=== PATIENT | male | born 1950 | race Caucasian/White ===

== ENCOUNTER 2018-02-13 15:23 | Outpatient (CLI) | payer OTHER, SELFPAY ==
--- NOTE | 2018-02-13 14:55 | DI.RAD_ITS ---
SYMPTOMS/DIAGNOSIS: RT HIP PAIN, M25.559 RIGHT HIP AND PELVIS: Two views. There is moderately severe narrowing of the right hip joint. There are osteophytes arising from the acetabular roof and the femoral head. Mild subchondral sclerosis is present. The left hip shows similar changes. The sacroiliac joints and symphysis pubis are intact. The bones are intact. Surgical clips are seen inferior to the pelvis most consistent with prior vasectomy. Post surgical changes are seen in the lower lumbar spine. IMPRESSION: Moderately severe degenerative changes of the hips, right greater than left.
== END 2018-02-13 15:43 ==
PROVIDERS: PCP Emergency Medicine; Visit Provider Emergency Medicine
DX: M25.551 Pain in right hip (principal); M16.0 Bilateral primary osteoarthritis of hip
CPT/HCPCS: 73502

== ENCOUNTER 2018-04-15 12:47 | Outpatient (CLI) | payer OTHER, SELFPAY ==
[2018-04-15 14:53] LABS: HCT 43.6 % (40.0-50.0); HGB 14.9 g/dL (13.5-17.5); Mean Corp. HGB Concentration 34.2 g/dL (32.0-36.0); Mean Corpuscular Hemoglobin 31.4 pg (27.0-33.0); Mean Corpuscular Volume 91.8 fL (80-95); Mean Platelet Volume 10.2 fL (8.0-11.0); Platelet Count 229 x1000/uL (130-400); RBC 4.75 m/cumm (4.50-6.00); RBC Distribution Width 13.2 % (11.8-14.1); White Blood Cell Count 8.27 k/cumm (4.4-10.8)
== END 2018-04-15 13:07 ==
PROVIDERS: PCP Emergency Medicine; Visit Provider Orthopaedic Surgery
DX: M25.551 Pain in right hip (principal); M16.11 Unilateral primary osteoarthritis, right hip; Z01.818 Encounter for other preprocedural examination
CPT/HCPCS: 36415; 85027; 86850; 86900; 86901

== ENCOUNTER 2018-04-22 08:56 | Inpatient (IN) | payer OTHER, MEDICARE, SELFPAY ==
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
[2018-04-15 14:20] VITALS: BP 118/80; PULSE 88; RESP 17; TEMP 37.1; O2SAT 97
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
[2018-04-22] VITALS (17 sets, daily range): BP systolic 79–123; BP diastolic 45–79; PULSE 56–92; RESP 11–18; TEMP 35.9–36.6; O2SAT 94–98
[2018-04-22] MEDS: Lactated Ringers 1,000 ML 80 ML IV ×4 (10:06→17:10)
[2018-04-22 14:20] LABS: HCT 38.4 % (40.0-50.0); HGB 12.9 g/dL (13.5-17.5)
--- NOTE | 2018-04-22 15:06 | DI.RAD_ITS ---
SYMPTOM/DIAGNOSIS: CHECK TOTAL HIP COMPONENTS IN RR PORTABLE PELVIS: Patient is status post placement of a right total lhip prosthesis. The components appear well aligned.
[2018-04-22] MEDS: fentaNYL 100 MCG/2 ML VIAL IVP ×2 (16:15→17:02)
--- NOTE | 2018-04-22 17:58 | NUR.NOTE ---
Nursing Note: 0-pt arrived via stretcher to room 235 with iv running in left forearm ,pt is awake alert oriented ,s/p right hip has xeroform drsg intact with and abductor pillow between legs
[2018-04-22] MEDS: Ketorolac 30 MG/ML VIAL IVP (18:58)
[2018-04-22] MEDS: oxyCODONE-CR 10 MG TABCR PO (18:58)
[2018-04-22] MEDS: Normal Saline Flush 10 ML SYR IV (19:00)
[2018-04-22] MEDS: fentaNYL 100 MCG/2 ML VIAL 50 MCG IVP (19:01)
[2018-04-22] MEDS: Docusate Sodium 100 MG CAP PO (19:25)
[2018-04-22] MEDS: Normal Saline 1,000 ML 125 ML IV (19:40)
[2018-04-22] MEDS: Tamsulosin 0.4 MG CAPCR PO ×2 (22:00→23:30)
[2018-04-23] VITALS (7 sets, daily range): BP systolic 95–115; BP diastolic 54–71; PULSE 75–101; RESP 17–19; TEMP 36.4–37.6; O2SAT 94–95
[2018-04-23] MEDS: Ketorolac 30 MG/ML VIAL IVP ×4 (00:16→18:10)
[2018-04-23] MEDS: HYDROcodone 5/Acetaminophen 325 TAB PO ×2 (02:55→09:08)
[2018-04-23] MEDS: Normal Saline 1,000 ML 125 ML IV (03:45)
[2018-04-23] MEDS: oxyCODONE-CR 10 MG TABCR PO ×2 (06:14→18:11)
[2018-04-23 07:59] LABS: HCT 34.6 % (40.0-50.0); HGB 11.3 g/dL (13.5-17.5); Mean Corp. HGB Concentration 32.7 g/dL (32.0-36.0); Mean Corpuscular Hemoglobin 30.5 pg (27.0-33.0); Mean Corpuscular Volume 93.5 fL (80-95); Mean Platelet Volume 10.1 fL (8.0-11.0); Platelet Count 176 x1000/uL (130-400); RBC Distribution Width 12.7 % (11.8-14.1); White Blood Cell Count 7.39 k/cumm (4.4-10.8)
--- NOTE | 2018-04-23 08:06 | PDOC.CMIN ---
- If Service Date Differs Date of service: 04/23/18 Time of Service: 08:06 Care Management Initial Assess REASON FOR HOSPITALIZATION:: OA (R) Hip. PAST MEDICAL HISTORY/PAST SURGICAL HISTORY:: Degenerative joint disease (right/left hip), overweight, onychomycosis, microscopic hematuria, lactose intolerance, hyperlipidemia, hx. tobacco use, osteoarthrosis (bilateral feet), anxiety, BPH, atypical nevi, anxiety disorder. Surgical hx: appendectomy, colonoscopy, vasectomy, arthroscopy left knee, lumbar spinal fusion. PREVIOUS FUNCTIONAL STATUS/SOCIAL/FAMILY SUPPORTS:: Leonard resides in [facility] with his , Lanny. He has three adult children and two grandchildren, all of whom reside in [place] and are reportedly supportive. 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 He is independent with his ADLs and transportation and has all necessary ambulatory equipment. CURRENT FUNCTIONAL STATUS:: Leonard is lying in bed when visits this afternoon. He is engaged in conversation, makes good eye contact, and is talkative. Leonard reports that he has been getting IV and PO pain medications and his pain is well controlled. He is scheduled to retire at the end of the month so is now on 'vacation' during his recovery. Leonard reports that he has a good support system and has no worries about returning home. He is interested at purchasing a raised toilet seat ([employer]) but has all other necessary equipment from a past surgical procedure. ADVANCE DIRECTIVES:: None on file at [facility]. Education provided; Leonard is not interested in completing them out at this time. Has patient been provided with information about the portal?: Yes Did the patient sign up for the portal?: No CODE STATUS:: Full Code INSURANCE COVERAGE / FINANCIAL ISSUES:: Medicare, [employer] [facility]. CURRENT HOME/COMMUNITY SERVICES/EQUIPMENT:: No current home or community services. Patient owns a FWW and cane. PRIMARY CARE PHYSICIAN:: Jose Donnelly MD. POTENTIAL DISCHARGE NEEDS:: Follow up appointment with surgical services, PT services (outpatient or H?). PATIENT/FAMILY EDUCATION NEEDS:: Discharge education, any limitations, and follow up plan of care. Ask Me Three discussion. ANTICIPATED BARRIERS TO DISCHARGE:: No anticipated barriers to discharge. TRANSPORTATION:: Leonard will transport via private vehicle with his , Lanny. PLAN:: Leonard will discharge when medically ready per MD. Anticipate patient will discharge with no services vs. [facility] PT/OT vs. outpatient PT and follow up with surgical services. CM will continue to offer support to patient and care team regarding discharge planning and disposition.
[2018-04-23] MEDS: Cetirizine 10 MG TAB PO (08:26)
[2018-04-23] MEDS: Pantoprazole 40 MG TABCR PO (08:26)
[2018-04-23] MEDS: Sertraline 50 MG TAB PO (08:26)
[2018-04-23] MEDS: Multivitamin w/Minerals TAB 1 TAB PO (08:26)
[2018-04-23] MEDS: Docusate Sodium 100 MG CAP PO ×3 (08:27→19:25)
--- NOTE | 2018-04-23 08:40 | INITIAL_ITS ---
- If Service Date Differs Date of service: 04/23/18 Time of Service: 08:06 Care Management Initial Assess REASON FOR HOSPITALIZATION:: OA (R) Hip. PAST MEDICAL HISTORY/PAST SURGICAL HISTORY:: Degenerative joint disease (right/ left hip), overweight, onychomycosis, microscopic hematuria, lactose intolerance , hyperlipidemia, hx. tobacco use, osteoarthrosis (bilateral feet), anxiety, BPH , atypical nevi, anxiety disorder. Surgical hx: appendectomy, colonoscopy, vasectomy, arthroscopy left knee, lumbar spinal fusion. PREVIOUS FUNCTIONAL STATUS/SOCIAL/FAMILY SUPPORTS:: Leonard resides in [facility] with his , Lanny. He has three adult children and two grandchildren, all of whom reside in [place] and are reportedly supportive. 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 He is independent with his ADLs and transportation and has all necessary ambulatory equipment. CURRENT FUNCTIONAL STATUS:: Leonard is lying in bed when visits this afternoon. He is engaged in conversation, makes good eye contact, and is talkative. Leonard reports that he has been getting IV and PO pain medications and his pain is well controlled. He is scheduled to retire at the end of the month so is now on 'vacation' during his recovery. Leonard reports that he has a good support system and has no worries about returning home. He is interested at purchasing a raised toilet seat ([employer]) but has all other necessary equipment from a past surgical procedure. ADVANCE DIRECTIVES:: None on file at [facility]. Education provided; Leonard is not interested in completing them out at this time. Has patient been provided with information about the portal?: Yes Did the patient sign up for the portal?: No CODE STATUS:: Full Code INSURANCE COVERAGE / FINANCIAL ISSUES:: Medicare, [facility]. CURRENT HOME/COMMUNITY SERVICES/EQUIPMENT:: No current home or community services. Patient owns a FWW and cane. PRIMARY CARE PHYSICIAN:: Jose Donnelly MD. POTENTIAL DISCHARGE NEEDS:: Follow up appointment with surgical services, PT services (outpatient or H?). PATIENT/FAMILY EDUCATION NEEDS:: Discharge education, any limitations, and follow up plan of care. Ask Me Three discussion. ANTICIPATED BARRIERS TO DISCHARGE:: No anticipated barriers to discharge. TRANSPORTATION:: Leonard will transport via private vehicle with his , Lanny. PLAN:: Leonard will discharge when medically ready per MD. Anticipate patient will discharge with no services vs. [facility] PT/OT vs. outpatient PT and follow up with surgical services. CM will continue to offer support to patient and care team regarding discharge planning and disposition.
--- NOTE | 2018-04-23 10:13 | PT.INIE ---
Date of service: 04/23/18 Time of Service: 10:01 PT Notes Inpatient Physical Therapy Evaluation Date: 04/23/2018 Referring Doctor: Abiel Vaz PT Orders: PT CONSULT: Mobilize postop R THR, total hip precautions are, WBAT to R leg. Precautions: WBAT right lower extremity, posterior total hip precautions Patient Profile/Admitting Diagnosis: Patient is a 67-year-old male status post right total hip arthroplasty by Dr. Vaz 04/22/2018 PMHX: Lumbar spinal fusion, arthroscopy left knee, anxiety, depression, appendectomy, colonoscopy, vasectomy Social History/Home Situation: Lives with spouse in house, baseline mobility independent gait without assistive device, independent with ADLs. Patient reports he may need a raised toilet seat or 3 in 1 commode for bathroom to maintain hip at discharge. Equipment Owned/DME: FWW, cane, needs raised toilet seat Subjective: Lying in bed watching TV, alert and agreeable to PT consult. Reports he received pain medication prior to session and not having any pain at this time. present evaluation. Objective: General Observation: IV left upper extremity, Argueta catheter, right hip dressing, YONI hose Mental Status: A and O x3 Pain: 0/10 right hip Bed Mobility/Transfers: Supine to sit HOB 30 degrees min assist for right lower extremity to edge of bed Sit to stand SBA with FWW Bed to chair SBA with FWW Stand to sit: SBA, cues for hand placement Gait: SBA with FWW 25 feet x2, WBAT R LE,, slow step to gait pattern instruction provided for step sequence. Patient left up in chair after gait completed. Therex: Patient has issued DENIA preop packet with home exercise program. Initiated ankle pumps, quad sets, glutes sets, long arc quads x20 reps right lower extremity. Precautions: Patient issued handouts and instructed in 3/3 posterior total hip precautions for right lower extremity, patient verbalized understanding. Balance: Static Sitting: Normal Dynamic Sitting: Normal Static Standing: Fair Dynamic Standing: Fair Special Tests: Mobility Limitations Standardized Measure [facility] AM-PAC 6 clicks Basic Mobility Inpatient Short Form: Raw Score: 18 standardized Score: 43.63 CMS Score: 46.58% CMS Modifier: CK Informed Consent/Education: Patient instructed in purpose of PT consult and plan of care. Assessment: Patient is a 67-year-old male status post right total hip arthroplasty by Dr. Vaz 04/22/2018 in setting of lumbar spinal fusion, arthroscopy left knee. Patient presents with the following impairment level findings: Weakness left hip postoperatively, affecting ability to lift leg into and out of bed, decreased strength with standing transfers and gait mobility, requiring front wheel walker for gait stability postoperatively to prevent falls, decreased static and dynamic standing balance. Due to posterior hip precautions patient would benefit from 3 in 1 commode or raised toilet seat for safe toileting and home setting, requested OT consult for instruction in ADLs with total hip precautions. Anticipate return to home setting once goals met and patient medically clear. Impairments are contributing to the following functional limitations: AMPAC score CMS Score: 46.58 Patient is assessed as Moderate [id number] complexity based on the following: History: See above Examination: See above Presentation: Evolving Decision Making:AMPAC score CMS Score: 46.58 Goals: Goals X1 week 1. Supine-Sit: Independent 2. Sit-Supine: Independent 3. Sit-Stand: Supervision with FWW 4. Stand-Sit: Supervision 5. Bed-Chair: Supervision with FWW 6. Chair-Bed: Supervision with FWW 7. Gait: Supervision with FWW 150 feet, WBAT RLE 8. Stairs: Up/down 3 steps with railing, WBAT RLE, SBA 9. Independent with home exercise program DENIA Plan of Care/Treatment Plan: 1-2x/day, 7 days/week x 1 week. Plan of care has been reviewed with the SCOOTER MECHANIC providing the service under Physical Therapy direction. Initiate Physical Therapy intervention for strengthening, bed mobility, transfers, gait, stairs, balance training, use of assistive device. DISCHARGE RECOMMENDATIONS: Home with raised toilet seat TREATMENT CODE/TIME: 26 minutes IE 10:00 AM G Codes in the area mobility of walking and moving around: current status [id number] CK; projected status GP [id number]. Discharge status (if discharging) GP [id number] CK based on AMPAC score CMS Score: 46.58 Lydia Savage PT Disclaimer: This note was created using [employer] voice recognition software. It was reviewed for major content. However, there may be multiple small discrepancies and errors due to the voice recognition aspects of the software.
--- NOTE | 2018-04-23 10:25 | IN_ITS ---
Date of service: 04/23/18 Time of Service: 10:01 PT Notes Inpatient Physical Therapy Evaluation Date: 04/23/2018 Referring Doctor: Abiel Vaz PT Orders: PT CONSULT: Mobilize postop R THR, total hip precautions are, WBAT to R leg. Precautions: WBAT right lower extremity, posterior total hip precautions Patient Profile/Admitting Diagnosis: Patient is a 67-year-old male status post right total hip arthroplasty by Dr. Vaz 04/22/2018 PMHX: Lumbar spinal fusion, arthroscopy left knee, anxiety, depression, appendectomy, colonoscopy, vasectomy Social History/Home Situation: Lives with spouse in house, baseline mobility independent gait without assistive device, independent with ADLs. Patient reports he may need a raised toilet seat or 3 in 1 commode for bathroom to maintain hip at discharge. Equipment Owned/DME: FWW, cane, needs raised toilet seat Subjective: Lying in bed watching TV, alert and agreeable to PT consult. Reports he received pain medication prior to session and not having any pain at this time. present evaluation. Objective: General Observation: IV left upper extremity, Argueta catheter, right hip dressing , YONI hose Mental Status: A and O x3 Pain: 0/10 right hip Bed Mobility/Transfers: Supine to sit HOB 30 degrees min assist for right lower extremity to edge of bed Sit to stand SBA with FWW Bed to chair SBA with FWW Stand to sit: SBA, cues for hand placement Gait: SBA with FWW 25 feet x2, WBAT R LE,, slow step to gait pattern instruction provided for step sequence. Patient left up in chair after gait completed. Therex: Patient has issued DENIA preop packet with home exercise program. Initiated ankle pumps, quad sets, glutes sets, long arc quads x20 reps right lower extremity. Precautions: Patient issued handouts and instructed in 3/3 posterior total hip precautions for right lower extremity, patient verbalized understanding. Balance: Static Sitting: Normal Dynamic Sitting: Normal Static Standing: Fair Dynamic Standing: Fair Special Tests: Mobility Limitations Standardized Measure [facility] AM-PAC 6 clicks Basic Mobility Inpatient Short Form: Raw Score: 18 standardized Score: 43.63 CMS Score: 46.58% CMS Modifier: CK Informed Consent/Education: Patient instructed in purpose of PT consult and plan of care. Assessment: Patient is a 67-year-old male status post right total hip arthroplasty by Dr. Vaz 04/22/2018 in setting of lumbar spinal fusion, arthroscopy left knee. Patient presents with the following impairment level findings: Weakness left hip postoperatively, affecting ability to lift leg into and out of bed, decreased strength with standing transfers and gait mobility, requiring front wheel walker for gait stability postoperatively to prevent falls, decreased static and dynamic standing balance. Due to posterior hip precautions patient would benefit from 3 in 1 commode or raised toilet seat for safe toileting and home setting, requested OT consult for instruction in ADLs with total hip precautions. Anticipate return to home setting once goals met and patient medically clear. Impairments are contributing to the following functional limitations: AMPAC score CMS Score: 46.58 Patient is assessed as Moderate 28680 complexity based on the following: History: See above Examination: See above Presentation: Evolving Decision Making:AMPAC score CMS Score: 46.58 Goals: Goals X1 week 1. Supine-Sit: Independent 2. Sit-Supine: Independent 3. Sit-Stand: Supervision with FWW 4. Stand-Sit: Supervision 5. Bed-Chair: Supervision with FWW 6. Chair-Bed: Supervision with FWW 7. Gait: Supervision with FWW 150 feet, WBAT RLE 8. Stairs: Up/down 3 steps with railing, WBAT RLE, SBA 9. Independent with home exercise program DENIA Plan of Care/Treatment Plan: 1-2x/day, 7 days/week x 1 week. Plan of care has been reviewed with the PASTRYCOOK providing the service under Physical Therapy direction. Initiate Physical Therapy intervention for strengthening, bed mobility, transfers, gait, stairs, balance training, use of assistive device. DISCHARGE RECOMMENDATIONS: Home with raised toilet seat TREATMENT CODE/TIME: 26 minutes IE 10:00 AM G Codes in the area mobility of walking and moving around: current status [id number] CK; projected status GP [id number]. Discharge status (if discharging) GP [id number] CK based on AMPAC score CMS Score: 46.58 Lydia Savage PT Disclaimer: This note was created using Trampoline voice recognition software. It was reviewed for major content. However, there may be multiple small discrepancies and errors due to the voice recognition aspects of the software.
--- NOTE | 2018-04-23 11:14 | OT.INIE ---
Occupational Therapy Notes Inpatient Occupational Therapy Evaluation Date: 04/23/18 Referring Doctor:Abiel Vaz MD OT Orders: Right DENIA Precautions: Posterior Hip Precautions, WBAT (R) LE PATIENT PROFILE/ADMITTING DIAGNOSIS: Pt is a 67 year old male who s/p (R) total hip on 04/22/[address] Vaz. Past Medical History:Lumbar spinal fusion, arthroscopy left knee, anxiety, depression, appendectomy, colonoscopy, vasectomy, DJD Social History/Home Situation: Pt reports that he lives in a private home with his . He reports that he has 4 stairs into his home with (B) railings and 14 stairs down to his basement where his man cave s with (B) railings. Pt reports that he is (I) with all ADLs/IADLs. Equipment owned/DME: Grab bars, cane, recommend that pt get raised toilet seat to adhere to posterior hip precautions. SUBJECTIVE: Pt sitting in chair when OT arrived. He is agreeable to OT session. OBJECTIVE: General Observation: Argueta, IV (L) UE, (B) YONI stockings Mental Status: A&Ox3 Pain:no c/o pain ROM: RUE WNL L UE WNL STRENGTH: RUE 5/5 throughout LUE 5/5 throughout SENSATION: Pt intact to light touch and sensation through (B) UEs. FUNCTIONAL MOBILITY/ADLS: BATHING Educated on use of long handled sponge DRESSING Dressing LE Pt educated and trained in sock aid for (B) donning of socks which pt was able to demonstrate with ideal technique, trained in use of dressing stick, gas appliance adjuster, shoe horn. Pt was able to demonstrate ideal technique with donning and doffing pants with use of adaptive equipment (I) with adherence to posterior hip precautions. TOILETING Recommend raised toilet seat at home for increased (I) in toileting routine and adherence to posterior hip precautions. BALANCE: Static sitting Normal Dynamic Sitting Normal SPECIAL TESTS: Daily Activity Limitations Standardized Measure [facility] AM -PAC ?6 clicks? Daily Activity Inpatient Short Form: Raw score: 23 Standardized score: 51.12 CMS score: 15.86% CMS modifier: CI INFORMED CONSENT/EDUCATION: Pt instructed in purpose of OT Consult and plan of care. ASSESSMENT: Patient is a 67-year-old male referred to occupational therapy services with diagnosis of s/p (R) posterior hip precautions in setting of Lumbar spinal fusion, arthroscopy left knee, anxiety, depression, appendectomy, colonoscopy, vasectomy, DJD. Patient presents with clinical signs and symptoms consistent with this dx. Pt was educated in trained in adaptive equipment for ADL/IADL routine tto increase pts (I) with adherence to posterior hip precautions. Pt demonstrated ideal technique and was provided written and illustrated handouts for posterior hip precautions, standing up and sitting down s/p surgery, ambulating and performing functional activities with walker, using a sock aid, donning pants with adaptive equipment. Pt verbalized understanding of this. OT recommends that pt return home when medically cleared per MD. Pt would benefit from raised toilet seat for increased (I) in toileting routine with adherence to posterior hip precautions. AMPAC score 23, CMS score 15.86% Patient is assessed as a Low 90318 complexity based on the following: History: See Above Examination: See Above Presentation: Evolving Decision Making: AMPAC score 23, CMS score 15.86% GOALS N/A PLAN OF CARE/TREATMENT PLAN: OT consult only. DISCHARGE RECOMMENDATIONS Home when medically cleared per MD. Recommend raised toilet seat for increased (I) in toileting routine with adherence to posterior hip precautions. TREATMENT TIME/MINUTES/CODES 25 min IE, Self care x1 (10:40) G Codes in the area of self- : washing oneself, toileting, dressing, eating and drinking, current status GO G8987 CI projected status GO [id number]. Discharge status (if discharging) GO [id number]. Rosalia Urbano OTR/L
--- NOTE | 2018-04-23 11:30 | OTIE_ITS ---
Occupational Therapy Notes Inpatient Occupational Therapy Evaluation Date: 04/23/18 Referring Doctor:Abiel Vaz MD OT Orders: Right DENIA Precautions: Posterior Hip Precautions, WBAT (R) LE PATIENT PROFILE/ADMITTING DIAGNOSIS: Pt is a 67 year old male who s/p (R) total hip on 04/22/[address] Vaz. Past Medical History:Lumbar spinal fusion, arthroscopy left knee, anxiety, depression, appendectomy, colonoscopy, vasectomy, DJD Social History/Home Situation: Pt reports that he lives in a private home with his . He reports that he has 4 stairs into his home with (B) railings and 14 stairs down to his basement where his man cave s with (B) railings. Pt reports that he is (I) with all ADLs/IADLs. Equipment owned/DME: Grab bars, cane, recommend that pt get raised toilet seat to adhere to posterior hip precautions. SUBJECTIVE: Pt sitting in chair when OT arrived. He is agreeable to OT session. OBJECTIVE: General Observation: Argueta, IV (L) UE, (B) YONI stockings Mental Status: A&Ox3 Pain:no c/o pain ROM: RUE WNL L UE WNL STRENGTH: RUE 5/5 throughout LUE 5/5 throughout SENSATION: Pt intact to light touch and sensation through (B) UEs. FUNCTIONAL MOBILITY/ADLS: BATHING Educated on use of long handled sponge DRESSING Dressing LE Pt educated and trained in sock aid for (B) donning of socks which pt was able to demonstrate with ideal technique, trained in use of dressing stick, teletypewriter operator, shoe horn. Pt was able to demonstrate ideal technique with donning and doffing pants with use of adaptive equipment (I) with adherence to posterior hip precautions. TOILETING Recommend raised toilet seat at home for increased (I) in toileting routine and adherence to posterior hip precautions. BALANCE: Static sitting Normal Dynamic Sitting Normal SPECIAL TESTS: Daily Activity Limitations Standardized Measure [facility] AM -PAC ?6 clicks? Daily Activity Inpatient Short Form: Raw score: 23 Standardized score: 51.12 CMS score: 15.86 % CMS modifier: CI INFORMED CONSENT/EDUCATION: Pt instructed in purpose of OT Consult and plan of care. ASSESSMENT: Patient is a 67-year-old male referred to occupational therapy services with diagnosis of s/p (R) posterior hip precautions in setting of Lumbar spinal fusion, arthroscopy left knee, anxiety, depression, appendectomy, colonoscopy, vasectomy, DJD. Patient presents with clinical signs and symptoms consistent with this dx. Pt was educated in trained in adaptive equipment for ADL/IADL routine tto increase pts (I) with adherence to posterior hip precautions. Pt demonstrated ideal technique and was provided written and illustrated handouts for posterior hip precautions, standing up and sitting down s/p surgery, ambulating and performing functional activities with walker, using a sock aid, donning pants with adaptive equipment. Pt verbalized understanding of this. OT recommends that pt return home when medically cleared per MD. Pt would benefit from raised toilet seat for increased (I) in toileting routine with adherence to posterior hip precautions. AMPAC score 23, CMS score 15.86% Patient is assessed as a Low 89371 complexity based on the following: History: See Above Examination: See Above Presentation: Evolving Decision Making: AMPAC score 23, CMS score 15.86% GOALS N/A PLAN OF CARE/TREATMENT PLAN: OT consult only. DISCHARGE RECOMMENDATIONS Home when medically cleared per MD. Recommend raised toilet seat for increased (I) in toileting routine with adherence to posterior hip precautions. TREATMENT TIME/MINUTES/CODES 25 min IE, Self care x1 (10:40) G Codes in the area of self- : washing oneself, toileting, dressing, eating and drinking, current status GO G8987 CI projected status GO [id number]. Discharge status (if discharging) GO [id number]. Rosalia Urbano OTR/L
--- NOTE | 2018-04-23 11:48 | PT.INTREAT ---
Date of service: 04/23/18 Time of Service: 11:48 PT Notes Inpatient Physical Therapy Treatment Note Date: 04/23/18 PRECAUTIONS: WBAT R LE SUBJECTIVE: Pt sitting in chair, agreeable to second therapy session. Reports right hip feels 'stiff' but not painful. OBJECTIVE: PAIN: no c/o pain BED MOBILITY/TRANSFERS Sit-stand: SBA wtih FWW Stand-sit: SBA GAIT Assistive Device: FWW Weight bearing: WBAT R LE Assist: SBA Distance: 40ftx2 Deviation: slow ivy with step to gait pattern. Pt returned to chair after gait completed to be up for lunch. THEREX: seated ankle pumps, long arc quads x 20 reps ASSESSMENT: Pt with slowly progressing mobility post op DENIA. Able to be up in chair for most of morning and mobilize twice with PT. PLAN: Progress strengthening Progress gait training TREATMENT CODE/TIME: 24min TAx1 TPx1 11:45 Lydia Savage PT
--- NOTE | 2018-04-23 13:32 | W.PM.PROGNOT ---
Date of Service Date of service: 04/23/18 Time of Service: 13:32 Assessment and Plan (1) Degenerative joint disease of right hip: Start date: 04/22/18 Start time: 08:00 Current visit: Yes Status: Chronic Assessment: Stable postop day #1 right total hip replacement. He is moving well and eating and drinking well. I do not think he needs his Argueta. He also does not need IV fluids. Plan: DC IV fluids. We will keep an IV in for access. Continue to mobilize with PT. Check hemoglobin tomorrow. He will be discharged when he is independent with transfers and ambulation and is taking only p.o. pain meds. Will DC Argueta also. Subjective Patient reports: feels better, tolerating liquids well and tolerating a regular diet Interval history since last seen: Has been up walking twice with physical therapy today. Exam Narrative Exam Narrative: He is afebrile vital signs stable. Hemoglobin 11.3 g this morning. He actively dorsiflexes and plantar flexes his right ankle. He has good capillary refill to the toes. He has normal sensation light touch in the toes on the right. Dressing is dry right hip. Argueta catheter is in place and draining well. Objective Objective Clinical Data: Abnormal lab results 04/22/18 04/23/18 Range/Units 14:12 07:32 RBC 3.70 L (4.50-6.00) m/cumm Hgb 12.9 L 11.3 L (13.5-17.5) g/dL Hct 38.4 L 34.6 L (40.0-50.0) % Vital Signs Temperature 37.1 C 04/23/18 11:26 Temperature Source Tympanic 04/23/18 11:26 Pulse 101 H 04/23/18 11:26 Pulse Rhythm Regular 04/23/18 09:00 Respiratory Rate 17 04/23/18 11:26 Respiratory Effort Non-Labored 04/23/18 09:00 Respiratory Depth Normal 04/23/18 09:00 Respiratory Pattern Normal 04/23/18 09:00 Blood Pressure 95/58 L 04/23/18 11:26 Pulse Oximetry 94 L 04/23/18 11:26 Respiratory End-tidal CO2 36 04/22/18 17:14 Oxygen Delivery Method Room Air 04/23/18 11:26 Oxygen Flow Rate 0 04/23/18 11:26 Pain Level 4 04/23/18 11:34 Intake & Output 04/22/18 04/23/18 04/23/18 23:59 11:59 23:59 Intake Total 2826 / 2826 1107.500 / 1107.500 240 / 240 Output Total 800 / 800 600 / 600 Balance 2025 / 2025 507.500 / 507.500 240 / 240 Intake: IV 2496 / 2496 987.500 / 987.500 Oral 330 / 330 120 / 120 240 / 240 Output: Urine 600 / 600 Estimated Blood Loss 800 / 800 Other: Urine Color Yellow Dark Evita Urine Appearance Clear Clear Emesis Description None Laboratory Results WBC 7.39 k/cumm (4.4-10.8) 04/23/18 07:32 RBC 3.70 m/cumm (4.50-6.00) L 04/23/18 07:32 Hgb 11.3 g/dL (13.5-17.5) L 04/23/18 07:32 Hct 34.6 % (40.0-50.0) L 04/23/18 07:32 MCV 93.5 fL (80-95) 04/23/18 07:32 MCH 30.5 pg (27.0-33.0) 04/23/18 07:32 MCHC 32.7 g/dL (32.0-36.0) 04/23/18 07:32 RDW 12.7 % (11.8-14.1) 04/23/18 07:32 Plt Count 176 x1000/uL (130-400) 04/23/18 07:32 MPV 10.1 fL (8.0-11.0) 04/23/18 07:32
--- NOTE | 2018-04-23 15:28 | PHARADMIT ---
Admission Pharmacy Clinical Review OA (R) hip Code Status Full Code Current Weight 100.3 kg Renally Cleared and Narrow Therapeutic Index Meds Crcl ~68.00 mL/min current meds okay QTc Value / Action Taken QTc from 10/19/17 425 BP Control, Fever BP 95/58 afebrile Electrolytes reviewed n/a DVT Prophylaxis enoxaparin Opiate Usage / Scheduled Bowel Regimen Ordered carlton/prn and carlton docusate Plt/SCr for Heparin / Enoxaparin plt 176 SCr-n/a INR for Warfarin n/a H/H stable, WBC/Bands h/h 11.3/34.6 wbc 7.39 Antibiotic appropriateness n/a Cultures and Sensitivities n/a Surgical ABX d/c within 24 hr yes DM control / Insulin Dosing n/a Heart Failure (Check EF%) (SOLANGE's, B-Block, Diuretics) none IV to PO Switch n/a Home Meds Reviewed yes Home Meds Not Ordered all ordered Comments working with PT and on pain control
[2018-04-23] MEDS: Enoxaparin 40 MG/0.4 ML SYR SC (16:08)
[2018-04-23] MEDS: Normal Saline Flush 10 ML SYR IV (18:10)
--- NOTE | 2018-04-23 18:16 | ROE_ITS ---
DATE OF PROCEDURE: April 22, 2018 PREOPERATIVE DIAGNOSIS: Osteoarthritis right hip. POSTOPERATIVE DIAGNOSIS: Osteoarthritis right hip. PROCEDURE: Right total hip arthroplasty. COMPONENTS USED: A size 6 DePuy stem, a size 52 acetabular shell, a 52 x 36 acetabular insert, and a 36-mm +1.5 ceramic femoral head. The components were all press fit. SURGEON: Abiel Vaz M.D. SURGICAL ASST: Binu French PA-C ANESTHESIA: Spinal, Chiquis Ruiz CRNA ESTIMATED BLOOD LOSS: 500 cc INDICATIONS: This is a 67-year-old white male with end-stage osteoarthritis of his right hip. This has been progressing for several years. He has reached the point now where he is extremely limited i n his activities because of pain. He has noted considerable restriction of motion of his hip as well . X-rays confirmed end-stage osteoarthritis of his right hip. Total hip arthroplasty was recommende d to alleviate his pain and to restore useful function to the right hip. The risks and complications of the procedure were explained to the patient in detail preoperatively. PROCEDURE: The patient was taken to the Operating Room on 04/22/18. After successful spinal anesthe tic was administered, he was placed in the right lateral position on the operating table. His positi on was maintained with a pneumatic beanbag. The right hip was then prepped and draped free in the [facility] sterile fashion. A standard posterolateral incision was made centered over the greater trochanter. The incision was c arried down to the iliotibial band and gluteus fascia. The iliotibial band and gluteus fascia were i ncised in line with the skin incision. Charnley self-retaining retractors were inserted. While atte mpting to expose the posterior capsule, it was noted that the patient had marked restriction of inter nal rotation. I proceeded to incise the posterior capsule with electrocautery. Internal rotation di d not improve. I then tried to release as much of the capsule as possible, especially from the poste rior femoral neck. I then put a bone hook under the femoral neck and despite using a lot of force an d with the help of commissary assistant, I could not dislocate his right hip. I tried multiple attempts even af ter trying to excise as much of the capsule as I could see from this approach. They were unsuccessfu l. I then used an oscillating saw and transected the femoral neck. I then was able to remove the fe moral head in a piecemeal fashion using a saw, osteotomes, and a mallet. I then cut the femoral neck again at the appropriate level and angle to help with exposure. Anterior and posterior acetabular r etractors were inserted. I attempted to excise more of the capsule. The capsule of the hip was calc ified and was difficult to excise. Even the scalpel could not go through some of the tissue. With t carlos help of a rongeur and osteotome I was able to improve exposure. Once exposure was obtained, reaming was straightforward and simple. I performed serial reamings of t carlos acetabulum with increasing size reamers up until there was a good fit at size 52 mm. There was ra w bleeding from all acetabular surfaces at this point. A 52-mm acetabular shell was then press fit w ith an excellent fit with no motion. The press fit was supplemented by one screw through the acetabu lar shell. A trial insert was placed and attention was turned to the femoral side. Again, the soft tissues were very tight and contracted. I needed the femoral neck elevator to elevat e the femur into the wound. I entered the femoral canal, first using a box chisel and then using ser ial straight reamers on power up to a size 6-7. Serial broaching was performed until I felt there wa s an excellent fit at size 6. I attempted to put the trial high-offset neck and femoral head but the soft tissues were too tight to allow me to put the trial components on the broach. I decided not to get an intraoperative x-ray and to just size the head by my clinical impression. The trial broach a s removed and the actual stem, porous coated, size 6 DePuy stem was then inserted and impacted into p lace until fully seated. I then was able to put a trial 1.5 36-mm head on the actual stem and perfor m a trial reduction. The trial reduction showed a stable hip to 90 degrees of flexion and 60 degrees of internal rotation. It was stable with external rotation and extension and there was minimal shuc k with longitudinal traction. I felt this was the correct size. I dislocated the hip again, took the trial femoral head off, and put the actual ceramic 36-mm +1.5 fe yuliet head onto the neck of the stem and impacted it into place with the impactor and mallet. I then reduced it into the acetabulum. The right thigh was abducted on a Renner stand and closure was begun. I filled the wound with tranexamic acid 2 grams in 150 cc of saline and let it stay in the wound for a minute and a half before suctioning. I then placed Betadine and saline in the wound, irrigated the wound thoroughly, and again let the Betadine stay in the wound for a minute before suctioning. Lorraine ng the approach I excised most of the hip capsule and there was no posterior capsule remaining to per form a posterior capsular flap. I infiltrated the margins of the wound down into the depths of the w ound with 0.5% Marcaine with epinephrine solution. I approximated the iliotibial band and gluteus fa scia with interrupted [id number]-[id number] sutures of #1 Vicryl suture material. The subcu was approximat ed with interrupted #2-0 Vicryl sutures and the skin edges were approximated with skin cathy. Ster ile dressings were applied of Xeroform gauze, sterile gauze 4x4s, ABD pad, and taped with foam elasti c tape. The patient was turned supine on the operating table and an abduction pillow splint was plac ed between his legs. He tolerated the procedure well. Hemoglobin obtained at the end of the case intraoperative was 12.9 grams. He was discharged to the Recovery Room in good condition.
[2018-04-23] MEDS: Tamsulosin 0.4 MG CAPCR PO (19:43)
[2018-04-24] MEDS: Normal Saline Flush 10 ML SYR IV ×3 (00:08→13:02)
[2018-04-24] MEDS: Ketorolac 30 MG/ML VIAL IVP ×3 (00:08→13:01)
[2018-04-24 00:14] VITALS: BP 104/63; PULSE 90; RESP 17; TEMP 36.9; O2SAT 92
[2018-04-24 04:52] VITALS: BP 142/72; PULSE 89; RESP 19; TEMP 37.6; O2SAT 96
[2018-04-24] MEDS: oxyCODONE-CR 10 MG TABCR PO (06:14)
[2018-04-24 07:27] LABS: HCT 31.3 % (40.0-50.0); HGB 10.3 g/dL (13.5-17.5); Mean Corp. HGB Concentration 32.9 g/dL (32.0-36.0); Mean Corpuscular Hemoglobin 30.7 pg (27.0-33.0); Mean Corpuscular Volume 93.2 fL (80-95); Mean Platelet Volume 10.5 fL (8.0-11.0); Platelet Count 162 x1000/uL (130-400); RBC 3.36 m/cumm (4.50-6.00); RBC Distribution Width 12.5 % (11.8-14.1); White Blood Cell Count 9.09 k/cumm (4.4-10.8)
[2018-04-24 07:40] VITALS: BP 119/64; PULSE 88; RESP 18; TEMP 36.7; O2SAT 95
[2018-04-24] MEDS: Multivitamin w/Minerals TAB 1 TAB PO (08:04)
[2018-04-24] MEDS: Sertraline 50 MG TAB PO (08:04)
[2018-04-24] MEDS: HYDROcodone 5/Acetaminophen 325 TAB PO (08:04)
[2018-04-24] MEDS: Pantoprazole 40 MG TABCR PO (08:04)
[2018-04-24] MEDS: Docusate Sodium 100 MG CAP PO ×2 (08:04→13:02)
[2018-04-24] MEDS: Cetirizine 10 MG TAB PO (08:05)
--- NOTE | 2018-04-24 10:03 | PT.INTREAT ---
Date of service: 04/24/18 Time of Service: 10:03 PT Notes Inpatient Physical Therapy Treatment Note Date: 04/24/18 PRECAUTIONS: WBAT on R, Posterior THR Prec SUBJECTIVE: Leonard states that he is feeling good and has no pain at this time. OBJECTIVE: PAIN: No c/o pain BED MOBILITY/TRANSFERS Sit-supine: I with flat Sit-stand: S Stand-sit: S GAIT Assistive Device: FWW Weight bearing: WBAT on R Assist: SBA Distance: 200' x2 Deviation: Step-through gaot pattern, cueing for increased pace THEREX: Patient completed a LE strengthening and stabilization program, as per flow sheet. STAIRS: Up/down 3x4 and 2x6 using B rails and a step-to pattern with supervision. ASSESSMENT: Patient tolerated session well without complaint. He was able to tolerate a progression in gait distance with FWW support. He requires cueing for increased pacing. Patient would benefit from continued strengthening and gait training. PLAN: Continue with PT's POC TREATMENT CODE/TIME: 40 minutes; TAx2/TP
[2018-04-24 11:45] VITALS: BP 107/67; PULSE 88; RESP 17; TEMP 36.1; O2SAT 94
--- NOTE | 2018-04-24 11:57 | PDOC.CMPRO ---
- If Service Date Differs Date of service: 04/24/18 Time of Service: 11:57 Care Management Progress Note S/O: Leonard is lying in bed with his , Lanny, and grandson at bedside. He is s/t day #2 for OA right hip. He is engaged in conversation, makes good eye contact, and is talkative. He reports that he is feeling well. He has been working with PT and will benefit from continued strengthening and gait training per PT. Anticipate patient will discharge home in the next day or two with new home PT/OT (?) vs. outpatient PT. A: 67 year old male admitted for OA Hip (R). P: Leonard will discharge home when medically ready per MD. Anticipate patient will discharge with outpatient PT (?) and follow up with surgical services. Leonard will transport via private vehicle with his , Lanny. CM will continue to offer support to patient, family, and care team regarding discharge planning and disposition.
--- NOTE | 2018-04-24 12:07 | CMPROGNOTE_ITS ---
- If Service Date Differs Date of service: 04/24/18 Time of Service: 11:57 Care Management Progress Note S/O: Leonard is lying in bed with his , Lanny, and grandson at bedside. He is s /t day #2 for OA right hip. He is engaged in conversation, makes good eye contact, and is talkative. He reports that he is feeling well. He has been working with PT and will benefit from continued strengthening and gait training per PT. Anticipate patient will discharge home in the next day or two with new home PT/OT (?) vs. outpatient PT. A: 67 year old male admitted for OA Hip (R). P: Leonard will discharge home when medically ready per MD. Anticipate patient will discharge with outpatient PT (?) and follow up with surgical services. Leonard will transport via private vehicle with his , Lanny. CM will continue to offer support to patient, family, and care team regarding discharge planning and disposition.
--- NOTE | 2018-04-24 13:11 | PT.INTREAT ---
Date of service: 04/24/18 Time of Service: 13:12
--- NOTE | 2018-04-24 13:40 | DSE_ITS ---
Date of service: 04/24/18 Time of Service: 13:33 DS: Diagnosis Discharge Diagnosis (1) Degenerative joint disease of right hip: Status: Chronic Discharge Plan Disposition Patient Disposition: HOME Condition: Good Discharge Details Reason For Visit: OA (R) HIP Admit Date/Time: 04/22/18 08:56 Admit Provider: Abiel Vaz Attending Provider: Aibel Vaz Primary Care Provider: Jose Donnelly Hospital Course Hospital Course: Patient was taken to the operating room on 04/22/18 where he underwent a R total hip arthroplasty without complication. He was mobilized by PT per protocol, achieving independance with transfers and ambulation by 04/24/18. He remained afebrile throughout his post operative course. Hemoglobin was 10.3 g on POD #2 and he showed no symptoms of anemia. By 04/24/18 he had achieved all acute care goals and was ready for discharge home. Home Meds and New Rx's Prescriptions: New hydrocodone-acetaminophen 5-325 mg tablet 1 tab PO Q6H PRN (Reason: pain) Qty: 20 RF: 0 ibuprofen 800 mg tablet 800 mg PO TID Qty: 60 RF: 0 ferrous sulfate 325 mg (65 mg iron) tablet,delayed release (DR/EC) 325 mg PO DAILY Qty: 30 RF: 0 Continue sertraline 50 mg tablet 50 mg PO DAILY Qty: 90 RF: 3 cetirizine [Zyrtec] 10 MG capsule 10 mg PO DAILY RF: 0 tamsulosin [Flomax] 0.4 MG capsule 0.4 mg PO HS RF: 0 Discharge Instructions Additional Instructions: Total hip precautions R for 6 weeks post-op. Walk every day as much as your discomfort allows. Use walker, crutches, or cane as long as you limp. May shower and get cathy wet tomorrow. After showering, pat cathy dry and cover with light gauze dressing so they don't catch on pants. Elevate R leg when sitting. Outpatient physical therapy with Michael [facility] on Sunday. Follow up in 's office in 3 weeks. Take one baby aspirin(81 mg) twice/day for 30 days to prevent blood clots in your legs. Take ibuprofen 3 times/day to decrease swelling and inflammation. Take hydrocodone, if needed, for breakthrough pain. Take one iron pill daily with food for one month to help restore blood loss from surgery. Referrals: Abiel Vaz MD [ [facility] STAFF PHYSICIAN] - (f/u 3 weeks) Adam Snyder PT [PHYSICAL THERAPIST] - None (Rehab R total hip replacement. Total hip precautions R for 6 weeks. Begin Sunday04/29/18 at the latest.) Activity:: Activity as Tolerated Equipment/Supplies:: Walker Diet:: As Tolerated Discharge Orders Discharge Orders: Discharge Order (Routine); Ordered 04/24/18 Ordered By: Abiel Vaz DS: Data Vitals/I&O Vitals and I&O: Vital Signs Temperature 36.1 C L 04/24/18 11:45 Temperature Source Tympanic 04/24/18 11:45 Pulse 88 04/24/18 11:45 Pulse Rhythm Regular 04/24/18 09:38 Respiratory Rate 17 04/24/18 11:45 Respiratory Effort Non-Labored 04/24/18 09:38 Respiratory Depth Normal 04/24/18 09:38 Respiratory Pattern Normal 04/24/18 09:38 Blood Pressure 107/67 04/24/18 11:45 Pulse Oximetry 94 L 04/24/18 11:45 Respiratory End-tidal CO2 36 04/22/18 17:14 Oxygen Delivery Method Room Air 04/24/18 11:45 Oxygen Flow Rate 0 04/24/18 11:45 Pain Level 0 04/24/18 13:01 Intake & Output 04/23/18 04/24/18 04/24/18 23:59 11:59 23:59 Intake Total 2229.583 / 2229.583 400 / 400 Output Total 450 / 450 300 / 300 Balance 1779.583 / 1779.583 100 / 100 Intake: IV 1749.583 / 1749.583 Oral 480 / 480 400 / 400 Output: Urine 450 / 450 300 / 300 Other: Urine Color Yellow Light Evita Urine Appearance Clear Clear Urine Odor Strong Normal Voiding Methods Urinal Toilet Labs on day of discharge: Labs from last 24 hours 04/24/18 06:44 WBC 9.09 RBC 3.36 L Hgb 10.3 L Hct 31.3 L MCV 93.2 MCH 30.7 MCHC 32.9 RDW 12.5 Plt Count 162 MPV 10.5 PFSH Family History Mother No problems noted. Father Essential hypertension Sister No problems noted. Brother No problems noted. Grandfather No problems noted. Grandfather No problems noted. Grandmother No problems noted. Grandmother Neoplasm H/O arthroscopy of left knee (Resolved) History of lumbar spinal fusion (Resolved) Appendectomy Colonoscopy - IV Sedation (07/21/16) Colonoscopy - MAC Vasectomy Family History Mother No problems noted. Father Essential hypertension Sister No problems noted. Brother No problems noted. Grandfather No problems noted. Grandfather No problems noted. Grandmother No problems noted. Grandmother Neoplasm Social History household members: spouse housing: house current occupational status: employed current occupation: [employer] pets and animals: Yes pets and animals: cat(s) frequency: 1-2 times per week duration: 15-30 minutes/day Smoking/Tobacco Use Status: Former Tobacco Use how long ago did patient quit smoking: QUIT 1988 alcohol intake: current alcohol intake frequency: a few times a month details: weekends only substance use type: does not use claude/zoroastrian: Sikh special claude needs: No Surgical History H/O arthroscopy of left knee (Resolved) History of lumbar spinal fusion (Resolved) Appendectomy Colonoscopy - IV Sedation (07/21/16) Colonoscopy - MAC Vasectomy Social History household members: spouse housing: house current occupational status: employed current occupation: [employer] pets and animals: Yes pets and animals: cat(s) frequency: 1-2 times per week duration: 15-30 minutes/day Smoking/Tobacco Use Status: Former Tobacco Use how long ago did patient quit smoking: QUIT 1988 alcohol intake: current alcohol intake frequency: a few times a month details: weekends only substance use type: does not use claude/zoroastrian: Sikh special claude needs: No
--- NOTE | 2018-04-24 14:28 | PDOC.CMDIS ---
- If Service Date Differs Date of service: 04/24/18 Time of Service: 14:28 LACE Index Scoring Tool - Questions: Length of Stay (in days): 3 Acuity (Admit via E.D.?): No Care Management Discharge Reason for Hospitalization: OA (R) Hip. Discharge Plan: Leonard will discharge home when medically ready per MD. Anticipate patient will discharge with outpatient PT services and follow up with surgical services. Leonard will transport via private vehicle with his , Lanny. Patient/Family Education Needs: Discharge education, any limitations, and follow up plan of care. Ask Me Three discussion. Services Needed at Discharge: Physical Therapy (Michael Saeed; outpatient PT. )
--- NOTE | 2018-04-24 15:21 | PDOC.HHF2F ---
1. Encounter Date and Reason I certify that MAURO CALVO was seen by Abiel Vaz on 04/24/18 and that I had a [id number] encounter with this patient that meets the physician face to face encounter requirements. 2. Clinical Findings Supporting Skilled Need and Homebound Status I certify that home health services are medically necessary, include either intermittent longterm and/or physical/speech therapy, and that this patient is homebound in that absences from the home require considerable and taxing effort and are infrequent or of short duration, or are attributable to the need to receive medical care. [X] (a) Attached documentation from encounter provides clinical findings supporting skilled need and homebound status (including what assistance patient requires to leave the home). The encounter with the patient was in whole, or in part, for the following medical condition, which is the primary reason for home health care: OA (R) HIP Usp: Physical Therapy:Rehab R total hip. Total hip precautions for 6 weeks post-op. Speech Therapy: Homebound:Had total hip replacement on 04/22/18. Can't drive. Has no ride to get to PT. Ambulation with walker is limited. 3. Certification and Authentication I certify that I composed the above information based on my clinical judgement relating to this patient's medical condition and, if applicable, clinical findings communicated to me by the NPP or inpatient physician who performed the Home Health Referral. All further orders will be obtained through (Community Based Physician - PCP)
--- NOTE | 2018-04-24 15:25 | HHF2F_ITS ---
1. Encounter Date and Reason I certify that MAURO CALVO was seen by Abiel Vaz on 04/24/18 and that I had a [id number] encounter with this patient that meets the physician face to face encounter requirements. 2. Clinical Findings Supporting Skilled Need and Homebound Status I certify that home health services are medically necessary, include either intermittent alf and/or physical/speech therapy, and that this patient is homebound in that absences from the home require considerable and taxing effort and are infrequent or of short duration, or are attributable to the need to receive medical care. [X] (a) Attached documentation from encounter provides clinical findings supporting skilled need and homebound status (including what assistance patient requires to leave the home). The encounter with the patient was in whole, or in part, for the following medical condition, which is the primary reason for home health care: OA (R) HIP Jail: Physical Therapy:Rehab R total hip. Total hip precautions for 6 weeks post-op. Speech Therapy: Homebound:Had total hip replacement on 04/22/18. Can't drive. Has no ride to get to PT. Ambulation with walker is limited. 3. Certification and Authentication I certify that I composed the above information based on my clinical judgement relating to this patient's medical condition and, if applicable, clinical findings communicated to me by the NPP or inpatient physician who performed the Home Health Referral. All further orders will be obtained through (Community Based Physician - PCP)
--- NOTE | 2018-04-24 15:50 | PT.INTREAT ---
Date of service: 04/24/18 Time of Service: 15:50 PT Notes Inpatient Physical Therapy Treatment Note Date: 04/24/18 PRECAUTIONS:WBAT on R OBJECTIVE: PAIN: NO c/o pain BED MOBILITY/TRANSFERS Sit-stand: S Stand-sit: S GAIT Assistive Device: FWW Weight bearing: WBAT on R Assist: S Distance: 300' Deviation: Step-through gait pattern ASSESSMENT: Patient tolerated session well without c/o pain. He tolerated a progression in his gait distance with FWW support and a step-through gait pattern. PLAN: As per primary PT TREATMENT CODE/TIME: 15 minutes; TA
--- NOTE | 2018-04-25 08:35 | PT.INDS ---
Date of service: 04/25/18 Time of Service: 08:35 PT Notes Inpatient Physical Therapy Discharge Summary Date: 04/25/18 Dates of Service: 04/23/18-04/25/18 SUBJECTIVE:NT OBJECTIVE: 04/23/18-04/25/18 Bed Mobility/Transfers: Supine to sit : [id number] Sit-stand: supervision Stand-sit: supervision Bed-chair: SBA with FWW Gait: supervision with FWW 300ft WBAT R LE STAIRS up/down 5 steps with railings supervision Precautions: Patient issued handouts and instructed in 3/3 posterior total hip precautions for right lower extremity, patient verbalized understanding. Balance: Static Sitting: Normal Dynamic Sitting: Normal Static Standing: Fair Dynamic Standing: Fair Assessment: Patient is a 67-year-old male status post right total hip arthroplasty by Dr. Vaz 04/22/2018 in setting of lumbar spinal fusion, arthroscopy left knee. Patient was seen for 4 PT visits. Progressed from SBA standing transfers to supervision, from SBA gait with FWW 25ftx2 to supervision gait with FWW 300ft, able to ascend/descend 5 steps with railings supervision. Pt is discharged to home setting. Goals: Goals X1 week 1. Supine-Sit: Independent 2. Sit-Supine: Independent 3. Sit-Stand: Supervision with FWW 4. Stand-Sit: Supervision 5. Bed-Chair: Supervision with FWW 6. Chair-Bed: Supervision with FWW 7. Gait: Supervision with FWW 150 feet, WBAT RLE 8. Stairs: Up/down 3 steps with railing, WBAT RLE, SBA 9. Independent with home exercise program DENIA Pt met goals # 2, 3, 4, 7, 8, 9 DISCHARGE RECOMMENDATIONS: Home with raised toilet seat recommended Lydia Savage PT
== END 2018-04-24 15:30 | disposition home or self-care (01) | DRG 470 ==
LOC: PDS 10:44 → MS 18:09
PROVIDERS: Student in an Organized Health Care Education/Training Program; Admitting Provider Orthopaedic Surgery; PCP Emergency Medicine; Visit Provider Orthopaedic Surgery
PROC: 0SR904A Replacement of Right Hip Joint with Ceramic on Polyethylene Synthetic Substitute, Uncemented, Open Approach (ICD-10-PCS; CPT 27130; principal; 2018-04-22 10:00)
DX: M16.11 Unilateral primary osteoarthritis, right hip (principal); Z96.641 Presence of right artificial hip joint
CPT/HCPCS: 27130; 36415; 85027; 97110; 97162; 97165; 97530; 97535; J1650; NC; 72170; 85014; 85018; J0690; J1885; J3010; L1686

== ENCOUNTER 2018-05-02 10:02 | Outpatient (CLI) | payer OTHER, SELFPAY ==
--- NOTE | 2018-05-02 09:57 | DI.RAD_ITS ---
SYMPTOM/DIAGNOSIS: RT DENIA RIGHT HIP AND PELVIS: The patient is status post THR right. The right hip prosthesis is noted and in excellent position. Surrounding bone is intact. Incidental note is made of severe DJD involving the left hip.
== END 2018-05-02 10:22 ==
PROVIDERS: PCP Emergency Medicine; Visit Provider Physician Assistant
DX: Z96.641 Presence of right artificial hip joint (principal); Z47.1 Aftercare following joint replacement surgery; M16.12 Unilateral primary osteoarthritis, left hip
CPT/HCPCS: 73502

== ENCOUNTER 2018-05-09 12:56 | Outpatient (CLI) | payer OTHER, SELFPAY ==
[2018-05-09 13:27] LABS: Abs Immature Grans 0.03 k/cumm (0.0-0.09); Absolute Basophil Count 0.07 k/cumm (0.0-0.2); Absolute Eosinophil Count 0.28 k/cumm (0.0-0.7); Absolute Lymphocyte Count 1.74 k/cumm (1.2-3.4); Absolute Monocyte Count 0.59 k/cumm (0.11-0.7); Absolute Neutrophil Count 3.81 k/cumm (1.2-6.7); Basophils % 1.1; Eosinophils % 4.3; HCT 37.6 % (40.0-50.0); HGB 12.5 g/dL (13.5-17.5); Immature Grans % 0.5; Lymphocytes % 26.7; Mean Corp. HGB Concentration 33.2 g/dL (32.0-36.0); Mean Corpuscular Hemoglobin 30.6 pg (27.0-33.0); Mean Corpuscular Volume 92.2 fL (80-95); Mean Platelet Volume 9.8 fL (8.0-11.0); Neutrophils % 58.4; Platelet Count 390 x1000/uL (130-400); RBC 4.08 m/cumm (4.50-6.00); RBC Distribution Width 13.1 % (11.8-14.1); White Blood Cell Count 6.52 k/cumm (4.4-10.8)
[2018-05-09 14:18] LABS: ESR 39 MM/HR (1-20)
[2018-05-09 14:23] LABS: C-Reactive Protein 1.31 mg/dL (0.0-0.3)
== END 2018-05-09 13:16 ==
PROVIDERS: Physician Assistant; PCP Emergency Medicine; Visit Provider Orthopaedic Surgery
DX: M16.11 Unilateral primary osteoarthritis, right hip (principal); Z96.641 Presence of right artificial hip joint; Z47.1 Aftercare following joint replacement surgery
CPT/HCPCS: 36415; 85652; 85025; 86140

== ENCOUNTER 2018-05-11 22:54 | Emergency (ER) | payer OTHER, SELFPAY ==
[2018-05-11 23:06] VITALS: BP 141/72; PULSE 71; RESP 16; TEMP 36.6; O2SAT 97
--- NOTE | 2018-05-11 23:10 | W.ED.GENAD ---
Discharge Plan Disposition Patient Disposition: HOME Condition: Stable Discharge Details Chief Complaint: Orthopedic Clinical Impression: Drainage from wound Primary Care Provider: Jose Donnelly ED Provider: Aaron Juarez Home Meds and New Rx's Prescriptions: No Action sertraline 50 mg tablet 50 mg PO DAILY Qty: 90 RF: 3 Zyrtec 10 MG capsule 10 mg PO DAILY RF: 0 tamsulosin [Flomax] 0.4 MG capsule 0.4 mg PO HS RF: 0 hydrocodone-acetaminophen 5-325 mg tablet 1 tab PO Q6H PRN (Reason: pain) Qty: 20 RF: 0 ibuprofen 800 mg tablet 800 mg PO TID Qty: 60 RF: 0 ferrous sulfate 325 mg (65 mg iron) tablet,delayed release (DR/EC) 325 mg PO DAILY Qty: 30 RF: 0 Discharge Instructions Additional Instructions: Try to keep pressure on the wound to help slow the drainage if you have any questions or concerns you can call the plant protection superintendent orthopedist or return here. Medical Decision Making 67 yo male underwent right hip replaceemt on 04/[address] Vaz without complications per pt, who comes in with increased drainage from the wound. Denies pain or fevers. Had increased drainage this past week and tonight has been more so so came here. He has a well healed incision with a 0.5cm opening of the very medial wound that is having serosanguinous drainage, no purulence or pain with palpaiton or warm to touch. He has full rom of the hip without pain so doubt septic joint or infection at this time, will discuss with plant protection superintendent orthopedist Dr. Sandi Nunes suggest trying to place dressing with some pressure on it and if this fails may require wound vac. The patient is comfortable with doing this at home and will return here or call Dr. nunes if he has any questions. Dr. Nunes agreed to not close the wound given this could increase the risk of infection Differential Diagnosis serosanguinous drainage, abscess HPI General Mode of arrival: ambulatory. Date/Time Provider Initiated Documentation: 05/11/18 23:05. Limitations to Documentation: no limitations. Information obtained by: patient. History of Present Illness 67 year old M presents to the emergency department with the chief complaint of drainage from right hip wound, Patient reports no radiation. Patient started experiencing this day(s) (3) and it has been constant. No relieving factors improve symptom(s), No exacerbating factors reported . Patient notes no other symptoms.. Patient did receive the following treatments prior to arrival, none Related Data Home Medications Medication Instructions Recorded Confirmed Zyrtec 10 mg PO DAILY 03/18/15 05/09/18 sertraline 50 mg tablet 50 mg PO DAILY #90 tab 02/12/18 05/09/18 tamsulosin [Flomax] 0.4 mg PO HS 04/15/18 05/09/18 ferrous sulfate 325 mg PO DAILY #30 tab 04/24/18 05/09/18 hydrocodone-acetaminophen 1 tab PO Q6H PRN #20 tab 04/24/18 05/09/18 ibuprofen 800 mg PO TID #60 tab 04/24/18 05/09/18 Previous Rx's Medication Instructions Recorded sertraline 50 mg tablet 50 mg PO DAILY #90 tab 02/12/18 ferrous sulfate 325 mg PO DAILY #30 tab 04/24/18 hydrocodone-acetaminophen 1 tab PO Q6H PRN #20 tab 04/24/18 ibuprofen 800 mg PO TID #60 tab 04/24/18 Allergies Allergy/AdvReac Type Severity Reaction Status Date / Time atorvastatin calcium AdvReac Unknown Verified 05/11/18 23:13 [From Lipitor] smoke AdvReac Mild uri Uncoded 05/11/18 23:13 symptoms Review of Systems Review of Systems All systems reviewed & are unremarkable except as noted in HPI and below Constitutional Denies chills, Denies fever(s) and Denies weakness Eyes Denies loss of vision ENT Denies change in voice Cardiovascular Denies chest pain and Denies dyspnea Respiratory Denies dyspnea Gastrointestinal Denies abdominal pain, Denies nausea and Denies vomiting Genitourinary Denies dysuria Musculoskeletal Denies joint swelling Integumentary/Breasts Denies rash Neurologic Denies loss of vision and Denies weakness Psychiatric Denies depression [facility] Surgical History S/P total hip arthroplasty (Acute) H/O arthroscopy of left knee (Resolved) History of lumbar spinal fusion (Resolved) Appendectomy Colonoscopy - IV Sedation (07/21/16) Colonoscopy - MAC Vasectomy Family History Mother No problems noted. Father Essential hypertension Sister No problems noted. Brother No problems noted. Grandfather No problems noted. Grandfather No problems noted. Grandmother No problems noted. Grandmother Neoplasm Social History household members: spouse housing: house current occupational status: employed current occupation: [employer] pets and animals: Yes pets and animals: cat(s) frequency: 1-2 times per week duration: 15-30 minutes/day Smoking/Tobacco Use Status: Former Tobacco Use how long ago did patient quit smoking: QUIT 1988 alcohol intake: current alcohol intake frequency: a few times a month details: weekends only substance use type: does not use claude/caodaism: Roman Catholic special claude needs: No Exam Const General: no acute distress Orientation: alert HENMT Head: normal to inspection Ears: external ears normal General nose exam: external nose normal Mouth: moist mucous membranes Eyes General: appearance normal, both eyes and all related structures Neck Neck: normal visual inspection Resp Effort & Inspection: normal respiratory effort and able to speak in complete sentences Cardio Rate: regular rate Skin General skin exam: no rashes or lesions noted Neuro General: alert and oriented x3 Extrem General: normal to inspection Psych Mental Status: mental status grossly normal
[2018-05-11 23:56] VITALS: BP 138/76; PULSE 70; RESP 16; TEMP 36.6; O2SAT 97
== END 2018-05-12 00:04 | disposition home or self-care (01) ==
LOC: ER 23:31
PROVIDERS: Emergency Provider Emergency Medicine; PCP Emergency Medicine
DX: Z96.641 Presence of right artificial hip joint (principal); T81.89XA Other complications of procedures, not elsewhere classified, initial encounter
CPT/HCPCS: 99281; 99282

== ENCOUNTER 2018-05-12 09:30 | Observation (INO) | payer OTHER, SELFPAY ==
[2018-05-12 11:08] VITALS: BP 94/63; PULSE 93; RESP 20; TEMP 36.7; O2SAT 95
[2018-05-12] MEDS: Lactated Ringers 1,000 ML 80 ML IV ×2 (11:42→15:38)
[2018-05-12] MEDS: Normal Saline Flush 10 ML SYR (11:43)
--- NOTE | 2018-05-12 12:35 | W.PM.HP.N ---
Date of service: 05/12/18 Time of Service: 12:35 Assessment and Plan (1) Wound drainage: Start date: 05/08/18 Current visit: Yes Status: Acute Status post right hip replacement on April 23, 2018. Leonard has been doing well. He has had increase in activity without pain. However, starting on this past Sunday he had a significant increase in drainage from an area of the superior incision. This has been treated twice now, once in clinic and once in the emergency department, and it continues to have serosanguineous drainage. Given the duration of the drainage and its timeframe away from the surgery, I do think we should move more aggressively. He has no signs of infection at this time which is encouraging. He is rather frustrated by the drainage but is encouraged by the overall progress of his activity and his a significant decrease in pain. Therefore, I recommended an irrigation and debridement. He likely has a seroma which is draining from this superior area of his wound. We will opened up a portion of the incision and investigate soft tissues. If there is any sign or suggestion that the deep tissues are violated that we will open up the deep layer although I do not expect this to be the case. The procedure would involve an aggressive irrigation and debridement. Assuming all the tissue appears healthy, I would then close the wound and place an incisional wound VAC. I discussed the risk of the procedure to include bleeding, infection, pain, stiffness, continued drainage, need for repeat procedures. Despite these risks, he elects to proceed. History of Present Illness Chief Complaint: R Hip Wound Drainage Narrative: Leonard is a 67-year-old who underwent a hip replacement on April 23, [address] Vaz. He successfully recovered from the hip replacement and was ambulating without assistive device within a few days. He denies having any significant pain and is not taking pain meds since the second postoperative day. However, over the last 4 or 5 days he has had increasing drainage from a very small opening of his wound superiorly. He was seen in the office by Srikanth Espinosa PA-C, on May 09. At that time there was no erythema nor signs of infection. His range of motion of the hip was benign and not irritable. His ESR was 37 the C-reactive protein was 1.3, mildly elevated and in the expected range at 2.5 weeks out from surgery. This dressing which was placed by Srikanth on was saturated on Sunday. It was replaced twice at home but continued to be saturated throughout the day. The fluid was described as being a blood-tinged clear fluid. Again, no fevers and no chills. No increase in pain. On May 11, Leonard presented back to the emergency department for continued drainage from the wound. It was evaluated in the emergency department. I was called and at that time we tried another round of pressure dressings with multiple ABDs and Bud wrap. Unfortunately, even within a few hours after leaving the emergency department, this was completely saturated. Leonard called this morning to discuss treatment options. Given the duration of drainage, now greater than 2 weeks out from initial surgery, the amount of drainage, and the multiple attempts to control the drainage, I do think it makes sense to proceed with irrigation and debridement and incisional wound VAC placement. He denies any chest pain or shortness of breath. No cough or cold. No nausea or vomiting. No calf pain. Review of Systems Review of Systems All systems reviewed & are unremarkable except as noted in HPI and below PFSH Surgical History S/P total hip arthroplasty (Acute) H/O arthroscopy of left knee (Resolved) History of lumbar spinal fusion (Resolved) Appendectomy Colonoscopy - IV Sedation (07/21/16) Colonoscopy - MAC Vasectomy Family History Mother No problems noted. Father Essential hypertension Sister No problems noted. Brother No problems noted. Grandfather No problems noted. Grandfather No problems noted. Grandmother No problems noted. 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 pets and animals: Yes pets and animals: cat(s) frequency: 1-2 times per week duration: 15-30 minutes/day Smoking/Tobacco Use Status: Former Tobacco Use how long ago did patient quit smoking: QUIT 1988 alcohol intake: current alcohol intake frequency: a few times a month details: weekends only substance use type: does not use claude/sabianism: Holiness special claude needs: No Meds Home Medications Medication Instructions Recorded Confirmed Type Zyrtec 10 mg PO DAILY 03/18/15 05/12/18 History sertraline 50 mg tablet 50 mg PO DAILY #90 tab 02/12/18 05/12/18 Rx tamsulosin [Flomax] 0.4 mg PO HS 04/15/18 05/12/18 History ferrous sulfate 325 mg PO DAILY #30 tab 04/24/18 05/12/18 Rx hydrocodone-acetaminophen 1 tab PO Q6H PRN #20 tab 04/24/18 05/12/18 Rx ibuprofen 800 mg PO TID #60 tab 04/24/18 05/12/18 Rx Allergies Allergy/AdvReac Type Severity Reaction Status Date / Time atorvastatin calcium AdvReac Unknown Verified 05/11/18 23:13 [From Lipitor] smoke AdvReac Mild uri Uncoded 05/11/18 23:13 symptoms Exam Narrative Exam Narrative: Evaluation of the right hip shows a well approximated incision. There is no erythema. There is one area in the midportion which appears to have some intact eschar without any diastases. In the superior 2 cm there is an area about 1 cm in length which does have a small amount of serosanguineous fluid at its aperture. I am unable to express significant amount of fluid but you can see that this portion of the wound is not healed superficially. There is no palpable mass. No area of fluctuance. No pain with palpation. He tolerates flexion to 90 degrees, internal rotation to 10 degrees and external rotation to 35 degrees. There is just a slight amount of pain with forcing internal rotation but in general no pain with range of motion. He is able to actively move the hip and actively straight leg raise again without discomfort. Sensation intact light touch over the deep and superficial peroneal nerves. Const General: cooperative, healthy appearing, comfortable and no acute distress Nutritional Appearance: well nourished Orientation: alert, awake and oriented x3 Resp Auscultation: clear to auscultation bilaterally Cardio Rate: regular rate Results Last Vital Signs Temp 36.7 C 05/12/18 11:08 Pulse 93 H 05/12/18 11:08 Resp 20 05/12/18 11:08 BP 94/63 L 05/12/18 11:08 Pulse Ox 95 05/12/18 11:08
[2018-05-12] MEDS: Bupivacaine 0.25% Pres-Free 30 ML VIAL (14:34)
[2018-05-12 15:25] VITALS: BP 115/73; PULSE 74; RESP 20; TEMP 36.5; O2SAT 96
[2018-05-12] MEDS: Acetaminophen 500 MG TAB 1000 MG PO ×2 (15:46→19:38)
[2018-05-12 15:47] VITALS: BP 108/72; PULSE 67; RESP 18; TEMP 36; O2SAT 96
--- NOTE | 2018-05-12 17:45 | PDOC.CMIN ---
- If Service Date Differs Date of service: 05/12/18 Time of Service: 17:45 Care Management Initial Assess REASON FOR HOSPITALIZATION:: Draining of hip surgical wound. PAST MEDICAL HISTORY/PAST SURGICAL HISTORY:: Degenerative joint disease (right/left hip), overweight, onychomycosis, microscopic hematuria, lactose intolerance, hyperlipidemia, hx. tobacco use, osteoarthrosis (bilateral feet), anxiety, BPH, atypical nevi, anxiety disorder. Surgical hx: OA (R) hip, appendectomy, colonoscopy, vasectomy, arthroscopy left knee, lumbar spinal fusion. PREVIOUS FUNCTIONAL STATUS/SOCIAL/FAMILY SUPPORTS:: Leonard resides in [facility] with his , Lanny. He has three adult children and two grandchildren, all of whom reside in [place] and are reportedly supportive. 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 He is independent with his ADLs and transportation and has all necessary ambulatory equipment. Leonard had hip surgery with Dr. Vaz on 04/22/18; in OR for draining with Dr. Junior on 05/12/18. CURRENT FUNCTIONAL STATUS:: Leonard is sitting in bed when visits this morning. He is engaged in conversation, makes good eye contact, and is talkative. Leonard reports that he was doing really well following his surgery until the recent issues with drainage developed. He's wondering if he might have been doing too well/overdone it, resulting in the draining. assures him it's not likely. He denies pain at this point in time and is looking forward to returning home later today. Leonard's wound vac is in place at this time. He has no reservations about returning home. ADVANCE DIRECTIVES:: None on file at [facility]. Has patient been provided with information about the portal?: Yes Did the patient sign up for the portal?: No CODE STATUS:: Full Code INSURANCE COVERAGE / FINANCIAL ISSUES:: Medicare, [employer] [facility]. CURRENT HOME/COMMUNITY SERVICES/EQUIPMENT:: Home PT with [facility] (patient had 3 visits prior to this admission). Patient owns a FWW and cane. PRIMARY CARE PHYSICIAN:: Jose Donnelly MD. POTENTIAL DISCHARGE NEEDS:: Home health nursing for wound vac management, follow up appointment with surgical services. Outpatient PT at [facility]. PATIENT/FAMILY EDUCATION NEEDS:: Discharge education, any limitations, and follow up plan of care. Ask Me Three Discussion. ANTICIPATED BARRIERS TO DISCHARGE:: No anticipated barriers to discharge. TRANSPORTATION:: Leonard will transport home via private vehicle with his , Lanny. PLAN:: Leonard will discharge when medically ready per MD. Anticipate patient will discharge with a wound vac, new nursing services, and a follow up appointment with surgical services. will continue to offer support to patient, family, and care team regarding discharge planning and disposition. Readmission - Within the Past 30 Days Yes or No: Y - Date of First Admission Date of 1st Admission: 04/22/18 - Date of this Admission Date of Admission: 05/12/18 This admission was: Direct Admit - Office Visit Since 1st Admission Have you seen your PCP in the office since discharge?: No - Speicalist Appointments Have you seen any other specialist since your 1st Admission?: Yes Date you saw the Specialist: 2x since discharge for drainage. - I. Interview patient and/or Family Difficulty reaching your doctor or getting an office appt?: No Have you had trouble purchasing/ or taking medication?: No Have you had trouble with getting meals at home?: No Did you feel ready for discharge when you left the last time: Yes Were services received that you thought were set up on disch: Yes What services were received?: Out patient PT. Did you call your physician beore you came to the ED?: Yes (Spoke with surgical services. ) Did your physician tell you to come in?: Yes - ED visits How many ED visits in the past 12 months: 1
--- NOTE | 2018-05-12 17:54 | INITIAL_ITS ---
- If Service Date Differs Date of service: 05/12/18 Time of Service: 17:45 Care Management Initial Assess REASON FOR HOSPITALIZATION:: Draining of hip surgical wound. PAST MEDICAL HISTORY/PAST SURGICAL HISTORY:: Degenerative joint disease (right/left hip), overweight, onychomycosis, microscopic hematuria, lactose intolerance, hyperlipidemia, hx. tobacco use, osteoarthrosis (bilateral feet), anxiety, BPH, atypical nevi, anxiety disorder. Surgical hx: OA (R) hip, appendectomy, colonoscopy, vasectomy, arthroscopy left knee, lumbar spinal fusion. PREVIOUS FUNCTIONAL STATUS/SOCIAL/FAMILY SUPPORTS:: Leonard resides in [facility] with his , Lanny. He has three adult children and two grandchildren, all of whom reside in [place] and are reportedly supportive. 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 He is independent with his ADLs and transportation and has all necessary ambulatory equipment. Leonard had hip surgery with Dr. Vaz on 04/22/18; in OR for draining with Dr. Junior on 05/12/18. CURRENT FUNCTIONAL STATUS:: Leonard is sitting in bed when visits this morning. He is engaged in conversation, makes good eye contact, and is talkative. Leonard reports that he was doing really well following his surgery until the recent issues with drainage developed. He's wondering if he might have been doing too well/overdone it, resulting in the draining. assures him it's not likely. He denies pain at this point in time and is looking forward to returning home later today. Leonard's wound vac is in place at this time. He has no reservations about returning home. ADVANCE DIRECTIVES:: None on file at [facility]. Has patient been provided with information about the portal?: Yes Did the patient sign up for the portal?: No CODE STATUS:: Full Code INSURANCE COVERAGE / FINANCIAL ISSUES:: Medicare, [employer] [facility] [place]. CURRENT HOME/COMMUNITY SERVICES/EQUIPMENT:: Home PT with [facility] (patient had 3 visits prior to this admission). Patient owns a FWW and cane. PRIMARY CARE PHYSICIAN:: Jose Donnelly MD. POTENTIAL DISCHARGE NEEDS:: Home health nursing for wound vac management, follow up appointment with surgical services. Outpatient PT at [facility]. PATIENT/FAMILY EDUCATION NEEDS:: Discharge education, any limitations, and follow up plan of care. Ask Me Three Discussion. ANTICIPATED BARRIERS TO DISCHARGE:: No anticipated barriers to discharge. TRANSPORTATION:: Leonard will transport home via private vehicle with his , Lanny. PLAN:: Leonard will discharge when medically ready per MD. Anticipate patient will discharge with a wound vac, new nursing services, and a follow up appointment with surgical services. will continue to offer support to patient, family, and care team regarding discharge planning and disposition. Readmission - Within the Past 30 Days Yes or No: Y - Date of First Admission Date of 1st Admission: 04/22/18 - Date of this Admission Date of Admission: 05/12/18 This admission was: Direct Admit - Office Visit Since 1st Admission Have you seen your PCP in the office since discharge?: No - Speicalist Appointments Have you seen any other specialist since your 1st Admission?: Yes Date you saw the Specialist: 2x since discharge for drainage. - I. Interview patient and/or Family Difficulty reaching your doctor or getting an office appt?: No Have you had trouble purchasing/ or taking medication?: No Have you had trouble with getting meals at home?: No Did you feel ready for discharge when you left the last time: Yes Were services received that you thought were set up on disch: Yes What services were received?: Out patient PT. Did you call your physician beore you came to the ED?: Yes (Spoke with surgical services. ) Did your physician tell you to come in?: Yes - ED visits How many ED visits in the past 12 months: 1
[2018-05-12] MEDS: Ibuprofen 800 MG TAB PO (19:38)
[2018-05-12] MEDS: Aspirin E.C. 81 MG TABEC PO (19:38)
[2018-05-12 19:45] VITALS: BP 114/75; PULSE 80; RESP 15; TEMP 36.8; O2SAT 97
[2018-05-12] MEDS: Tamsulosin 0.4 MG CAPCR PO (21:23)
[2018-05-12] MEDS: HYDROcodone 5/Acetaminophen 325 TAB PO (22:45)
[2018-05-13 00:13] VITALS: BP 123/69; PULSE 80; RESP 18; TEMP 36.4; O2SAT 96
[2018-05-13] MEDS: Lactated Ringers 1,000 ML 80 ML IV (03:35)
[2018-05-13 04:27] VITALS: BP 120/62; PULSE 78; RESP 16; TEMP 36.7; O2SAT 98
--- NOTE | 2018-05-13 07:10 | ROE_ITS ---
REPORT OF OPERATIVE PROCEDURE DATE OF SURGERY May 12, 2018 PREOPERATIVE DIAGNOSIS Draining right hip wound. POSTOPERATIVE DIAGNOSES Right hip wound seroma with internal dehiscence of IT band repair. SURGERY Irrigation and debridement of right hip wound, including muscle, bone and joint. Application of wound VAC device, Prevena. SURGEON Familia Junior M.D. TECHNOLOGY ASSISTANT Srikanth Espinosa PA-C. ANESTHESIA Spinal. FINDINGS There was a 1-cm area of the wound superiorly, which was notably draining. There was no surrounding f indings concerning for infection. The wound easily communicated down through a defect in the IT band and gluteus repair down into the joint. The IT band/gluteus repair was dehisced from the level of the vastus lateralis ridge all the way through the gluteus musculature. There was no purulent material f ound. There was no necrotic tissue. SPECIMENS Deep cultures were taken from the seroma and sent to the lab for culture. COMPLICATIONS None. ESTIMATED BLOOD LOSS 20 cc DISPOSITION The patient was awakened from anesthesia and taken to the PACU in stable condition. INDICATIONS FOR PROCEDURE Leonard is a 67-year-old who underwent a right hip replacement on April 23, by Dr. Vaz. He did wel l with activity. He was very active and was very happy with his results. However, about four days ago , he started having some drainage from the superior aspect of the wound, where he noted there was a s mall area, which had not completely healed. He continued to have bouts of copious serosanguineous dis charge. He was seen once in the clinic and once in the Emergency Department. Due to continued drainag e, and the time interval from surgery to now, I recommended irrigation and debridement. I reviewed th e risks of the procedure to include bleeding, infection, pain, stiffness, continued draining, need fo r repeat procedures, blood clot. Despite these risks, he elected to proceed. PROCEDURE DESCRIPTION Leonard is a 67-year-old who was greeted up in his hospital bed. The correct side was identified and mar ked. The consent was reviewed with the patient and signed. The history and physical was updated. He w as taken back to the Operating Room. He was placed in a seated position for a spinal anesthetic. Once the spinal anesthetic was appropriately administered, he was then positioned in the left lateral dec ubitus position on a large beanbag. An axillary roll was placed. All bony prominences were padded inc luding the fibular heads of the down leg and the elbows. He was secured with the beanbag onto the tab le. Once in position, the left leg was prepped with ChloraPrep and draped in a standard fashion. Prop hylactic antibiotics were held until the first culture was obtained. A time-out was performed for saf e surgery. The previous incision site was marked. The superior 15 or 16 centimeters was marked for incision. I e llipsed out both the area of the sinus tract and the other skin from the incision. This was taking ou t a full thickness section. Immediately where the wound was draining, I was able to fall into a defec t between the soft tissue going down through the gluteus fascia and then into the joint itself to the posterior aspect of the greater trochanter. I then bluntly dissected this open to expose the deep ti ssues. There was a complete tear of the IT band and gluteus repair. There was a seroma sitting at the base of this area. This was evacuated, but it was not under any pressure and it was mostly probably previously decompressed. This fluid was sent to the lab for anaerobic and aerobic cultures. The IT ba nd and gluteus fascia was dehisced from the level of the vastus lateralis ridge all the way up into t he gluteus musculature. The tissue actually appeared to be slightly adherent to the overlying scar ti ssue. The posterior hip capsule was not attached to the posterior greater trochanter. It was partial ly excised during the surgery and it was definitely scared and retracting, it was unable to be repair ed in any way. There was no gross purulence. There was no necrotic tissue. There were minimal amounts of clot seen. I then irrigated the wound with 6 liters of normal saline. Prophylactic antibiotics we re given at this time. The wound was also debrided with a rongeur with a curette to remove any stagnant tissue and promote b leeding throughout. Once this was performed, the wound appeared healthy. There were no signs of gross purulence. I was unable to close the external rotators, but I did place 1 gram of vancomycin powder within the wound itself. The IT band and gluteus fascia was reapproximated with a #-1 Antibiotic laden PDS suture. This was re peated for the entire course of the dehisced IT band gluteus fascia. It reapproximated the fascia wel l without any significant gapping. The superficial layers were once again irrigated. The deeper tissu es were closed with #0 and #2-0 PDS. The wound was anesthetized 0.25% bupivacaine. The skin was close d with a #3-0 Prolene. The skin was cleaned and dried and a Prevena wound VAC was applied. This was a pplied directly onto the incision of the wound VAC. It was started and it was noted to have excellent suction. At the end of the case, all counts were correct. The fluid culture was sent to the lab for aerobic an d anaerobic culture. The patient was then transferred back over to the hospital stretcher in the supi ne position, doing well, and without any notable complications. He was taken back to the Hospital [facility] or.
[2018-05-13 07:35] VITALS: BP 86/61; PULSE 76; RESP 18; TEMP 36.3; O2SAT 98
[2018-05-13] MEDS: Ibuprofen 800 MG TAB PO (07:45)
[2018-05-13] MEDS: Sertraline 50 MG TAB PO (07:45)
[2018-05-13] MEDS: Aspirin E.C. 81 MG TABEC PO (07:45)
[2018-05-13] MEDS: Acetaminophen 500 MG TAB 1000 MG PO (07:45)
--- NOTE | 2018-05-13 09:51 | W.PM.PROGNOT ---
Date of Service Date of service: 05/13/18 Time of Service: 09:52 Assessment and Plan (1) Wound drainage: Current visit: No Status: Acute Leonard is status post irrigation and debridement of the right hip seroma with closure of internal dehiscence and application of an incisional wound VAC. Unfortunately, the portable incisional wound VAC canister is now full and we are awaiting a larger portable wound VAC device. Once this arrives, I will place it and he will be able to discharge home. He did complete 3 doses of postoperative antibiotics. He will follow-up on with Dr. Vaz. Subjective Interval history since last seen: Leonard reports no pain. He feels no fevers no chills. He has no chest pain or shortness of breath. Unfortunately, last night around 5:00 in the morning, the suction canister became full. Therefore, he has had no suction on the wound and there is been a notable filling of the sponge and dressing. The output is sanguinous. Exam Narrative Exam Narrative: No acute distress. Alert and oriented x3. Evaluation of the right hip shows a sealed wound VAC dressing. There is significant amount of sanguinous material in and around the sponge. However, it has not broken the seal that I can tell. I placed the suction to low continuous wall suction and this resealed the sponge with appropriate vacuum and removal of excess sanguinous discharge. There are no signs of erythema. No significant tenderness to palpation. Hip range of motion passively causes no pain. Objective Objective Clinical Data: Vital Signs Temperature 36.3 C L 05/13/18 07:35 Temperature Source Tympanic 05/13/18 07:35 Pulse 76 05/13/18 07:35 Pulse Rhythm Regular 05/13/18 07:45 Respiratory Rate 18 05/13/18 07:35 Respiratory Effort Non-Labored 05/13/18 07:45 Respiratory Depth Normal 05/13/18 07:45 Respiratory Pattern Normal 05/13/18 07:45 Blood Pressure 86/61 L 05/13/18 07:35 Pulse Oximetry 98 05/13/18 07:35 Oxygen Delivery Method Room Air 05/13/18 07:35 Oxygen Flow Rate 0 05/13/18 07:35 Pain Level 2 05/13/18 07:45 Comment 05/12/18 15:25 Intake & Output 05/12/18 05/12/18 05/13/18 11:59 23:59 11:59 Intake Total 1175.333 / 7296.836 2967.334 / 1653.334 Output Total 300 / 300 Balance 875.333 / 773.576 8969.334 / 1653.334 Weight 97.5 kg Intake: IV 935.333 / 377.371 2740.334 / 1013.334 Oral 240 / 240 640 / 640 Output: Urine 300 / 300 Other: Urine Color Yellow Yellow Urine Appearance Clear Clear Comment pt removed the hat Stool Size Large Stool Characteristics Soft Formed Brown Voiding Methods Toilet Toilet
--- NOTE | 2018-05-13 10:09 | DSE_ITS ---
Date of service: 05/13/18 Time of Service: 10:09 DS: Diagnosis Discharge Diagnosis (1) Wound drainage: Status: Acute Discharge Plan Disposition Patient Disposition: HOME W/HOME HEALTH SERVICE Condition: Good Discharge Details Reason For Visit: DRAINING OF HIP SURGICAL WOUND Admit Date/Time: 05/12/18 09:30 Admit Provider: Familia Junior Attending Provider: Familia Junior Primary Care Provider: Jose Donnelly Hospital Course Hospital Course: Mauro tolerated the procedure well. There were no notable surgical, medical, or anesthetic complications. He had no increase in pain. He remained stable. The portable wound VAC device became fall and therefore a different incisional wound VAC was applied prior to discharge to home. Home Meds and New Rx's Prescriptions: Continued sertraline 50 mg tablet 50 mg PO DAILY Qty: 90 RF: 3 Zyrtec 10 MG capsule 10 mg PO DAILY RF: 0 tamsulosin [Flomax] 0.4 MG capsule 0.4 mg PO HS RF: 0 hydrocodone-acetaminophen 5-325 mg tablet 1 tab PO Q6H PRN (Reason: pain) Qty: 20 RF: 0 ibuprofen 800 mg tablet 800 mg PO TID Qty: 60 RF: 0 ferrous sulfate 325 mg (65 mg iron) tablet,delayed release (DR/EC) 325 mg PO DAILY Qty: 30 RF: 0 Discharge Instructions Instructions: Incision and Drainage (DC) Additional Instructions: Activity: You may ambulate as tolerated. It is recommend that you use an assistive device to support the soft tissues around the hip. You should take it easy. Dressings: Your inciisional wound vac will stay in place until your follow-up on with Dr. Vaz. Home Health Nurising may assist in troubleshooting the vac device and for changing canisters if necessary but the first change of the vac device will be performed in the clinic. Medications: Resume all of your home medications. No further antibiotics are required. Follow-up: Regularly scheduled visit with Dr. Vaz on 05/16/18. 1. Encounter Date and Reason I certify that MAURO CALVO was seen by Familia Junior MD on 05/13/18 and that I had a [id number] encounter with this patient that meets the physician face to face encounter requirements. 2. Clinical Findings Supporting Skilled Need and Homebound Status I certify that home health services are medically necessary, include either intermittent assisted and/or physical/speech therapy, and that this patient is homebound in that absences from the home require considerable and taxing effort and are infrequent or of short duration, or are attributable to the need to receive medical care. [X] (a) Attached documentation from encounter provides clinical findings supporting skilled need and homebound status (including what assistance patient requires to leave the home). The encounter with the patient was in whole, or in part, for the following medical condition, which is the primary reason for home health care: DRAINING OF HIP SURGICAL WOUND Shelter: Mauro requires assisted for complex wound management. He currently has vac-assisted wound therapy to the right hip wound. This is an incisional wound vac that will stay in place until his first post-op followup on 05/16/18. The seal should be checked and modified if necessary and the cannister should be changed if required. Further dressing instructions will be provided after 05/16/18 visit. Physical Therapy: Speech Therapy: Homebound: Mauro requires home-based therapy of his wound vac device 3. Certification and Authentication I certify that I composed the above information based on my clinical judgement relating to this patient's medical condition and, if applicable, clinical findings communicated to me by the NPP or inpatient physician who performed the Home Health Referral. All further orders will be obtained through Dr. Junior Stand Alone Forms: Nursing Discharge Form Referrals: Abiel Vaz MD [ [facility] STAFF PHYSICIAN] - 05/16/18 11:15 am Activity:: Activity as Tolerated Equipment/Supplies:: Wound VAC Diet:: As Tolerated Discharge Orders Discharge Orders: Discharge Order (Routine); Ordered 05/13/18 Ordered By: Familia Junior Discharge Data Discharge Comment: May d/c to home once new Wound VAC arrives DS: Data Vitals/I&O Vitals and I&O: Vital Signs Temperature 36.3 C L 05/13/18 07:35 Temperature Source Tympanic 05/13/18 07:35 Pulse 76 05/13/18 07:35 Pulse Rhythm Regular 05/13/18 07:45 Respiratory Rate 18 05/13/18 07:35 Respiratory Effort Non-Labored 05/13/18 07:45 Respiratory Depth Normal 05/13/18 07:45 Respiratory Pattern Normal 05/13/18 07:45 Blood Pressure 86/61 L 05/13/18 07:35 Pulse Oximetry 98 05/13/18 07:35 Oxygen Delivery Method Room Air 05/13/18 07:35 Oxygen Flow Rate 0 05/13/18 07:35 Pain Level 2 05/13/18 07:45 Comment 05/12/18 15:25 Intake & Output 05/12/18 05/12/18 05/13/18 11:59 23:59 11:59 Intake Total 1175.333 / 5090.729 9291.334 / 1653.334 Output Total 300 / 300 Balance 875.333 / 816.697 5278.334 / 1653.334 Weight 97.5 kg Intake: IV 935.333 / 547.268 4547.334 / 1013.334 Oral 240 / 240 640 / 640 Output: Urine 300 / 300 Other: Urine Color Yellow Yellow Urine Appearance Clear Clear Comment pt removed the hat Stool Size Large Stool Characteristics Soft Formed Brown Voiding Methods Toilet Toilet Labs on day of discharge: 05/12/18 13:56 Hip - Right Anaerobic Culture - Pending Preliminary micro results at discharge 05/12/18 13:56 Surgical Culture - Preliminary Hip - Right Gram Positive Carla 05/12/18 13:56 Anaerobic Culture - Pending Hip - Right PFSH Surgical History S/P total hip arthroplasty (Acute) H/O arthroscopy of left knee (Resolved) History of lumbar spinal fusion (Resolved) Appendectomy Colonoscopy - IV Sedation (07/21/16) Colonoscopy - MAC Vasectomy Family History Mother No problems noted. Father Essential hypertension Sister No problems noted. Brother No problems noted. Grandfather No problems noted. Grandfather No problems noted. Grandmother No problems noted. 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
--- NOTE | 2018-05-13 11:19 | PDOC.CMDIS ---
- If Service Date Differs Date of service: 05/13/18 Time of Service: 11:19 LACE Index Scoring Tool - Questions: Length of Stay (in days): 2 Acuity (Admit via E.D.?): Yes Care Management Discharge Reason for Hospitalization: Draining of hip surgical wound. Discharge Plan: Leonard will discharge home when medically ready per MD. Leonard will discharge with a wound vac and new home health nursing services. Leonard will transport via private vehicle with his daughter or , Lanny. Patient/Family Education Needs: Discharge education, any limitations, and follow up plan of care. Ask Me Three discussion. Services Needed at Discharge: Home Health Care Services ([facility]; PT/OT)
--- NOTE | 2018-05-13 13:35 | CHAPLAIN ---
Leonard expects to be discharged later today. His daughter will likely pick him up as his is busy with her business, [employer]. Leonard and his attended [facility] [employer], but most recently he has not attended taoist and his goest o the the [employer]. We talked about how people find God in different places, many outside of taoist.
== END 2018-05-13 11:55 | disposition home health service (06) ==
PROVIDERS: Admitting Provider Student in an Organized Health Care Education/Training Program; PCP Emergency Medicine; Visit Provider Student in an Organized Health Care Education/Training Program
PROC: 0QB60ZZ Excision of Right Upper Femur, Open Approach (ICD-10-PCS; CPT 11044; principal; 2018-05-12 12:05)
DX: T81.32XA Disruption of internal operation (surgical) wound, not elsewhere classified, initial encounter (principal); L76.34 Postprocedural seroma of skin and subcutaneous tissue following other procedure; Y83.1 Surgical operation with implant of artificial internal device as the cause of abnormal reaction of the patient, or of later complication, without mention of misadventure at the time of the procedure; Z96.641 Presence of right artificial hip joint; B95.7 Other staphylococcus as the cause of diseases classified elsewhere
CPT/HCPCS: 11044; 97607; 87077; 99220; NC; 87070; 87075; 87186; 87205; G0378; J0690; J1885; J2250

== ENCOUNTER 2018-06-26 10:12 | Outpatient (CLI) | payer MEDICARE, SELFPAY ==
[2018-06-27 09:47] LABS: PSA, Screening 4.8 ng/ml (0-4.5)
== END 2018-06-26 10:32 ==
PROVIDERS: PCP Emergency Medicine; Visit Provider Emergency Medicine
DX: R97.20 Elevated prostate specific antigen [PSA] (principal); Z12.5 Encounter for screening for malignant neoplasm of prostate
CPT/HCPCS: 36415; 84153

== ENCOUNTER 2018-07-31 09:05 | Outpatient (CLI) | payer MEDICARE, SELFPAY ==
--- NOTE | 2018-07-31 08:44 | DI.RAD_ITS ---
SYMPTOM/DIAGNOSIS: S/P RT THR, RT KNEE PAIN RIGHT KNEE: Two views. No priors. Marked narrowing and periarticular spurring is seen at the patellofemoral joint. There is mild periarticular spurring seen in the medial femoral tibial joint space. There is a large enthesophyte at the inferior aspect of the patella. No acute fracture or dislocation is seen. The soft tissues are unremarkable. IMPRESSION: Marked osteoarthritis of the right knee, particularly involving the patellofemoral joint. RIGHT HIP: Two views. Comparison is made with 05/02/18. There are again seen post surgical changes of a right total hip replacement. No evidence of hardware failure is seen. The bones are intact. Stable degenerative changes are seen in the left hip. Surgical clips are seen inferior to the pelvis, likely reflecting prior vasectomy. IMPRESSION: Stable right THR.
== END 2018-07-31 09:25 ==
PROVIDERS: PCP Emergency Medicine; Referring Provider Emergency Medicine; Visit Provider Orthopaedic Surgery
DX: M25.561 Pain in right knee; M17.11 Unilateral primary osteoarthritis, right knee; Z96.641 Presence of right artificial hip joint; W00.0XXA Fall on same level due to ice and snow, initial encounter; X50.1XXA Overexertion from prolonged static or awkward postures, initial encounter
CPT/HCPCS: 20610; 99212; 99213; 73502; 73560; J1040

== ENCOUNTER → 2018-08-29 09:58 | Outpatient (BNVA) | payer MEDICARE, SELFPAY | PROVIDERS: PCP Emergency Medicine; Referring Provider Emergency Medicine; Visit Provider Orthopaedic Surgery | DX: M17.11 Unilateral primary osteoarthritis, right knee (principal); Z98.890 Other specified postprocedural states | CPT/HCPCS: 20610; 99212; J1040 ==

== ENCOUNTER 2018-11-09 15:22 | Emergency (ER) | payer MEDICARE, SELFPAY ==
[2018-11-09 15:25] VITALS: BP 116/67; PULSE 88; RESP 16; TEMP 36.5; O2SAT 98
--- NOTE | 2018-11-09 15:41 | W.ED.GENAD ---
Discharge Plan Disposition Patient Disposition: HOME Condition: Improving Discharge Details Chief Complaint: Cellulitis Clinical Impression: Tick bite Primary Care Provider: Jose Donnelly ED Provider: Abiel Morejon Home Meds and New Rx's Prescriptions: New doxycycline hyclate 100 mg capsule 100 mg PO BID 10 Days Qty: 20 RF: 0 Continued sertraline 50 mg tablet 50 mg PO DAILY Qty: 90 RF: 3 tamsulosin [Flomax] 0.4 mg capsule 0.4 mg PO HS Qty: 90 RF: 3 Zyrtec 10 MG capsule 10 mg PO DAILY RF: 0 Discharge Instructions Instructions: Tick Bite (ED) Additional Instructions: Doxycycline may cause increased sun sensitivity. Take antibiotics for the entire course Return for any acute concerns. Continue your regular medication Medical Decision Making 67-year-old male who had a tick removed from his right scapular area 2 days ago, subsequent has developed an erythematous lesion surrounding it. He is not systemically ill, his vital signs are normal. He did not keep the tick that was removed, cannot exclude deer tick and therefore Lyme exposure. I will place him on a course of doxycycline. He understands increased sun sensitivity. He is stable for discharge to home. HPI General Mode of arrival: ambulatory. Date/Time Provider Initiated Documentation: 11/09/18 15:27. Limitations to Documentation: no limitations. Information obtained by: patient. History of Present Illness 67 year old M presents to the emergency department with the chief complaint of Tick bite right posterior thorax with a rash, described as mild, and is localized to the right. Patient reports no radiation. Patient started experiencing this day(s) and it has been constant. No relieving factors improve symptom(s), No exacerbating factors reported . Patient notes no other symptoms.. Patient did receive the following treatments prior to arrival, none Related Data Home Medications Medication Instructions Recorded Confirmed Zyrtec 10 mg PO DAILY 03/18/15 11/09/18 sertraline 50 mg tablet 50 mg PO DAILY #90 tab 02/12/18 11/09/18 tamsulosin 0.4 mg capsule 0.4 mg PO HS #90 cap 07/17/18 11/09/18 doxycycline hyclate 100 mg PO BID 10 Days #20 cap 11/09/18 Previous Rx's Medication Instructions Recorded sertraline 50 mg tablet 50 mg PO DAILY #90 tab 02/12/18 tamsulosin 0.4 mg capsule 0.4 mg PO HS #90 cap 07/17/18 doxycycline hyclate 100 mg PO BID 10 Days #20 cap 11/09/18 Allergies Allergy/AdvReac Type Severity Reaction Status Date / Time atorvastatin calcium AdvReac Unknown Verified 11/09/18 15:31 [From Lipitor] smoke AdvReac Mild uri Uncoded 11/09/18 15:31 symptoms General Stated Complaint: Cellulitis BETHANY: 4 Review of Systems Review of Systems No fever. Patient states he is otherwise been well. 6 systems reviewed and otherwise neg [facility] Medical History Degenerative joint disease of left hip (Chronic) Overweight (Acute) Onychomycosis (Acute) Microscopic hematuria (Acute 11/20/17) Lactose intolerance (Acute) Hyperlipidemia (Acute) History of tobacco use (Acute) Generalized osteoarthrosis (Acute) Elevated prostate specific antigen [PSA] (Acute 03/13/12) Benign prostatic hyperplasia (Acute) Atypical nevi (Acute) Anxiety disorder (Acute) Microscopic hematuria (Acute) Surgical History History of total right hip replacement (Chronic) S/P total hip arthroplasty (Acute) H/O arthroscopy of left knee (Resolved) History of lumbar spinal fusion (Resolved) Appendectomy Colonoscopy - IV Sedation (07/21/16) Colonoscopy - MAC Vasectomy Family History Mother No problems noted. Father Essential hypertension Sister No problems noted. Brother No problems noted. Grandfather No problems noted. Grandfather No problems noted. Grandmother No problems noted. 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 Pleasant, well groomed, interactive. HEAD: Normocephalic, atraumatic ENT: Mucous membranes moist, oropharynx unremarkable, External ear exam unremarkable EYES: PERRL, EOMI NECK: Full ROM, no TRISHA, no menigismus CHEST/RESP: Nontender, clear to auscultation bilateral, no wheeze/rhonchi/rales. The right posterior thorax at the lateral scapular edges reveals erythematous lesion that blanches to the touch, no fluctuance. CARDIOVASCULAR: RRR, no murmur, rub sherine. 2+ Rad pulse bilateral ABDOMEN: Soft, nontender, no mass. +Bowel sounds EXT: Full ROM, no edema. Neuro: Grossly normal neurologic exam, conversant, interactive. Psych: Speech fluent, thoughts congruent, affect normal Course Vital Signs Temperature 36.5 C 11/09/18 15:25 Pulse 88 11/09/18 15:25 Respiratory Rate 16 11/09/18 15:25 Blood Pressure 116/67 11/09/18 15:25 Pulse Oximetry 98 11/09/18 15:25 Temperature 36.5 C 11/09/18 15:25 Temperature Source Temporal Artery Scan 11/09/18 15:25 Pulse 88 11/09/18 15:25 Respiratory Rate 16 11/09/18 15:25 Respiratory Effort Non-Labored 11/09/18 15:29 Blood Pressure 116/67 11/09/18 15:25 Blood Pressure Position Sitting 11/09/18 15:25 Pulse Oximetry 98 11/09/18 15:25 Oxygen Delivery Method Room Air 11/09/18 15:25 Oxygen Flow Rate 0 11/09/18 15:25 Pain Level 0 11/09/18 15:25
--- NOTE | 2018-11-09 15:44 | ED.GENADUL_ITS ---
Discharge Plan Disposition Patient Disposition: HOME Condition: Improving Discharge Details Chief Complaint: Cellulitis Clinical Impression: Tick bite Primary Care Provider: Jose Donnelly ED Provider: Abiel Morejon Home Meds and New Rx's Prescriptions: New doxycycline hyclate 100 mg capsule 100 mg PO BID 10 Days Qty: 20 RF: 0 Continued sertraline 50 mg tablet 50 mg PO DAILY Qty: 90 RF: 3 tamsulosin [Flomax] 0.4 mg capsule 0.4 mg PO HS Qty: 90 RF: 3 Zyrtec 10 MG capsule 10 mg PO DAILY RF: 0 Discharge Instructions Instructions: Tick Bite (ED) Additional Instructions: Doxycycline may cause increased sun sensitivity. Take antibiotics for the entire course Return for any acute concerns. Continue your regular medication Medical Decision Making 67-year-old male who had a tick removed from his right scapular area 2 days ago, subsequent has developed an erythematous lesion surrounding it. He is not systemically ill, his vital signs are normal. He did not keep the tick that was removed, cannot exclude deer tick and therefore Lyme exposure. I will place him on a course of doxycycline. He understands increased sun sensitivity. He is stable for discharge to home. HPI General Mode of arrival: ambulatory . Date/Time Provider Initiated Documentation: 11/09/18 15:27 . Limitations to Documentation: no limitations . Information obtained by: patient . History of Present Illness 67 year old M presents to the emergency department with the chief complaint of Tick bite right posterior thorax with a rash, described as mild, and is localized to the right. Patient reports no radiation. Patient started experiencing this day(s) and it has been constant. No relieving factors improve symptom(s), No exacerbating factors reported . Patient notes no other symptoms.. Patient did receive the following treatments prior to arrival, none Related Data Home Medications Medication Instructions Recorded Confirmed Zyrtec 10 mg PO DAILY 03/18/15 11/09/18 sertraline 50 mg tablet 50 mg PO DAILY #90 tab 02/12/18 11/09/18 tamsulosin 0.4 mg capsule 0.4 mg PO HS #90 cap 07/17/18 11/09/18 doxycycline hyclate 100 mg PO BID 10 Days #20 cap 11/09/18 Previous Rx's Medication Instructions Recorded sertraline 50 mg tablet 50 mg PO DAILY #90 tab 02/12/18 tamsulosin 0.4 mg capsule 0.4 mg PO HS #90 cap 07/17/18 doxycycline hyclate 100 mg PO BID 10 Days #20 cap 11/09/18 Allergies Allergy/AdvReac Type Severity Reaction Status Date / Time atorvastatin calcium AdvReac Unknown Verified 11/09/18 15:31 [From Lipitor] smoke AdvReac Mild uri Uncoded 11/09/18 15:31 symptoms General Stated Complaint: Cellulitis BETHANY: 4 Review of Systems Review of Systems No fever. Patient states he is otherwise been well. 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) Overweight (Acute) Onychomycosis (Acute) Microscopic hematuria (Acute 11/20/17) Lactose intolerance (Acute) Hyperlipidemia (Acute) History of tobacco use (Acute) Generalized osteoarthrosis (Acute) Elevated prostate specific antigen [PSA] (Acute 03/13/12) Benign prostatic hyperplasia (Acute) Atypical nevi (Acute) Anxiety disorder (Acute) Microscopic hematuria (Acute) Surgical History History of total right hip replacement (Chronic) S/P total hip arthroplasty (Acute) H/O arthroscopy of left knee (Resolved) History of lumbar spinal fusion (Resolved) Appendectomy Colonoscopy - IV Sedation (07/21/16) Colonoscopy - MAC Vasectomy Family History Mother No problems noted. Father Essential hypertension Sister No problems noted. Brother No problems noted. Grandfather No problems noted. Grandfather No problems noted. Grandmother No problems noted. 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 Pleasant, well groomed, interactive. HEAD: Normocephalic, atraumatic ENT: Mucous membranes moist, oropharynx unremarkable, External ear exam unremarkable EYES: PERRL, EOMI NECK: Full ROM, no TRISHA, no menigismus CHEST/RESP: Nontender, clear to auscultation bilateral, no wheeze/rhonchi/rales. The right posterior thorax at the lateral scapular edges reveals erythematous lesion that blanches to the touch, no fluctuance. CARDIOVASCULAR: RRR, no murmur, rub sherine. 2+ Rad pulse bilateral ABDOMEN: Soft, nontender, no mass. +Bowel sounds EXT: Full ROM, no edema. Neuro: Grossly normal neurologic exam, conversant, interactive. Psych: Speech fluent, thoughts congruent, affect normal Course Vital Signs Temperature 36.5 C 11/09/18 15:25 Pulse 88 11/09/18 15:25 Respiratory Rate 16 11/09/18 15:25 Blood Pressure 116/67 11/09/18 15:25 Pulse Oximetry 98 11/09/18 15:25 Temperature 36.5 C 11/09/18 15:25 Temperature Source Temporal Artery Scan 11/09/18 15:25 Pulse 88 11/09/18 15:25 Respiratory Rate 16 11/09/18 15:25 Respiratory Effort Non-Labored 11/09/18 15:29 Blood Pressure 116/67 11/09/18 15:25 Blood Pressure Position Sitting 11/09/18 15:25 Pulse Oximetry 98 11/09/18 15:25 Oxygen Delivery Method Room Air 11/09/18 15:25 Oxygen Flow Rate 0 11/09/18 15:25 Pain Level 0 11/09/18 15:25
== END 2018-11-09 15:55 | disposition home or self-care (01) ==
PROVIDERS: Emergency Provider Emergency Medicine; PCP Emergency Medicine
DX: S20.461A Insect bite (nonvenomous) of right back wall of thorax, initial encounter (principal); W57.XXXA Bitten or stung by nonvenomous insect and other nonvenomous arthropods, initial encounter
CPT/HCPCS: 99283

== ENCOUNTER → 2018-11-25 15:36 | Outpatient (BNVA) | payer MEDICARE, SELFPAY | PROVIDERS: PCP Emergency Medicine; Visit Provider Urology | DX: R97.20 Elevated prostate specific antigen [PSA] (principal); R39.89 Other symptoms and signs involving the genitourinary system | CPT/HCPCS: 99213 ==

== ENCOUNTER 2018-11-25 16:15 | Outpatient (CLI) | payer MEDICARE, SELFPAY ==
[2018-11-27 09:32] LABS: PSA, Diagnostic 4.3 ng/ml (0-4.5)
== END 2018-11-25 16:35 ==
PROVIDERS: PCP Emergency Medicine; Visit Provider Urology
DX: R97.20 Elevated prostate specific antigen [PSA] (principal)
CPT/HCPCS: 99213; 84153

== ENCOUNTER 2019-06-24 14:47 | Outpatient (CLI) | payer MEDICARE, SELFPAY ==
[2019-06-25 14:03] LABS: PSA, Screening 4.6 ng/mL (0.0-4.5)
== END 2019-06-24 15:07 ==
PROVIDERS: PCP Emergency Medicine; Visit Provider Emergency Medicine
DX: R31.29 Other microscopic hematuria (principal); Z12.5 Encounter for screening for malignant neoplasm of prostate
CPT/HCPCS: 36415; 84153

== ENCOUNTER → 2020-01-13 08:19 | Outpatient (BNVA) | payer MEDICARE, SELFPAY | PROVIDERS: PCP Emergency Medicine; Visit Provider Nurse Practitioner Gerontology | DX: N40.1 Benign prostatic hyperplasia with lower urinary tract symptoms (principal); R35.0 Frequency of micturition; R31.29 Other microscopic hematuria; R97.20 Elevated prostate specific antigen [PSA] | CPT/HCPCS: 81003; 99213 ==

== ENCOUNTER 2020-06-25 20:50 | Outpatient (REF) | payer OTHER, SELFPAY ==
[2020-06-25 21:28] LABS: Calculated LDL 166 mg/dL (<100); Cholesterol 258 mg/dL (<200); HDL Cholesterol 48 mg/dL (40-60); Triglyceride 220 mg/dL (<150)
[2020-06-25 21:37] LABS: Hemoglobin A1C 5.9 % (<5.7)
== END 2020-06-25 20:51 | disposition home or self-care (01) ==
LOC: NCHCN 20:50
PROVIDERS: PCP Emergency Medicine; Visit Provider Nurse Practitioner Gerontology
DX: R97.20 Elevated prostate specific antigen [PSA] (principal); E66.3 Overweight; R31.29 Other microscopic hematuria; N40.0 Benign prostatic hyperplasia without lower urinary tract symptoms
CPT/HCPCS: 80061; 84153; 83036

== ENCOUNTER 2020-07-12 08:36 | Outpatient (CLI) | payer OTHER, SELFPAY ==
[2020-07-13 18:10] LABS: COVID-19 RT-PCR UVMMC Result Positive (Negative)
== END 2020-07-12 08:37 | disposition home or self-care (01) ==
LOC: LBO 08:37
PROVIDERS: PCP Emergency Medicine; Visit Provider Family Medicine
DX: Z20.822 Contact with and (suspected) exposure to COVID-19 (principal); R05 Cough; R50.9 Fever, unspecified
CPT/HCPCS: U0003; U0005

== ENCOUNTER 2020-07-16 05:31 | Outpatient (CLI) | payer OTHER, SELFPAY ==
[2020-07-16 12:35] VITALS: BP 114/73; PULSE 93; RESP 18; TEMP 36.9; O2SAT 92
[2020-07-16] MEDS: Normal Saline 500 ML 30 ML IV (13:33)
[2020-07-16] MEDS: Normal Saline Flush 10 ML SYR IVP (13:33)
[2020-07-16 13:40] VITALS: BP 119/76; PULSE 90; RESP 20; TEMP 37.4; O2SAT 92
[2020-07-16 14:00] VITALS: BP 116/75; PULSE 91; RESP 18; TEMP 37.4; O2SAT 93
[2020-07-16 14:25] VITALS: BP 125/79; PULSE 86; RESP 20; TEMP 37.7; O2SAT 92
[2020-07-16 14:58] VITALS: BP 122/82; PULSE 90; RESP 20; TEMP 37.7; O2SAT 93
== END 2020-07-16 05:32 | disposition home or self-care (01) ==
PROVIDERS: PCP Emergency Medicine; Visit Provider Family Medicine
DX: U07.1 COVID-19 (principal)
CPT/HCPCS: 96365

== ENCOUNTER 2020-12-03 10:51 | Outpatient (CLI) | payer OTHER, SELFPAY ==
--- NOTE | 2020-12-03 10:45 | DI.RAD_ITS ---
Exam(s) XR RIBS LT W PA LAT CHEST CLINICAL HISTORY: left rib pain s/p fall,R07.81,PLEURODYNIA. COMPARISON: No exams were available for comparison FINDINGS: LUNGS: Clear. No pneumothorax or pleural effusion.. HEART: Normal. MEDIASTINUM: Normal. BONES: Minimally displaced fractures of the distal left 7th through 9th ribs.. No bony destructive l esion is seen. Spurring at the acromioclavicular joint. Degenerative changes in the thoracic spine. No compression fracture. IMPRESSION: 1. Minimally displaced fractures of the distal 7th through 9th ribs.. 2. No acute pulmonary findings.
== END 2020-12-03 11:11 ==
PROVIDERS: PCP Emergency Medicine; Visit Provider Nurse Practitioner Family
DX: S22.32XA Fracture of one rib, left side, initial encounter for closed fracture (principal); W19.XXXA Unspecified fall, initial encounter
CPT/HCPCS: 71046; 71100

== ENCOUNTER → 2021-01-25 15:14 | Outpatient (BNVA) | payer OTHER, SELFPAY | PROVIDERS: PCP Emergency Medicine; Referring Provider Emergency Medicine; Visit Provider Nurse Practitioner Gerontology | DX: R31.29 Other microscopic hematuria (principal); R97.20 Elevated prostate specific antigen [PSA]; N40.0 Benign prostatic hyperplasia without lower urinary tract symptoms | CPT/HCPCS: 81003; 99214 ==

== ENCOUNTER 2021-07-05 03:51 | Outpatient (CLI) | payer OTHER, SELFPAY ==
[2021-07-05 11:52] LABS: Hemoglobin A1C 5.7 % (<5.7)
[2021-07-05 12:14] LABS: Cholesterol 241 mg/dL (<200); HDL Cholesterol 40 mg/dL (40-60); Triglyceride 425 mg/dL (<150)
[2021-07-05 12:34] LABS: LDL CHOLESTEROL 82 mg/dL (<100)
[2021-07-05 17:26] LABS: PSA, Screening 4.9 ng/mL (0.0-4.5)
== END 2021-07-05 03:52 | disposition home or self-care (01) ==
LOC: LBO 03:51
PROVIDERS: PCP Family Medicine; Visit Provider Emergency Medicine
DX: E11.9 Type 2 diabetes mellitus without complications (principal); N40.0 Benign prostatic hyperplasia without lower urinary tract symptoms; Z12.5 Encounter for screening for malignant neoplasm of prostate
CPT/HCPCS: 36415; 80061; 83721; 84153; 83036

== ENCOUNTER → 2021-10-18 18:21 | Outpatient (CLI) | payer OTHER, SELFPAY ==
--- NOTE | 2021-10-18 18:30 | DI.RAD_ITS ---
Exam(s) XR KNEE LT 3V AP,LAT,ZEB EXAM: XR KNEE LT 3V AP,LAT,ZEB CLINICAL HISTORY: left knee pain. TECHNIQUE: 2D digital imaging was performed. COMPARISON: CR XR knee RT 2V AP,lat from 07/31/2018 FINDINGS: Four views There is no evidence of fracture nor prominent joint effusion. There are advanced osteoarthritic deg enerative changes in the patellofemoral compartment. Moderate degenerative changes medial lateral co mpartments. No loose intra-articular body IMPRESSION: Advanced osteoarthritic degenerative changes in the patellofemoral compartment. More moderate degene rative changes in the medial lateral compartments. DATA REPOSITORY: RADIATION DOSE DELIVERED:
--- NOTE | 2021-10-18 19:54 | DI.VRAD_ITS ---
PROCEDURE INFORMATION: Exam: XR Left Knee Exam date and time: 10/18/2021 6:45 PM Age: 70 years old Clinical indication: Left; Patient HX: L knee pain TECHNIQUE: Imaging protocol: XR Left knee. Views: 3 views. COMPARISON: No relevant prior studies available. FINDINGS: Bones/joints: There is a bony exostosis at the lateral aspect of the proximal tibial diaphysis. There is underlying osteo sclerotic change. There is severe degenerative change particularly at the patellofemoral articulation with [id number] arthropathy. Small joint effusion. Soft tissues: Normal. IMPRESSION: 1. Osteo sclerotic change proximal tibial diaphysis at the lateral aspect, uncertain chronicity. Neoplasm not excludable. 2. Osteo arthritis particularly involving the patellofemoral compartment. Dictated and Authenticated by: Jenny Lyle MD. Ordering:JUAN Soto MD
== END ==
PROVIDERS: PCP Nurse Practitioner Family; Visit Provider Nurse Practitioner Family
DX: M25.562 Pain in left knee (principal); M17.12 Unilateral primary osteoarthritis, left knee
CPT/HCPCS: 73562

== ENCOUNTER 2021-12-07 17:25 | Outpatient (CLI) | payer OTHER, SELFPAY ==
[2021-12-09 10:51] LABS: Lyme Ab w Rflx to Lyme Confirm Negative (Negative)
[2021-12-15 17:25] LABS: Anaplasma phagocytophilum Negative (Negative); B. miyamotoi PCR Negative (Negative); Babesia divergens/MO-1 Negative (Negative); Babesia duncani Negative (Negative); Babesia microti Negative (Negative); Ehrlichia chaffeensis Negative (Negative); Ehrlichia ewingii/canis Negative (Negative); Ehrlichia muris eauclairensis Negative (Negative)
== END 2021-12-07 17:26 | disposition home or self-care (01) ==
LOC: LBO 17:27
PROVIDERS: PCP Nurse Practitioner Family; Visit Provider Nurse Practitioner Family
DX: T14.8XXA Other injury of unspecified body region, initial encounter (principal); W57.XXXA Bitten or stung by nonvenomous insect and other nonvenomous arthropods, initial encounter; L29.8 Other pruritus; L53.8 Other specified erythematous conditions
CPT/HCPCS: 36415; 87798; 86618

== ENCOUNTER → 2022-01-24 14:42 | Outpatient (BNVA) | payer OTHER, SELFPAY | PROVIDERS: PCP Nurse Practitioner Family; Referring Provider Nurse Practitioner Family; Visit Provider Nurse Practitioner Gerontology | DX: N40.0 Benign prostatic hyperplasia without lower urinary tract symptoms; R31.29 Other microscopic hematuria; R97.20 Elevated prostate specific antigen [PSA] | CPT/HCPCS: 51798; 81003; 99214 ==

== ENCOUNTER 2022-01-24 17:09 | Outpatient (REF) | payer OTHER, SELFPAY ==
[2022-01-24 17:38] LABS: Bilirubin Negative (Negative); Blood Small (Negative); Clarity Turbid (Clear); Glucose Negative (Negative); Ketones Negative (Negative); Leukocyte Esterase Negative (Negative); Nitrite Negative (Negative); Specific Gravity >= 1.030 (1.005-1.025); Urobilinogen 0.2 EU/dL (Up TO 0.2)
[2022-01-24 18:25] LABS: Bacteria Negative HPF (Negative); Casts Negative LPF (Negative); Crystals Many Amorphous HPF (Negative); Epithelial Cells Negative HPF (Negative); Mucus Negative (Negative); Other Cells Negative (Negative); RBC Negative HPF (0-2); WBC Negative HPF (0-5)
[2022-01-24 19:28] LABS: C & S Indicated? No
== END 2022-01-24 17:10 | disposition home or self-care (01) ==
LOC: LBN 17:09
PROVIDERS: PCP Nurse Practitioner Family; Visit Provider Nurse Practitioner Gerontology
DX: R31.9 Hematuria, unspecified (principal)
CPT/HCPCS: 81003; 81015

== ENCOUNTER 2022-09-28 13:16 | Outpatient (CLI) | payer OTHER, SELFPAY ==
--- NOTE | 2022-09-28 12:45 | DI.RAD_ITS ---
Exam(s) XR THORACIC SPINE COMPLETE EXAM: XR THORACIC SPINE COMPLETE CLINICAL HISTORY: back pain M54.9 DORSALGIA MID BACK PAIN RT SIDE. TECHNIQUE: 2D digital imaging was performed of the thoracic spine. Three views were obtained. AP, swimmer's and lateral views were obtained. COMPARISON: CR XR RIBS LT W PA LAT CHEST from 12/03/2020 FINDINGS: BONES: There is no fracture or destructive lesion. Flowing osteophytes are seen anteriorly on the lat eral view in the thoracic spine. DISKS:Alignment is within normal limits. Interverebral disc spaces are maintained. SOFT TISSUE: Visualized lungs are clear. 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 DATA REPOSITORY: RADIATION DOSE DELIVERED:
== END 2022-09-28 13:36 ==
PROVIDERS: PCP Nurse Practitioner Family; Visit Provider Nurse Practitioner Family
DX: M54.9 Dorsalgia, unspecified (principal); R93.7 Abnormal findings on diagnostic imaging of other parts of musculoskeletal system
CPT/HCPCS: 72072

== ENCOUNTER 2022-12-22 19:08 | Outpatient (REF) | payer OTHER, SELFPAY ==
--- NOTE | 2022-12-22 12:50 | SKI_PTH ---
PATIENT: Leonard Edmondson LOC: [facility] U#:[id number] AGE/SX: 72/M ROOM: RE12/22/[address]: Franc Howe DNP : 1950 BED: DIS: 12/22/2022 SPEC #: [id number] RECD: 12/25/22 12:59 STATUS: YANN REQ #: [id number] [place]: 12/22/22 12:[address]: Franc Horner DEPT: Surgical Specimen RECD BY: Brenna Mujica ENTERED: 12/25/22 13:01 SP TYPE: CIERRA LOPEZ DR: Daniel Mike, MACHINE SHOP SPECIALIST Tissues: 1 - SKIN BIOPSY(SHAVE/PUNCH) Procedures: SKIN LEVEL 4 Comments: [id number]
== END 2022-12-22 19:09 | disposition home or self-care (01) ==
LOC: LBN 19:08
PROVIDERS: PCP Nurse Practitioner Family; Visit Provider Nurse Practitioner Family
DX: D22.5 Melanocytic nevi of trunk (principal)
CPT/HCPCS: 88305

== ENCOUNTER 2023-01-16 02:30 | Outpatient (CLI) | payer OTHER, SELFPAY ==
[2023-01-16 18:51] LABS: PSA, Screening 5.4 ng/mL (<=6.5)
== END 2023-01-16 02:31 | disposition home or self-care (01) ==
LOC: LBO 02:30
PROVIDERS: PCP Nurse Practitioner Family; Visit Provider Nurse Practitioner Gerontology
DX: N40.0 Benign prostatic hyperplasia without lower urinary tract symptoms (principal); R97.20 Elevated prostate specific antigen [PSA]; R31.29 Other microscopic hematuria; Z12.5 Encounter for screening for malignant neoplasm of prostate
CPT/HCPCS: 36415; 84153

== ENCOUNTER → 2023-01-24 12:13 | Outpatient (BNVA) | payer OTHER, SELFPAY | PROVIDERS: PCP Nurse Practitioner Family; Visit Provider Nurse Practitioner Gerontology | DX: N40.1 Benign prostatic hyperplasia with lower urinary tract symptoms (principal); R97.20 Elevated prostate specific antigen [PSA]; R31.29 Other microscopic hematuria | CPT/HCPCS: 51798; 99213 ==

== ENCOUNTER 2023-05-01 12:46 | Emergency (ER) | payer OTHER, SELFPAY ==
[2023-05-01 12:54] VITALS: BP 134/84; PULSE 74; RESP 14; TEMP 36.8; O2SAT 98
--- NOTE | 2023-05-01 13:00 | DI.RAD_ITS ---
Exam(s) XR CHEST 2V PA LATERAL EXAM: XR CHEST 2V PA LATERAL CLINICAL HISTORY: cough, crackles RLL. TECHNIQUE: 2D digital imaging was performed. COMPARISON: CR XR RIBS LT W PA LAT CHEST from 12/03/2020 FINDINGS: 2 views: Heart size is normal. The mediastinum is not widened. Lungs are clear. No infiltrates nor pleural effusions. IMPRESSION: No acute pulmonary findings. DATA REPOSITORY: RADIATION DOSE DELIVERED:
--- NOTE | 2023-05-01 13:06 | ED.GENADUL_ITS ---
Discharge Plan Disposition Patient Disposition: Home Condition: Stable Discharge Details Clinical Impression: Hematuria, Bladder calculi, Cyst of left kidney Primary Care Provider: Daniel Mike ED Provider: Eugenia Smith Home Meds and New Rx's Prescriptions: Continued sildenafil [Viagra] 100 mg tablet 100 mg PO DAILY MDD 100 mg PRN (Reason: ED) Qty: 10 6RF tamsulosin [Flomax] 0.4 mg capsule 0.4 mg PO HS Qty: 90 3RF sertraline 50 mg tablet 50 mg PO DAILY Qty: 90 3RF Discharge Instructions Instructions: Hematuria (ED) Additional Instructions: Your imaging shows a stone in your bladder which is likely was causing your bleeding. Plan is for you to have this removed on by Dr. Torrez. Please continue to encourage hydration. You may use Tylenol as needed for discomfort. If you develop any difficulty urinating, you will need to return to the emergency department for likely catheter placement. If you develop fevers, chills or increased pain please also return to the emergency department. You will hear from surgical planning team tomorrow for time and further instru ctions. Referrals: Daniel Mike, [employer] [Primary Care Provider] - Medical Decision Making <NICOLE Alford - Last Filed: 05/01/23 16:36> Patient is a pleasant 72 year old male with c/c of hematuria. States that he noted yudith red blood in his urine today, just prior to arrival. Has history of microscopic hematuria and enlarged prostate with elevated PSA. He is typically followed by urology. He denies any pain. No CVA tenderness. Denies any fevers or chills. However, the patient also endorses cough x 1 week with the cough not improving. States that he has been trying to forcefully bring up sputum. Patient is not anticoagulated. No recent change in his medications. Past medical history also includes anxiety, BPH, OA, history of tobacco use. On exam, patient appears slightly anxious. Does have some crackles in the right lower lobe but is not having any respiratory distress symptoms. No CVA tenderness. No masses or abdominal pain. With his cough and crackles, considered pneumonia, will obtain CXR. His cough is not worsening and he is not having fevers, may be more of lingering cough that acute bacterial infection. In regard to blood, considered CA, exacerbation of his baseline hematuria, prostate issues, stone vs. other. Consulted with Jennifer Sy who follows the patient in urology, will move forward with imaging. CXR reviewed by radiologist: FINDINGS: 2 views: Heart size is normal. The mediastinum is not widened. Lungs are clear. No infiltrates nor pleural effusions. IMPRESSION: No acute pulmonary findings. Labs reviewed, no sigfncaint abnormality, waiting for UA. Going for CT after creatinine WNL. CT reviewed by radiologist: FINDINGS: VISUALIZED LUNG BASES: No nodules nor pleural effusions evident. ABDOMEN: There is no ascites. LIVER: There are few small sub cm cysts in the liver. No ominous lesions. No dilated intrahepatic ducts. No dilated intrahepatic ducts. GALLBLADDER/BILIARY: No obvious gallbladder pathology. CBD is not dilated. PANCREAS: No evidence of pancreatic mass nor dilatation of the pancreatic duct. SPLEEN: Spleen is not enlarged. No obvious intrasplenic lesions. Splenic and portal veins are patent. ADRENALS: There are no significant adrenal masses. KIDNEYS:There is a partially exophytic nodule off the posterior cortex of the left kidney which measures 1.5 x 1.4 cm. This is probably hemorrhagic cyst. It does, however, exhibits some internal enhancement. In addition, it has slightly increased in size from 2017. There are no other focal findings of significance in the kidneys with the exception of a 1 cm benign cyst in the right kidney.. No calculi. No hydronephrosis nor hydroureter.. There are few small parapelvic cysts bilaterally, more so on the left side. URETERS: There is a solitary nondilated ureter on each side. There are no significant filling defects within the renal pelves. URINARY BLADDER: There are 2 adjacent oval shape calculi in the right-side of the urinary bladder, both measuring 11 by 7 mm. They are associated with some wall thickening at this level which appears somewhat frondlike and may be neoplastic, as opposed to just local wall edema. PROSTATE GLAND: Enlarged. Measures 6.7 cm wide by 6 cm AP and indents the bladder base. No evidence of obturator adenopathy. ABDOMINAL AORTA: Abdominal aorta is not enlarged. However, there is significant arterial megaly of the iliac arteries. This is most prominent in the left common iliac artery which distally exhibits fusiform dilatation to 2.6 cm. However, this appears relatively stable when compared to CT scan of 2017. LYMPH NODES:There is no retroperitoneal nor paraaortic adenopathy. ABDOMINAL WALL: There is a fat only containing left inguinal hernia. GI: There is no evidence of bowel obstruction, free air, nor abscess. PELVIS: GI: No evidence of appendicitis.No evidence of sigmoid diverticulitis. LYMPH NODES: There is no intrapelvic nor inguinal adenopathy. REPRODUCTIVE: Enlarged prostate-see above URINARY BLADDER: Calculi and possible mass-see above OSSEOUS: There is a right hip prosthesis. There is fusion hardware in the lumbar spine. No fractures nor significant osseous lesions. IMPRESSION: 1. The main findings are in the urinary bladder, partially obscured by beam hardening artifact from the right hip prosthesis. However, in the right-side of the urinary bladder there are 2 adjacent oval-shaped calculi measuring 11 x 7 mm. There is a suggestion that these are associated with a possible bladder wall mass/possible malignancy. Urology consultation for cystoscopy recommended 2. Urinary bladder is significantly enlarged 3. There is a 1.5 x 1.4 cm partially exophytic nodule in the left kidney which does not have the appearance of a typical benign cyst and has slightly increased in size from the 2017 CT scan. This may be a hemorrhagic cyst but cannot exclude slow growing solid lesion such as oncocytoma. This can be resolved with ultrasound. There is a smaller benign typical benign cyst in the opposite-right kidney. There are no calculi in either kidney. No hydronephrosis. No hydroureter. 4. 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 Nevertheless, the diameter of the left common iliac artery is significantly enlarged, at 2.[address] Torrez, he reviewed the images. Feels like this is likely stone, that may have formed in the bladder. He feels that area around hte stones is clot. He will add patient in this week for stone removal. If he obstructs, cath with irrigation. discussed findings with patient and . At the end of my shift, care transitioned to Eugenia Smith with renal US pending. If not emergent pathology, plan for care as outlined by Dr. Torrez above. <Eugenia Smith NP - Last Filed: 05/01/23 17:22> Patient is a pleasant 72 year old male with c/c of hematuria. States that he noted yudith red blood in his urine today, just prior to arrival. Has history of microscopic hematuria and enlarged prostate with elevated PSA. He is typically followed by urology. He denies any pain. No CVA tenderness. Denies any fevers or chills. However, the patient also endorses cough x 1 week with the cough not improving. States that he has been trying to forcefully bring up sputum. Patient is not anticoagulated. No recent change in his medications. Past medical history also includes anxiety, BPH, OA, history of tobacco use. On exam, patient appears slightly anxious. Does have some crackles in the right lower lobe but is not having any respiratory distress symptoms. No CVA tenderness. No masses or abdominal pain. With his cough and crackles, considered pneumonia, will obtain CXR. His cough is not worsening and he is not having fevers, may be more of lingering cough that acute bacterial infection. In regard to blood, considered CA, exacerbation of his baseline hematuria, prostate issues, stone vs. other. Consulted with Jennifer Sy who follows the patient in urology, will move forward with imaging. CXR reviewed by radiologist: FINDINGS: 2 views: Heart size is normal. The mediastinum is not widened. Lungs are clear. No infiltrates nor pleural effusions. IMPRESSION: No acute pulmonary findings. Labs reviewed, no sigfncaint abnormality, waiting for UA. Going for CT after creatinine WNL. CT reviewed by radiologist: FINDINGS: VISUALIZED LUNG BASES: No nodules nor pleural effusions evident. ABDOMEN: There is no ascites. LIVER: There are few small sub cm cysts in the liver. No ominous lesions. No dilated intrahepatic ducts. No dilated intrahepatic ducts. GALLBLADDER/BILIARY: No obvious gallbladder pathology. CBD is not dilated. PANCREAS: No evidence of pancreatic mass nor dilatation of the pancreatic duct. SPLEEN: Spleen is not enlarged. No obvious intrasplenic lesions. Splenic and portal veins are patent. ADRENALS: There are no significant adrenal masses. KIDNEYS:There is a partially exophytic nodule off the posterior cortex of the left kidney which measures 1.5 x 1.4 cm. This is probably hemorrhagic cyst. It does, however, exhibits some internal enhancement. In addition, it has slightly increased in size from 2017. There are no other focal findings of significance in the kidneys with the exception of a 1 cm benign cyst in the right kidney.. No calculi. No hydronephrosis nor hydroureter.. There are few small parapelvic cysts bilaterally, more so on the left side. URETERS: There is a solitary nondilated ureter on each side. There are no significant filling defects within the renal pelves. URINARY BLADDER: There are 2 adjacent oval shape calculi in the right-side of the urinary bladder, both measuring 11 by 7 mm. They are associated with some wall thickening at this level which appears somewhat frondlike and may be neoplastic, as opposed to just local wall edema. PROSTATE GLAND: Enlarged. Measures 6.7 cm wide by 6 cm AP and indents the bladder base. No evidence of obturator adenopathy. ABDOMINAL AORTA: Abdominal aorta is not enlarged. However, there is significant arterial megaly of the iliac arteries. This is most prominent in the left common iliac artery which distally exhibits fusiform dilatation to 2.6 cm. However, this appears relatively stable when compared to CT scan of 2017. LYMPH NODES:There is no retroperitoneal nor paraaortic adenopathy. ABDOMINAL WALL: There is a fat only containing left inguinal hernia. GI: There is no evidence of bowel obstruction, free air, nor abscess. PELVIS: GI: No evidence of appendicitis.No evidence of sigmoid diverticulitis. LYMPH NODES: There is no intrapelvic nor inguinal adenopathy. REPRODUCTIVE: Enlarged prostate-see above URINARY BLADDER: Calculi and possible mass-see above OSSEOUS: There is a right hip prosthesis. There is fusion hardware in the lumbar spine. No fractures nor significant osseous lesions. IMPRESSION: 1. The main findings are in the urinary bladder, partially obscured by beam hardening artifact from the right hip prosthesis. However, in the right-side of the urinary bladder there are 2 adjacent oval-shaped calculi measuring 11 x 7 mm. There is a suggestion that these are associated with a possible bladder wall mass/possible malignancy. Urology consultation for cystoscopy recommended 2. Urinary bladder is significantly enlarged 3. There is a 1.5 x 1.4 cm partially exophytic nodule in the left kidney which d oes not have the appearance of a typical benign cyst and has slightly increased in size from the 2017 CT scan. This may be a hemorrhagic cyst but cannot exclude slow growing solid lesion such as oncocytoma. This can be resolved with ultrasound. There is a smaller benign typical benign cyst in the opposite-right kidney. There are no calculi in either kidney. No hydronephrosis. No hydroureter. 4. 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 Nevertheless, the diameter of the left common iliac artery is significantly enlarged, at 2.[address] Torrez, he reviewed the images. Feels like this is likely stone, that may have formed in the bladder. He feels that area around hte stones is clot. He will add patient in this week for stone removal. If he obstructs, cath with irrigation. discussed findings with patient and . At the end of my shift, care transitioned to [facility] with renal US pending. If not emergent pathology, plan for care as outlined by Dr. Torrez above. Patient is stable for discharge to home. Will follow-up with urology as planned. Will defer further imaging and outpatient workup to urology. Patient to be discharged home with no new services Medical Records Medical records reviewed: Yes I reviewed the patient's medical records. Imaging Data Radiologic Study: Imaging: CT Scan Radiologist's impression: Exam(s) US RENAL EXAM: US RENAL CLINICAL HISTORY: concern for abnormal cyst on CT, hematuria. TECHNIQUE: Silva scale, color and spectral Doppler were used. COMPARISON: CT ABD/PELVIS WO W CONTRAST from 10/27/2016 MR MRI - LUMBAR SPINE WO CONTRAST from 09/28/[address] ABDOMEN PELVIS WO/W from 05/01/2023 FINDINGS: Renal size in cm: Right: 10.9. Left: 10.6. Echogenicity: Normal. Hydronephrosis: No. Cyst or mass: There are simple cysts seen in the right kidney. The largest measures 9 mm. There is a 2 x 1.5 cm solid hypoechoic mass arising from the medial aspect of the left kidney. This corresponds to the CT scan finding. Nephrolithiasis: No. Other findings: None. Bladder:There are 2 urinary bladder stones present. The largest measures 1.6 x 1.4 cm. The smaller measures 1.1 x 1.4 cm. There is bladder wall thickening which may be due to chronic bladder outlet obstruction secondary to the patient's enlarged prostate gland. Ureteral jets: Right: Visualized and unremarkable. Left: Visualized and unremarkable. Prevoid vol:200 cc Postvoid vol:23 cc Prostate: 122 cc. The prostate gland is enlarged and impinges upon the base of the urinary bladder. It is heterogeneous with cystic and solid components. Renal color flow: Symmetric and within normal limits. IMPRESSION: 1. Solid 2 x 1.5 cm left renal mass. Neoplasm should be considered. An MRI without and with contrast is recommended for further evaluation. 2. Marked enlargement of the prostate gland which impinges into the urinary bladder. There is bladder wall thickening which is likely due to chronic bladder outlet obstruction. 3. Urinary bladder stones. 4. Findings were discussed with Eugenia Smith at 5:09 p.m. on 05/01/2023. HPI <NICOLE Alford - Last Filed: 05/01/23 16:36> General Date/Time Provider Initiated Documentation: 05/01/23 12:49 . Limitations to Documentation: no limitations . Information obtained by: patient, RN notes reviewed and old records reviewed . History of Present Illness 72 year old M presents to the emergency department with the chief complaint of yudith red blood in urine, described as moderate (states large amount of blood, no clots, hx of microscopic hematuria), Quality is described as other (denies any pain or discomfort), Patient started experiencing this hour(s) and it has been constant (only urinated x1 so far). No relieving factors improve symptom(s), No exacerbating factors reported . Patient notes cough; denies chest pain, diaphoresis, fever/chills, loss of appetite, malaise, nausea/vomiting and shortness of breath. Patient did receive the following treatments prior to arrival, none Related Data Home Medications Medication Instructions Recorded Confirmed sildenafil 100 mg tablet (Viagra) 100 mg PO DAILY PRN ED #10 tabs 09/13/21 05/01/23 tamsulosin 0.4 mg capsule (Flomax) 0.4 mg PO HS #90 caps 11/16/22 05/01/23 sertraline 50 mg tablet 50 mg PO DAILY #90 tabs 01/24/23 05/01/23 Previous Rx's Medication Instructions Recorded sildenafil 100 mg tablet (Viagra) 100 mg PO DAILY PRN ED #10 tabs 09/13/21 tamsulosin 0.4 mg capsule (Flomax) 0.4 mg PO HS #90 caps 11/16/22 sertraline 50 mg tablet 50 mg PO DAILY #90 tabs 01/24/23 Allergies Allergy/AdvReac Type Severity Reaction Status Date / Time atorvastatin calcium AdvReac Unknown Verified 12/22/22 12:44 [From Lipitor] smoke AdvReac Mild uri Uncoded 12/22/22 12:44 symptoms General Stated Complaint: Urinary BETHANY: 3 Review of Systems <NICOLE Alford - Last Filed: 05/01/23 16:36> Constitutional Constitutional: Reports as per HPI, Denies chills, Denies fever(s) and Denies poor appetite Cardiovascular Cardiovascular: Denies chest pain Respiratory Respiratory: Reports cough and Denies hemoptysis Gastrointestinal Gastrointestinal: Denies abdominal pain, Denies change in bowel habits, Denies nausea and Denies vomiting Genitourinary Genitourinary: Reports as per HPI, Denies testicular pain, Denies urinary frequency, Denies urinary hesitancy, Denies urinary incontinence and Denies urin sandy urgency Musculoskeletal Musculoskeletal: Reports as per HPI and Denies back pain Integumentary/Breasts Skin/Breast: Reports as per HPI and Denies rash Hematologic/Lymphatic Hematologic/Lymphatic: Denies easy bleeding and Denies easy bruising PFSH <NICOLE Alford - Last Filed: 05/01/23 16:36> All Active Problems (Updated 05/01/23 @ 15:36 by NICOLE Alford) Cyst of left kidney (Acute) Bladder calculi (Acute) Hematuria (Acute) Microscopic hematuria (Acute) Anxiety disorder (Acute) Atypical nevi (Acute) Benign prostatic hyperplasia (Acute) Elevated prostate specific antigen [PSA] (Acute 03/13/12) Generalized osteoarthrosis (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 not vaccinated Back pain of thoracolumbar region (Acute) Surgical History Appendectomy Colonoscopy - IV Sedation (07/21/16) Colonoscopy - MAC 2005;NEG H/O arthroscopy of left knee History of lumbar spinal fusion S/P total hip arthroplasty Vasectomy Family History Mother , 95 No problems noted. Father , age 97 Essential hypertension Sister No problems noted. Brother No problems noted. Maternal Grandfather No problems noted. Paternal Grandfather No problems noted. Maternal Grandmother No problems noted. 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[employer] Pets and animals: Yes Pets and animals: cat(s) Sexually active: No Do you think of yourself as: straight/heterosexual Current gender identity: male What is your relationship status?: How often do you talk on the phone with friends or family?: once per week How often do you get together with friends or relatives?: once per week How often do you attend spiritism or adventist services?: 1-3 times per year Do you belong to any clubs or organized social groups?: no Panel score (0-1 are the most socially isolated patients): 1 What type of physical activity do you participate in: walking Duration: 45-60 minutes/day Frequency: 5-6 times per week Melinda/Sabianist: Scientology Special melinda needs: No Seatbelt use: always Helmet use: No Drive intox or ride w/intox auto crane driver: No Do you feel safe at home: Yes Do you feel safe in your relationship?: Yes Exam <NICOLE Alford - Last Filed: 05/01/23 16:36> Const General: cooperative, healthy appearing, comfortable, no acute distress, well developed and well groomed Nutritional Appearance: well nourished and overweight Orientation: alert and awake Resp Effort & Inspection: normal respiratory effort and no respiratory distress Auscultation: crackles on the right in the lower lung ulloa, no rales, no rhonchi and no wheezes Cardio Rate: regular rate Rhythm: regular rhythm Heart Sounds: S1 normal and S2 normal GI Inspection: normal to inspection Palpation: soft, no hepatosplenomegaly, not firm, no guarding, not rigid and nontender Back/Spine/Pelvis Back: no CVA tenderness Skin General skin exam: no rashes or lesions noted Trauma: no lacerations or abrasions Neuro General: patient alert and patient awake Cognition: normal cognition Speech: speech normal Gait: normal gait Psych Appearance: grossly normal and well kempt Mental Status: mental status grossly normal Speech and Movement: speech and movement normal Course <NICOLE Alford - Last Filed: 05/01/23 16:36> Vital Signs Vital signs: Vital Signs Temperature 36.8 C 05/01/23 12:54 Pulse 74 05/01/23 12:54 Respiratory Rate 14 05/01/23 12:54 Blood Pressure 134/84 05/01/23 12:54 Pulse Oximetry 98 05/01/23 12:54 Temperature 36.8 C 05/01/23 12:54 Pulse 74 05/01/23 12:54 Respiratory Rate 14 05/01/23 12:54 Respiratory Effort Normal 05/01/23 12:56 Blood Pressure 134/84 05/01/23 12:54 Blood Pressure Position Sitting 05/01/23 12:54 Pulse Oximetry 98 05/01/23 12:54 Oxygen Delivery Method Room Air 05/01/23 12:54 Oxygen Flow Rate 0 05/01/23 12:54 Pain Level 0 05/01/23 12:56 Sign Out <NICOLE Alford - Last Filed: 05/01/23 16:36> Sign Out Data: Sign Out Comment: Care transitioned to [facility] with renal US pending. plan for surgery with Dr. Torrez for stone in bladder leading to hematuria. Last updated by Iris Wade PA at 05/01/23 16:15
[2023-05-01 13:25] LABS: Abs Immature Grans 0.02 10^3/uL (0.0-0.06); Absolute Basophil Count 0.06 10^3/uL (0.0-0.2); Absolute Eosinophil Count 0.18 10^3/uL (0.0-0.7); Absolute Lymphocyte Count 1.87 10^3/uL (1.2-3.4); Absolute Monocyte Count 0.41 10^3/uL (0.1-0.8); Absolute Neutrophil Count 4.45 10^3/uL (1.2-6.7); Basophils % 0.9; Eosinophils % 2.6; HCT 45.5 % (40.0-50.0); HGB 15.7 g/dL (13.5-17.5); Immature Grans % 0.3; Lymphocytes % 26.8; MCH 30.9 pg (27.0-33.0); MCHC 34.5 % (32.0-36.0); MCV 90 fL (80-95); MPV 9.8 fL (8.0-11.0); Monocytes % 5.9; Neutrophils % 63.5; Platelet Count 181 10^3/uL (130-400); RBC 5.08 10^6/uL (4.36-5.78); RDW 12.3 % (11.8-14.1); RDW-SD 40.6 fL; WBC 6.99 10^3/uL (4.4-10.8)
[2023-05-01 13:56] LABS: ALT 30 U/L (16-63); AST 23 U/L (15-37); Albumin 3.7 g/dL (3.4-5.0); Alkaline Phosphatase 138 U/L (46-116); Anion Gap 6.1 mmol/L (3-11); BUN 27 mg/dL (7-18); Bilirubin, Total 0.8 mg/dL (0.2-1.0); CO2 30.9 mmol/L (21.0-32.0); CREATININE 1.1 mg/dL (0.70-1.30); Calcium 8.8 mg/dL (8.5-10.1); Chloride 105 mmol/L (98-107); Estimated GFR 71.77 (mL/min/1.73m2); Glucose 159 mg/dL (74-106); Potassium 3.9 mmol/L (3.5-5.1); Sodium 142 mmol/L (136-145); Total Protein 7.2 g/dL (6.4-8.2)
[2023-05-01] MEDS: Normal Saline - Diluent 50 ML VIAL IJ (14:22)
[2023-05-01] MEDS: Omnipaque 350 MG/ML 500 ML BTL-Imaging package 100 ML IJ (14:23)
[2023-05-01] MEDS: Lactated Ringers 500 ML IV (14:27)
--- NOTE | 2023-05-01 14:35 | DI.CT_ITS ---
Exam(s) CT ABDOMEN PELVIS WO/W EXAM: CT ABDOMEN PELVIS WO/W CLINICAL HISTORY: yudith hematuria. TECHNIQUE: Imaging Protocol: Axial computed tomography images with coronal and sagittal reformatted images were created and reviewed CONTRAST MATERIAL: Intravenous: Omnipaque-350 100cc Oral: None COMPARISON: CT ABD/PELVIS WO W CONTRAST from 10/27/2016 FINDINGS: VISUALIZED LUNG BASES: No nodules nor pleural effusions evident. ABDOMEN: There is no ascites. LIVER: There are few small sub cm cysts in the liver. No ominous lesions. No dilated intrahepatic d ucts. No dilated intrahepatic ducts. GALLBLADDER/BILIARY: No obvious gallbladder pathology. CBD is not dilated. PANCREAS: No evidence of pancreatic mass nor dilatation of the pancreatic duct. SPLEEN: Spleen is not enlarged. No obvious intrasplenic lesions. Splenic and portal veins are paten t. ADRENALS: There are no significant adrenal masses. KIDNEYS:There is a partially exophytic nodule off the posterior cortex of the left kidney which measu res 1.5 x 1.4 cm. This is probably hemorrhagic cyst. It does, however, exhibits some internal enhan cement. In addition, it has slightly increased in size from 2017. There are no other focal findings of significance in the kidneys with the exception of a 1 cm benign cyst in the right kidney.. No ca lculi. No hydronephrosis nor hydroureter.. There are few small parapelvic cysts bilaterally, more so on the left side. URETERS: There is a solitary nondilated ureter on each side. There are no significant filling defect s within the renal pelves. URINARY BLADDER: There are 2 adjacent oval shape calculi in the right-side of the urinary bladder, arnav th measuring 11 by 7 mm. They are associated with some wall thickening at this level which appears s omewhat frondlike and may be neoplastic, as opposed to just local wall edema. PROSTATE GLAND: Enlarged. Measures 6.7 cm wide by 6 cm AP and indents the bladder base. No evidence of obturator adenopathy. ABDOMINAL AORTA: Abdominal aorta is not enlarged. 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 This is most prominent in the left common iliac artery which distally exhibits fu siform dilatation to 2.6 cm. However, this appears relatively stable when compared to CT scan of 201 7. LYMPH NODES:There is no retroperitoneal nor paraaortic adenopathy. ABDOMINAL WALL: There is a fat only containing left inguinal hernia. GI: There is no evidence of bowel obstruction, free air, nor abscess. PELVIS: GI: No evidence of appendicitis.No evidence of sigmoid diverticulitis. LYMPH NODES: There is no intrapelvic nor inguinal adenopathy. REPRODUCTIVE: Enlarged prostate-see above URINARY BLADDER: Calculi and possible mass-see above OSSEOUS: There is a right hip prosthesis. There is fusion hardware in the lumbar spine. No fracture s nor significant osseous lesions. IMPRESSION: 1. The main findings are in the urinary bladder, partially obscured by beam hardening artifact from t he right hip prosthesis. However, in the right-side of the urinary bladder there are 2 adjacent oval -shaped calculi measuring 11 x 7 mm. There is a suggestion that these are associated with a possible bladder wall mass/possible malignancy. Urology consultation for cystoscopy recommended 2. Urinary bladder is significantly enlarged 3. There is a 1.5 x 1.4 cm partially exophytic nodule in the left kidney which does not have the appe arance of a typical benign cyst and has slightly increased in size from the 2017 CT scan. This may b e a hemorrhagic cyst but cannot exclude slow growing solid lesion such as oncocytoma. This can be re solved with ultrasound. There is a smaller benign typical benign cyst in the opposite-right kidney. There are no calculi in either kidney. No hydronephrosis. No hydroureter. 4. 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 Nevertheless, the diameter of the left common iliac artery is significant ly enlarged, at 2.6 cm. RADIATION DOSE DELIVERED: Total DLP DATA REPOSITORY: All CT scans at this facility are submitted to the National Radiology Data Registry (NRDR) Dose Index Registry (DIR) with the [employer] (ACR). RADIATION OPTIMIZATION: All CT scans at this facility use at least one of these dose optimization te chniques: automated exposure control; mA and/or kV adjustment per patient size (includes targeted exa ms where dose is matched to clinical indication); or iterative reconstruction.
[2023-05-01 15:15] LABS: Clarity Cloudy (Clear)
--- NOTE | 2023-05-01 15:15 | DI.US_ITS ---
Exam(s) US RENAL EXAM: US RENAL CLINICAL HISTORY: concern for abnormal cyst on CT, hematuria. TECHNIQUE: Silva scale, color and spectral Doppler were used. COMPARISON: CT ABD/PELVIS WO W CONTRAST from 10/27/2016 MR MRI - LUMBAR SPINE WO CONTRAST from 09/28/[address] ABDOMEN PELVIS WO/W from 05/01/2023 FINDINGS: Renal size in cm: Right: 10.9. Left: 10.6. Echogenicity: Normal. Hydronephrosis: No. Cyst or mass: There are simple cysts seen in the right kidney. The largest measures 9 mm. There is a 2 x 1.5 cm solid hypoechoic mass arising from the medial aspect of the left kidney. This correspon ds to the CT scan finding. Nephrolithiasis: No. Other findings: None. Bladder:There are 2 urinary bladder stones present. The largest measures 1.6 x 1.4 cm. The smaller measures 1.1 x 1.4 cm. There is bladder wall thickening which may be due to chronic bladder outlet o bstruction secondary to the patient's enlarged prostate gland. Ureteral jets: Right: Visualized and unremarkable. Left: Visualized and unremarkable. Prevoid vol:200 cc Postvoid vol:23 cc Prostate: 122 cc. The prostate gland is enlarged and impinges upon the base of the urinary bladder. It is heterogeneous with cystic and solid components. Renal color flow: Symmetric and within normal limits. IMPRESSION: 1. Solid 2 x 1.5 cm left renal mass. Neoplasm should be considered. An MRI without and with contras t is recommended for further evaluation. 2. Marked enlargement of the prostate gland which impinges into the urinary bladder. There is bladde r wall thickening which is likely due to chronic bladder outlet obstruction. 3. Urinary bladder stones. 4. Findings were discussed with Eugenia Smith at 5:09 p.m. on 05/01/2023. DATA REPOSITORY:
[2023-05-01 15:16] LABS: Bilirubin Color Interference (Negative); Blood Color Interference (Negative); Glucose Color Interference mg/dL (Negative); Ketones Color Interference mg/dL (Negative); Leukocyte Esterase Color Interference (Negative); Nitrite Color Interference (Negative); Urobilinogen Color Interference mg/dL (Up to 0.2)
[2023-05-01 15:21] LABS: C & S Indicated? Yes; RBC >50 HPF (0-2)
--- NOTE | 2023-05-01 15:33 | NUR.NOTE ---
Kayla from [facility] called at 1530, stated pt was put on surgery schedule for . Day surgery will call tomorrow for pre op instructions. Nursing Note:
== END 2023-05-01 17:25 | disposition home or self-care (01) ==
PROVIDERS: Physician Assistant; Emergency Provider Nurse Practitioner Acute Care; PCP Nurse Practitioner Family
DX: R31.9 Hematuria, unspecified (principal); N21.0 Calculus in bladder; N28.1 Cyst of kidney, acquired; N40.0 Benign prostatic hyperplasia without lower urinary tract symptoms; Z98.1 Arthrodesis status
CPT/HCPCS: 76770; 80053; 87426; 96360; 99285; 71046; 74178; 81003; 81015; 85025; 87086; 99284

== ENCOUNTER 2023-05-03 06:10 | Day surgery (SDC) | payer OTHER, SELFPAY ==
[2023-05-03] VITALS (10 sets, daily range): BP systolic 97–137; BP diastolic 60–90; PULSE 62–83; RESP 13–17; TEMP 36.3–36.7; O2SAT 93–97; BMI 35.4
--- NOTE | 2023-05-03 06:52 | HPE_ITS ---
Date of service: 05/03/23 Time of Service: 06:52 Assessment and Plan Assessment and plan (1) Bladder calculi: Status: Acute Assessment and plan: We will move ahead with cystoscopy, clot evacuation, holmium laser lithotripsy of his bladder stones and transurethral resection of any underlying mucosal abnormality. History of Present Illness History of Present Illness Chief Complaint: Bladder stones Narrative: This is a 72-year-old gentleman who is routinely followed in our office for lower urinary tract symptoms. He recently presented to the emergency department with gross hematuria and clots. He was evaluated with a CT urogram which demonstrated 2 large stones in the bladder. There was also a filling defect which was the likely to be clot, but certainly could be a bladder mass. He presents now for cystoscopy, clot evacuation, holmium laser lithotripsy of his bladder stone and possible TUR bladder tumor. He passed some clots while he was in the emergency department, but has had no further clots in the urine. He did not go into retention. Review of Systems Narrative: No fevers or chills No vision change or dysphasia No diabetes or thyroid dysfunction Cough with no sputum production. No shortness of breath or hemoptysis No chest pain or palpitations No hepatitis, ulcers or jaundice No seizures, strokes or peripheral neuropathy No bleeding disorders or anemia No gout PFSH All Active Problems Cyst of left kidney (Acute) Bladder calculi (Acute) Hematuria (Acute) Microscopic hematuria (Acute) Anxiety disorder (Acute) Atypical nevi (Acute) Benign prostatic hyperplasia (Acute) Elevated prostate specific antigen [PSA] (Acute 03/13/12) Generalized osteoarthrosis (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 not vaccinated Back pain of thoracolumbar region (Acute) Surgical History Appendectomy Colonoscopy - IV Sedation (07/21/16) Colonoscopy - MAC 2005;NEG H/O arthroscopy of left knee History of lumbar spinal fusion S/P total hip arthroplasty Vasectomy Family History Mother , 95 No problems noted. Father , age 97 Essential hypertension Sister No problems noted. Brother No problems noted. Maternal Grandfather No problems noted. Paternal Grandfather No problems noted. Maternal Grandmother No problems noted. Paternal Grandmother Cancer Social History Smoking/Tobacco Use Status: Former Tobacco Use tobacco type: cigarettes Quit Date: 05/14/91 Second Hand Exposure: No Smoking risk assessment performed?: Yes Alcohol Intake: current Alcohol Intake frequency: a few times a week Alcohol type: beer Details: weekends only Drug use: Never Substance use type: does not use Caregiver/Support person: No Household members: spouse Housing: house Communication Needs: None Do you need help understanding health information?: Never current occupation: [employer] Pets and animals: Yes Pets and animals: cat(s) Sexually active: No Do you think of yourself as: straight/heterosexual Current gender identity: male What is your relationship status?: How often do you talk on the phone with friends or family?: once per week How often do you get together with friends or relatives?: once per week How often do you attend gnosticist or hoahaoism services?: 1-3 times per year Do you belong to any clubs or organized social groups?: no Panel score (0-1 are the most socially isolated patients): 1 What type of physical activity do you participate in: walking Duration: 45-60 minutes/day Frequency: 5-6 times per week Melinda/Gnosticist: Sikh Special melinda needs: No Seatbelt use: always Helmet use: No Drive intox or ride w/intox 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: No Do you feel safe at home: Yes Additional Social history: unable to assess privately Meds Allergies and Home Medications Allergies Allergy/AdvReac Type Severity Reaction Status Date / Time atorvastatin calcium AdvReac Unknown Verified 05/03/23 06:39 [From Lipitor] smoke AdvReac Mild uri Uncoded 05/03/23 06:39 symptoms Home Medications Medication Instructions Recorded Confirmed Type sildenafil 100 mg tablet (Viagra) 100 mg PO DAILY PRN ED #10 tabs 09/13/21 05/03/23 Rx tamsulosin 0.4 mg capsule (Flomax) 0.4 mg PO HS #90 caps 11/16/22 05/03/23 Rx sertraline 50 mg tablet 50 mg PO DAILY #90 tabs 01/24/23 05/03/23 Rx cetirizine 10 mg tablet (All Day 10 mg PO DAILY PRN 05/03/23 05/03/23 History Allergy (cetirizine)) Exam Const General: cooperative Neck Neck: supple Resp Effort & Inspection: normal respiratory effort Auscultation: clear to auscultation bilaterally Cardio Rate: regular rate Rhythm: regular rhythm GI Palpation: soft and no masses Neuro General: patient alert, patient awake and patient oriented x3 Time Spent Time spent with Patient: <40 minutes Time was spent: other
[2023-05-03] MEDS: Lactated Ringers 1,000 ML 80 ML IV (07:20)
--- NOTE | 2023-05-03 07:22 | ANES.PREOP_ITS ---
General Info Date of Service Date Performed: 05/03/23 Height: 5 ft 7 in Weight: 102.7 kg Body Mass Index (BMI): 35.4 Surgical Procedure: Operation Date: 05/03/23 07:40 Proposed Procedure Side Surgeon p Cystoscopy/Holmium Laser Lithotripsy Kel Torrez MD s Possible Transurethral Resection Bladder Tumor Kel Torrez MD Meds Allergies and Home Medications Allergies Allergy/AdvReac Type Severity Reaction Status Date / Time atorvastatin calcium AdvReac Unknown Verified 05/03/23 06:39 [From Lipitor] smoke AdvReac Mild uri Uncoded 05/03/23 06:39 symptoms Home Medication Medication Instructions Recorded sildenafil 100 mg tablet (Viagra) 100 mg PO DAILY PRN ED #10 tabs 09/13/21 tamsulosin 0.4 mg capsule (Flomax) 0.4 mg PO HS #90 caps 11/16/22 sertraline 50 mg tablet 50 mg PO DAILY #90 tabs 01/24/23 cetirizine 10 mg tablet (All Day 10 mg PO DAILY PRN 05/03/23 Allergy (cetirizine)) Current Visit Medications: Current Medications Generic Name Dose Route Start Last Admin Trade Name Freq PRN Reason Stop Dose Admin Ringer's Solution 1,000 mls @ 80 mls/hr 05/03/23 06:00 IV 05/03/23 23:59 INFUSION JACQUELINE Cefazolin Sodium/Dextrose 2 gm in 50 mls @ 100 mls/hr 05/03/23 06:00 Ancef Duplex IVPB 05/03/23 23:59 PREOP JACQUELINE IV Miscellaneous Supplies 1 each 05/03/23 06:00 Iv Access IV 05/03/23 23:59 DIRECTED JACQUELINE Sodium Chloride 0 ml 05/03/23 06:00 Normal Saline Flush 10 Ml Syr IV 05/03/23 23:59 PRN PRN Sodium Chloride 0 ml 05/03/23 06:00 Normal Saline 10 Ml Vial IJ 05/03/23 23:59 DIRECTED PRN Sterile Water 0 ml 05/03/23 06:00 Water,Injection,Sterile 10 Ml Vial IJ 05/03/23 23:59 DIRECTED PRN PFSH Active Problems Active Problems: Problem Status Onset Code Cyst of left kidney N28.1 Bladder calculi N21.0 Hematuria R31.9 Microscopic hematuria R31.29 Anxiety disorder F41.9 Atypical nevi D22.9 Benign prostatic hyperplasia N40.0 Elevated prostate specific antigen [PSA] 03/13/12 R97.20 Generalized osteoarthrosis M15.9 History of tobacco use Z87.891 Hyperlipidemia E78.5 Lactose intolerance E73.9 Microscopic hematuria 11/20/17 R31.29 Diastasis recti M62.08 COVID-19 U07.1 Back pain of thoracolumbar region M54.50, M54.6 Medical History Medical History Comments:: CTA posteriorly Surgical History Surgical History Appendectomy Colonoscopy - IV Sedation (07/21/16) Colonoscopy - MAC 2005;NEG H/O arthroscopy of left knee History of lumbar spinal fusion S/P total hip arthroplasty Vasectomy Tobacco Smoking/Tobacco Use Status: Former Tobacco Use Passive smoking exposure: Yes Second hand exposure: No Alcohol Alcohol Intake: current Alcohol intake frequency: a few times a week Alcohol type: beer Details: weekends only Substance Use Substance use: Never Substance use type: does not use Vital Signs and Lab Results Vital Signs Most Recent Vital Signs in EMR: Most Recent Vital Signs Temp Pulse Resp BP Pulse Ox 36.7 C 83 16 112/74 95 05/03/23 06:42 05/03/23 06:42 05/03/23 06:42 05/03/23 06:42 05/03/23 06:42 Lab Results Blood Type / Crossmatch: No Data to Display Complete Blood Count: White Blood Count 6.99 10^3/uL (4.4-10.8) 05/01/23 13:19 Red Blood Count 5.08 10^6/uL (4.36-5.78) 05/01/23 13:19 Hemoglobin 15.7 g/dL (13.5-17.5) 05/01/23 13:19 Hematocrit 45.5 % (40.0-50.0) 05/01/23 13:19 Platelet Count 181 10^3/uL (130-400) 05/01/23 13:19 Complete Metabolic Panel: Sodium 142 mmol/L (136-145) 05/01/23 13:19 Potassium 3.9 mmol/L (3.5-5.1) 05/01/23 13:19 Chloride 105 mmol/L (98-107) 05/01/23 13:19 Carbon Dioxide 30.9 mmol/L (21.0-32.0) 05/01/23 13:19 BUN 27 mg/dL (7-18) H 05/01/23 13:19 Creatinine 1.1 mg/dL (0.70-1.30) 05/01/23 13:19 Est GFR (CKD-EPI 2020) 71.77 (mL/min/1.73m2) 05/01/23 13:19 Calcium 8.8 mg/dL (8.5-10.1) 05/01/23 13:19 Albumin 3.7 g/dL (3.4-5.0) 05/01/23 13:19 Glucose 159 mg/dL (74-106) H 05/01/23 13:19 Liver Function Panel: Alanine Aminotransferase (ALT/SGPT) 30 U/L (16-63) 05/01/23 13: 19 Aspartate Amino Transf (AST/SGOT) 23 U/L (15-37) 05/01/23 13:19 Coagulation Panel: No Data to Display Cardiac Panel: No Data to Display Arterial Blood Gas: No Data to Display Venous Blood Gas: No Data to Display Pancreas Panel: No Data to Display Thyroid Panel: No Data to Display Infectious Disease: No Data to Display Blood Cultures: No Data to Display Toxicology Panel: 2 No Data to Display Anesthesia Assessment and Plan Anesthesia History Personal History: No History of Anesthesia Complications Family History: No Family History of Anesthesia Complications Exercise Tolerance Exercise Tolerance: Metabolic Equivalents>4 Pertinent Negatives Pertinent Negatives: No Symptoms of GERD, No Major Cardiovascular Symptoms or Complaints, No Major Pulmonary Symptoms or Complaints and No History of CVA/TIA Cardiac & Pulmonary Exam Cardiac Exam: Normal S1/S2 Heart Sounds Pulmonary Exam: Clear Bilateral Breath Sounds Cardiac and Pulmonary Comment:: Expiratory wheeze upper airway with deep exhalation, occ dry cough Implantable Cardiac Device Does patient have a Pacemaker or an ICD?: No Airway Exam Known Difficult Airway: No Mallampati Class: 2 Mouth Opening: Normal (> 3cm) Thyromental Distance: Greater than 3 cm Neck Range of Motion: Full ROM Neck Circumference: Normal Teeth Condition: Normal Dentition ASA Classification ASA Score: ASA 2 Emergency Case?: No NPO Status NPO Status: NPO Clears >2 hours, Solids >8 hours Anesthesia Plan Resuscitation Status: Full Code Anesthesia Technique: Spinal Anesthesia Airway Planned: Natural Airway Monitors Used: Standard Monitors Preoperative Comments:: After discussion with Dr. Torrez re: URI symptoms, plan to proceed with spinal anesthetic and minimal sedation due to urgent nature of procedure. Patient aware of plan and agrees.
[2023-05-03] MEDS: ceFAZolin 2 GM/50 ML BAG IVPB (07:50)
[2023-05-03] MEDS: Lidocaine 2% Jelly 11 ML SYR (08:14)
--- NOTE | 2023-05-03 09:01 | W.PM.DSUDISC ---
Date of service: 05/03/23 Time of Service: 09:01 Discharge Plan Disposition Patient Disposition: Home Condition: Stable Discharge Details Reason For Visit: cystoscopy Attending Provider: Kel Torrez Primary Care Provider: Daniel Mike Home Meds and New Rx's Prescriptions: New finasteride 5 mg tablet 5 mg PO DAILY Qty: 30 0RF No Action sildenafil [Viagra] 100 mg tablet 100 mg PO DAILY MDD 100 mg PRN (Reason: ED) Qty: 10 6RF tamsulosin [Flomax] 0.4 mg capsule 0.4 mg PO HS Qty: 90 3RF sertraline 50 mg tablet 50 mg PO DAILY Qty: 90 3RF cetirizine [All Day Allergy (cetirizine)] 10 mg tablet 10 mg PO DAILY PRN Discharge Instructions Additional Instructions: I have sent in a prescription for finasteride 5 mg once a day. This medication will help decrease the size of the prostate and cut down on any bleeding caused by today's surgery It is not unusual to see blood in the urine after this procedure. Please stay well-hydrated so that no clots forearm and block off your catheter Follow-up in our office early next week to have your catheter removed An additional follow-up appointment to see me in about 1 month. We will review your stone analysis at that time and talk about ways of preventing future stones. Activity:: Activity as Tolerated Diet:: As Tolerated Discharge Orders Discharge Orders: Discharge Order (Routine); Ordered 05/03/23 Ordered By: Kel Torrez DS: Diagnosis Discharge Diagnosis (1) Bladder calculi: Status: Acute
--- NOTE | 2023-05-03 09:06 | W.PM.OP ---
Date of service: 05/03/23 Time of Service: 09:07 Operative Note Operative Note DATE OF PROCEDURE: 05/03/23 PRE-OP DIAGNOSIS: Bladder stones POST-OP DIAGNOSIS: same PROCEDURE: cystoscopy, holmium laser lithotripsy of bladder stones, stone fragment extraction SURGEON: Kel Torrez ANESTHESIA TYPE: Local By Surgeon and Spinal Refer to Anesthesia Record ESTIMATED BLOOD LOSS: 100 PATHOLOGY: other (stones for chemical analysis) COMPLICATIONS: None Patient was transported to: PACU Patient's condition: stable Implants: 20 [place] Islander coude tipped irrigating remy catheter with 30 cc sterile water in balloon Indications: This is a 72-year-old gentleman who has been followed for an elevated PSA and lower urinary tract symptoms. He has a history of microscopic hematuria. He had a hematuria workup about 6 years ago and it was felt that the source of the blood was an enlarged, vascular prostate. He presented to the emergency room 48 hours ago with gross hematuria. He had a CT urogram which demonstrated 2 large stones in the bladder. He presents now for stone manipulation. Findings: two large bladder stones no bladder tumor large prostate with prominent median lobe Procedure Description: The patient was given preoperative IV antibiotics and brought to the operating room on 05/03/2023. After successful induction of spinal anesthesia, he was placed in the dorsal lithotomy position. His genitalia was prepped and draped. 2% Xylocaine jelly was then instilled into the urethra. A 22 [place]er rigid cystoscope was passed through the urethra into the bladder. The urethra and bladder were inspected using a 30 degree lens. The pendulous, bulbar and membranous urethra appeared normal with no strictures. The prostatic urethra showed diffuse enlargement with a large lateral lobes and a very prominent median lobe jetting back into the bladder. The prostate had some prominent blood vessels present on the mucosa. The bladder neck was entered and the bladder mucosa was inspected. The few small clots were visible but there was no obvious bladder tumor. 2 smooth bladder stones were then visualized. Each stone was treated with a 942 ?m holmium laser fiber. We used a power setting of 1.2 and a rate of 8. The stones fragmented quite well. The stone fragments were irrigated out, collected and sent to pathology for chemical analysis. At the completion of the procedure, they did appear to be some bleeding related to the enlarged vascular prostate. I elected to place a 20 [place]er hematuria catheter and passed the catheter through the urethra into the bladder. The catheter balloon was inflated with 30 cc of sterile water. Hand irrigation of the catheter and traction on the catheter balloon were performed and the irrigant cleared up nicely. We then started continuous bladder irrigation which will run in the recovery room. I still expect the patient will be able to go home today with a catheter in place. The patient tolerated this procedure well with no complications. He was taken to the recovery room in stable condition.
[2023-05-03] MEDS: Oxybutynin 5 MG TAB PO (10:10)
[2023-05-03] MEDS: Phenazopyridine 200 MG TAB PO (10:10)
[2023-05-03] MEDS: Finasteride 5 MG TAB PO (10:10)
--- NOTE | 2023-05-03 11:01 | W.ANESPOSTOP ---
Postoperative Evaluation Date, Time and Location Date Performed: 05/03/23 Time Performed: 10:51 Patient Location: Day Surgery Unit Vital Signs Most Recent Imported Vital Signs: Most Recent Vital Signs Temp Pulse Resp BP Pulse Ox 36.3 C L 72 16 137/86 96 05/03/23 10:38 05/03/23 10:38 05/03/23 10:38 05/03/23 10:38 05/03/23 10:38 Pain Score Most Recent Pain Score: Most Recent Pain Score Pain Level 4 05/03/23 10:38 Assessment Mental Status: Awake (Alert & Oriented to Patient Baseline) Airway and Respiratory Function: Patent airway with normal (patient baseline) respiratory exam Cardiovascular Function: Hemodynamically Stable Hydration Status: Adequately Hydrated Nausea & Vomiting: No Nausea or Vomiting Pain: Pain is Moderate or Severe Postoperative Pain Management: Pain being addressed with medication (Tylenol ordered) Peripheral Nerve Block: Patient did not receive a nerve block
[2023-05-03] MEDS: Acetaminophen 500 MG TAB 1000 MG PO (11:18)
== END 2023-05-03 13:00 | disposition home or self-care (01) ==
PROVIDERS: PCP Nurse Practitioner Family; Visit Provider Urology
PROC: (CPT 52353; principal; 2023-05-03 07:30)
DX: N21.0 Calculus in bladder (principal)
CPT/HCPCS: 52353; 82365; J0690; J2250

== ENCOUNTER → 2023-05-08 09:23 | Outpatient (BNVA) | payer OTHER, SELFPAY | PROVIDERS: PCP Nurse Practitioner Family; Referring Provider Nurse Practitioner Family; Visit Provider Nurse Practitioner Gerontology | DX: N21.0 Calculus in bladder (principal) | CPT/HCPCS: 99214 ==

== ENCOUNTER 2023-05-13 14:22 | Emergency (ER) | payer OTHER, SELFPAY ==
[2023-05-13] VITALS (16 sets, daily range): BP systolic 109–132; BP diastolic 62–81; PULSE 96–106; RESP 14–18; TEMP 37.3; O2SAT 92–98
[2023-05-13 15:18] LABS: Bilirubin Small (Negative); Blood Large (Negative); Clarity Cloudy (Clear); Glucose 100 mg/dL (Negative); Ketones Trace mg/dL (Negative); Leukocyte Esterase Large (Negative); Nitrite Positive (Negative)
--- NOTE | 2023-05-13 15:22 | ED.GENADUL_ITS ---
Discharge Plan Disposition Patient Disposition: Home Condition: Stable Discharge Details Clinical Impression: Urinary tract infection Primary Care Provider: Daniel Mike ED Provider: Aaron Juarez Home Meds and New Rx's Prescriptions: New ciprofloxacin HCl 500 mg tablet 500 mg PO BID Qty: 14 0RF Continued sildenafil [Viagra] 100 mg tablet 100 mg PO DAILY MDD 100 mg PRN (Reason: ED) Qty: 10 6RF tamsulosin [Flomax] 0.4 mg capsule 0.4 mg PO HS Qty: 90 3RF sertraline 50 mg tablet 50 mg PO DAILY Qty: 90 3RF cetirizine [All Day Allergy (cetirizine)] 10 mg tablet 10 mg PO DAILY PRN finasteride 5 mg tablet 5 mg PO DAILY Qty: 30 0RF Discharge Instructions Instructions: Urinary Tract Infection in Men (ED) Additional Instructions: Tim is open from 10am to 3pm tomorrow follow up with your urologist as scheduled if you feel more ill, have severe abdominal or back pain return to the emergency department Medical Decision Making 72 yo male who has a history of bladder calculi and had a remy catheter removed last week comes in with feeling as though he can't empty his bladder fully since then and some burning with urination and chills. He denies chest pain, dyspnea, fevers, abdominal pain, back pain. He is stable on arrival caox4 and speaking clearly in no distress. He has a soft abdomen with no tenderness and no cva tenderness. Concern for uti vs urinary retenion will proceed with cbc, cmp, ua and bladder scan. No flank pain and no cva tenderness so dout pyelo and no symptoms to suggest obstructing ureter stone less then 50cc on bladder scan and ua is consistent with uti, pt stable and feels well and has stable vitals and wants to go home, given reassuring workup and well appearance feel this is reasonable. IV ceftriaxone given and will place on cipro, advised to f/u with urology and return precautions given Differential Diagnosis Differential Diagnosis: uti, urinary retention Medical Records Medical records reviewed: Yes I reviewed the patient's medical records. Lab Data Lab results reviewed: Yes I reviewed the patient's lab results. HPI General Mode of arrival: ambulatory . Date/Time Provider Initiated Documentation: 05/13/23 15:03 . Limitations to Documentation: no limitations . Information obtained by: patient . History of Present Illness 72 year old M presents to the emergency department with the chief complaint of urinary urgency/frequency, described as moderate, Patient started experiencing this day(s) (5) and it has been constant. No relieving factors improve symptom(s), No exacerbating factors reported . Patient notes denies chest pain and weakness. Patient did receive the following treatments prior to arrival, none Related Data Home Medications Medication Instructions Recorded Confirmed sildenafil 100 mg tablet (Viagra) 100 mg PO DAILY PRN ED #10 tabs 09/13/21 05/13/23 tamsulosin 0.4 mg capsule (Flomax) 0.4 mg PO HS #90 caps 11/16/22 05/13/23 sertraline 50 mg tablet 50 mg PO DAILY #90 tabs 01/24/23 05/13/23 cetirizine 10 mg tablet (All Day 10 mg PO DAILY PRN 05/03/23 05/13/23 Allergy (cetirizine)) finasteride 5 mg tablet 5 mg PO DAILY #30 tabs 05/03/23 05/13/23 ciprofloxacin HCl 500 mg tablet 500 mg PO BID #14 tabs 05/13/23 Previous Rx's Medication Instructions Recorded sildenafil 100 mg tablet (Viagra) 100 mg PO DAILY PRN ED #10 tabs 09/13/21 tamsulosin 0.4 mg capsule (Flomax) 0.4 mg PO HS #90 caps 11/16/22 sertraline 50 mg tablet 50 mg PO DAILY #90 tabs 01/24/23 finasteride 5 mg tablet 5 mg PO DAILY #30 tabs 05/03/23 ciprofloxacin HCl 500 mg tablet 500 mg PO BID #14 tabs 05/13/23 Allergies Allergy/AdvReac Type Severity Reaction Status Date / Time atorvastatin calcium AdvReac Unknown Verified 05/13/23 14:51 [From Lipitor] smoke AdvReac Mild uri Uncoded 05/13/23 14:51 symptoms General Stated Complaint: Urinary BETHANY: 3 Review of Systems All systems reviewed & are unremarkable except as noted in HPI and below Constitutional Constitutional: Denies fever(s) and Denies weakness Cardiovascular Cardiovascular: Denies chest pain and Denies dyspnea Respiratory Respiratory: Denies cough and Denies dyspnea Gastrointestinal Gastrointestinal: Denies abdominal pain, Denies nausea and Denies vomiting Integumentary/Breasts Skin/Breast: Denies rash Neurologic Neurologic: Denies weakness PFSH All Active Problems (Updated 05/13/23 @ 17:07 by Aaron Juarez MD) Urinary tract infection (Acute) Cyst of left kidney (Acute) Bladder calculi (Acute) Hematuria (Acute) Microscopic hematuria (Acute) Anxiety disorder (Acute) Atypical nevi (Acute) Benign prostatic hyperplasia (Acute) Elevated prostate specific antigen [PSA] (Acute 03/13/12) Generalized osteoarthrosis (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 not vaccinated Back pain of thoracolumbar region (Acute) Surgical History Appendectomy Colonoscopy - IV Sedation (07/21/16) Colonoscopy - MAC 2005;NEG H/O arthroscopy of left knee History of lumbar spinal fusion S/P total hip arthroplasty Vasectomy Family History Mother , 95 No problems noted. Father , age 97 Essential hypertension Sister No problems noted. Brother No problems noted. Maternal Grandfather No problems noted. Paternal Grandfather No problems noted. Maternal Grandmother No problems noted. 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 [employer] Pets and animals: Yes Pets and animals: cat(s) Sexually active: No Do you think of yourself as: straight/heterosexual Current gender identity: male What is your relationship status?: How often do you talk on the phone with friends or family?: once per week How often do you get together with friends or relatives?: once per week How often do you attend judaism or orthodox services?: 1-3 times per year Do you belong to any clubs or organized social groups?: no Panel score (0-1 are the most socially isolated patients): 1 What type of physical activity do you participate in: walking Duration: 45-60 minutes/day Frequency: 5-6 times per week Melinda/Spiritism: Taoism Special melinda needs: No Seatbelt use: always Helmet use: No Drive intox or ride w/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 Do you feel safe at home: Yes Do you feel safe in your relationship?: Yes Additional Social history: unable to assess privately Exam Const General: no acute distress Orientation: alert HENMT Head: normal to inspection Ears: external ears normal General nose exam: external nose normal Mouth: moist mucous membranes Eyes General: appearance normal, both eyes and all related structures Neck Neck: normal visual inspection Resp Effort & Inspection: normal respiratory effort and able to speak in complete sentences Cardio Rate: regular rate GI Palpation: soft and nontender Skin General skin exam: no rashes or lesions noted Neuro General: patient alert and patient oriented x3 Extrem General: normal to inspection Psych Mental Status: mental status grossly normal Course Vital Signs Vital signs: Vital Signs Temperature 37.3 C 05/13/23 14:48 Pulse 106 H 05/13/23 14:48 Respiratory Rate 18 05/13/23 14:48 Blood Pressure 109/62 05/13/23 14:48 Pulse Oximetry 94 05/13/23 14:48 Temperature 37.3 C 05/13/23 14:50 Pulse 106 H 05/13/23 14:50 Respiratory Rate 18 05/13/23 14:50 Respiratory Effort Normal, Non-Labored 05/13/23 15:01 Blood Pressure 109/62 05/13/23 14:50 Blood Pressure Position Sitting 05/13/23 14:50 Pulse Oximetry 94 05/13/23 14:50 Oxygen Delivery Method Room Air 05/13/23 14:50 Oxygen Flow Rate 0 05/13/23 14:50 Pain Level 0 05/13/23 14:50 Lab/Test Results Lab/Test Results: Laboratory Tests Range/Units 05/13/23 15:05 Urine Color (Yellow) [place] Urine Clarity (Clear) Cloudy Urine pH (5-8) 5.0 Ur Specific [place] (1.005-1.025) 1.020 Urine Protein (Negative) mg/dL >=300 H Urine Ketones (Negative) mg/dL Trace H Urine Blood (Negative) Large H Urine Nitrite (Negative) Positive H Urine Bilirubin (Negative) Small H Urine Urobilinogen (Up to 0.2) mg/dL 2.0 H Ur Leukocyte Esterase (Negative) Large H Urine Glucose (Negative) mg/dL 100 H
[2023-05-13 15:28] LABS: Bacteria Moderate HPF (Negative); Epithelial Cells Negative HPF (Negative); RBC >50 HPF (0-2); WBC >50 HPF (0-5)
[2023-05-13 15:29] LABS: C & S Indicated? Yes; Casts Negative LPF (Negative); Crystals Negative HPF (Negative); Mucus Heavy (Negative)
[2023-05-13 15:44] LABS: Abs Immature Grans 0.06 10^3/uL (0.0-0.06); Absolute Basophil Count 0.08 10^3/uL (0.0-0.2); Absolute Eosinophil Count 0.14 10^3/uL (0.0-0.7); Absolute Lymphocyte Count 1.34 10^3/uL (1.2-3.4); Absolute Monocyte Count 1.49 10^3/uL (0.1-0.8); Absolute Neutrophil Count 10.85 10^3/uL (1.2-6.7); Basophils % 0.6; HCT 42.8 % (40.0-50.0); HGB 14.4 g/dL (13.5-17.5); Immature Grans % 0.4; Lymphocytes % 9.6; MCH 30.4 pg (27.0-33.0); MCHC 33.6 % (32.0-36.0); MCV 90 fL (80-95); Monocytes % 10.7; Neutrophils % 77.7; Platelet Count 296 10^3/uL (130-400); RBC 4.74 10^6/uL (4.36-5.78); RDW-SD 40.1 fL; WBC 13.97 10^3/uL (4.4-10.8)
[2023-05-13] MEDS: cefTRIAXone 2 GM/50 ML BAG IVPB (15:50)
[2023-05-13 16:17] LABS: COVID-19 PCR Negative (Negative); Influenza A PCR Negative (Negative); Influenza B PCR Negative (Negative); RSV PCR Negative (Negative)
[2023-05-13 16:21] LABS: Source Nasopharynx
[2023-05-13 16:25] LABS: ALT 28 U/L (16-63); AST 15 U/L (15-37); Albumin 3.3 g/dL (3.4-5.0); Alkaline Phosphatase 133 U/L (46-116); BUN 19 mg/dL (7-18); Bilirubin, Total 0.8 mg/dL (0.2-1.0); CREATININE 1.1 mg/dL (0.70-1.30); Calcium 9.3 mg/dL (8.5-10.1); Chloride 101 mmol/L (98-107); Estimated GFR 71.77 (mL/min/1.73m2); Glucose 101 mg/dL (74-106); Magnesium 2.1 mg/dL (1.8-2.4); Potassium 4.2 mmol/L (3.5-5.1); Sodium 139 mmol/L (136-145); Total Protein 7.7 g/dL (6.4-8.2)
--- NOTE | 2023-05-15 09:44 | NUR.NOTE ---
Accessed chart to look up whether or not on antibiotic for culture result.Nursing Note:
== END 2023-05-13 17:20 | disposition home or self-care (01) ==
PROVIDERS: Emergency Provider Emergency Medicine; PCP Nurse Practitioner Family
DX: N39.0 Urinary tract infection, site not specified (principal)
CPT/HCPCS: 80053; 87077; 87637; 96365; 99284; 81003; 81015; 83735; 85025; 87086; 87186

== ENCOUNTER → 2023-05-16 13:56 | Outpatient (BNVA) | payer OTHER, SELFPAY | PROVIDERS: PCP Nurse Practitioner Family; Referring Provider Nurse Practitioner Family; Visit Provider Nurse Practitioner Gerontology | DX: R31.9 Hematuria, unspecified (principal); N39.0 Urinary tract infection, site not specified; K59.00 Constipation, unspecified | CPT/HCPCS: 51798; 99213 ==

== ENCOUNTER 2023-05-19 16:38 | Emergency (ER) | payer OTHER, SELFPAY ==
[2023-05-19 16:41] VITALS: BP 130/90; PULSE 112; RESP 18; TEMP 36.7; O2SAT 97
[2023-05-19] MEDS: Lidocaine 2% Jelly 11 ML SYR UR (17:40)
--- NOTE | 2023-05-19 17:58 | W.ED.GENAD ---
HPI General Stated Complaint: Urinary BETHANY: 3 Date/Time Provider Initiated Documentation: 05/19/23 16:43. Limitations to Documentation: no limitations. Information obtained by: patient and old records reviewed. HPI Narrative: 72-year-old gentleman with past medical history of BPH, hematuria presents for evaluation of difficulty urinating. Patient has been having some ongoing hematuria issues and is followed by urology. He is currently on antibiotics. Recently we had a Argueta catheter, and that was removed. He has not been having issues with urination until today when symptoms restarted. He reports that they have been seeing some blood and passing a small clot, no pain or dysuria. He reports that he has a sensation that he needs to urinate, but at this time he cannot pass urine. Related Data Home Medications Medication Instructions Recorded Confirmed sildenafil 100 mg tablet (Viagra) 100 mg PO DAILY PRN ED #10 tabs 09/13/21 05/19/23 tamsulosin 0.4 mg capsule (Flomax) 0.4 mg PO HS #90 caps 11/16/22 05/19/23 sertraline 50 mg tablet 50 mg PO DAILY #90 tabs 01/24/23 05/19/23 cetirizine 10 mg tablet (All Day 10 mg PO DAILY PRN 05/03/23 05/19/23 Allergy (cetirizine)) finasteride 5 mg tablet 5 mg PO DAILY #30 tabs 05/03/23 05/19/23 ciprofloxacin HCl 500 mg tablet 500 mg PO BID #14 tabs 05/13/23 05/19/23 Previous Rx's Medication Instructions Recorded sildenafil 100 mg tablet (Viagra) 100 mg PO DAILY PRN ED #10 tabs 09/13/21 tamsulosin 0.4 mg capsule (Flomax) 0.4 mg PO HS #90 caps 11/16/22 sertraline 50 mg tablet 50 mg PO DAILY #90 tabs 01/24/23 finasteride 5 mg tablet 5 mg PO DAILY #30 tabs 05/03/23 ciprofloxacin HCl 500 mg tablet 500 mg PO BID #14 tabs 05/13/23 Allergies Allergy/AdvReac Type Severity Reaction Status Date / Time atorvastatin calcium AdvReac Unknown Verified 05/19/23 16:43 [From Lipitor] smoke AdvReac Mild uri Uncoded 05/19/23 16:43 symptoms PFSH All Active Problems (Updated 05/19/23 @ 19:23 by Moira Serrano MD) Acute on chronic urinary retention (Acute) Hematuria (Acute) Urinary tract infection (Acute) Cyst of left kidney (Acute) Bladder calculi (Acute) Hematuria (Acute) Microscopic hematuria (Acute) Anxiety disorder (Acute) Atypical nevi (Acute) Benign prostatic hyperplasia (Acute) Elevated prostate specific antigen [PSA] (Acute 03/13/12) Generalized osteoarthrosis (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 not vaccinated Back pain of thoracolumbar region (Acute) Surgical History S/P total hip arthroplasty H/O arthroscopy of left knee History of lumbar spinal fusion Vasectomy Colonoscopy - MAC 2005;NEG Colonoscopy - IV Sedation (07/21/16) Appendectomy Family History Mother , 95 No problems noted. Father , age 97 Essential hypertension Sister No problems noted. Brother No problems noted. Maternal Grandfather No problems noted. Paternal Grandfather No problems noted. Maternal Grandmother No problems noted. 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[employer] Pets and animals: Yes Pets and animals: cat(s) Sexually active: No Do you think of yourself as: straight/heterosexual Current gender identity: male What is your relationship status?: How often do you talk on the phone with friends or family?: once per week How often do you get together with friends or relatives?: once per week How often do you attend roman catholic or oriental orthodox services?: 1-3 times per year Do you belong to any clubs or organized social groups?: no Panel score (0-1 are the most socially isolated patients): 1 What type of physical activity do you participate in: walking Duration: 45-60 minutes/day Frequency: 5-6 times per week Melinda/Spiritism: Pentecostal Special melinda needs: No Seatbelt use: always Helmet use: No Drive intox or ride 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: No Do you feel safe at home: Yes Do you feel safe in your relationship?: Yes Additional Social history: unable to assess privately PAWSS Have you Been Recently Intoxicated or Drunk Within the Last 30 days?: No Have you Ever Experienced Previous Episodes of Alcohol Withdrawal?: No Have you ever Experienced Withdrawal Seizures?: No Have you ever Experienced Delirium Tremens(DT)s?: No Have you ever undergone Alcohol Rehabilitation Treatment (i.e, inpt ot outpatient treatment programs)?: No Have you ever Experienced Blackouts?: No Have you ever Combined Alcohol with other Downers within the last 90 days?: No Have you ever Combined Alcohol with any other Substance of Abuse during the last 90 days?: No Positive Blood Alcohol level on Presentation? [PCS.BAL]: No Evidence of Increased Autonomic Activity (i.e. HR>120, tremor, sweating, agitation, nausea)?: No Result: 0 Exam Narrative Exam Narrative: Review of Systems: All systems reviewed & are unremarkable except as noted in HPI and below Well-developed, no acute distress NACT PERRL, normal conjunctiva RRR Unlabored respiratory effort Nondistended abdomen , mild suprapubic tenderness Extremities w/o deformity, no cyanosis, no edema No rashes or lesions. no focal neurologic deficits Appropriate mood and affect Course Vital Signs Vital signs: Vital Signs Temperature 36.7 C 05/19/23 16:41 Pulse 112 H 05/19/23 16:41 Respiratory Rate 18 05/19/23 16:41 Blood Pressure 130/90 05/19/23 16:41 Pulse Oximetry 97 05/19/23 16:41 Temperature 36.7 C 05/19/23 16:41 Temperature Source Temporal Artery Scan 05/19/23 16:41 Pulse 112 H 05/19/23 16:41 Respiratory Rate 18 05/19/23 16:41 Respiratory Effort Normal, Non-Labored 05/19/23 16:44 Blood Pressure 130/90 05/19/23 16:41 Blood Pressure Position Sitting 05/19/23 16:41 Pulse Oximetry 97 05/19/23 16:41 Oxygen Delivery Method Room Air 05/19/23 16:41 Oxygen Flow Rate 0 05/19/23 16:41 Medical Decision Making Emergent evaluation of difficulty urinating and hematuria. Patient is currently being followed by urology for this issue. He is currently on antibiotics. He has 1 to 2 days left of his antibiotic course. Bladder scan was performed, 175 cc of urine was noted in the bladder. He was given an opportunity for spontaneous void in the emergency department, but he was unable to urinate. He reports his symptoms have worsened while waiting and his sensation of needing to go to the bathroom has increased. At this time although the patient does not want a Argueta, I advised that this is the best option for him. He agrees for Argueta catheter placement. Argueta catheter placed and irrigated without difficulty. The patient observed in the emergency department and seemed to have good free-flowing urine. Urine discolored due to Pyridium use. At the time of discharge, the patient's gentleman did have a lot of output around the Argueta catheter and became concerned, but when he sat back down, the Argueta seem to be flowing fine. Discussed catheter care. Initially the patient wanted the Argueta catheter removed but I feel that he is at higher likelihood for obstruction and retention recurrence with out Argueta catheter. I explained this and he agrees. He will have close follow-up with urology. Understands to return to the emergency department if he has any more signs of obstruction or issues with Argueta catheter Quality:SDOH Health Related Social Needs: No Data to Display Discharge Plan Disposition Patient Disposition: Home Discharge Details Clinical Impression: Hematuria, Acute on chronic urinary retention Primary Care Provider: Franc Horner ED Provider: Moira Serrano Home Meds and New Rx's Prescriptions: No Action sildenafil [Viagra] 100 mg tablet 100 mg PO DAILY MDD 100 mg PRN (Reason: ED) Qty: 10 6RF tamsulosin [Flomax] 0.4 mg capsule 0.4 mg PO HS Qty: 90 3RF sertraline 50 mg tablet 50 mg PO DAILY Qty: 90 3RF ciprofloxacin HCl 500 mg tablet 500 mg PO BID Qty: 14 0RF cetirizine [All Day Allergy (cetirizine)] 10 mg tablet 10 mg PO DAILY PRN finasteride 5 mg tablet 5 mg PO DAILY Qty: 30 0RF Discharge Instructions Instructions: Urinary Retention in Men (ED) Additional Instructions: increase water intake if you aren't draining into the bag or are having worsening pain, come back to the ED for irrigation no more pyridium follow up with urology on Sunday
[2023-05-19 18:23] LABS: Bilirubin Moderate (Negative); Blood Large (Negative); Clarity Cloudy (Clear); Glucose 100 mg/dL (Negative); Ketones Trace mg/dL (Negative); Leukocyte Esterase Negative (Negative); Nitrite Positive (Negative); pH 5.5 (5-8)
[2023-05-19 18:28] LABS: Bacteria Few HPF (Negative); C & S Indicated? Yes; Casts 0-2 Hyaline LPF (Negative); Crystals Negative HPF (Negative); Epithelial Cells Rare HPF (Negative); Mucus Moderate (Negative); RBC >50 HPF (0-2)
--- NOTE | 2023-05-19 19:25 | NUR.NOTE ---
Pt place on care management list for referral to Urology to have F/U appt on SundayMay 21 for hematuria
== END 2023-05-19 20:15 | disposition home or self-care (01) ==
PROVIDERS: Emergency Provider Emergency Medicine; PCP Nurse Practitioner Family
DX: T83.9XXA Unspecified complication of genitourinary prosthetic device, implant and graft, initial encounter (principal); R33.9 Retention of urine, unspecified; R31.9 Hematuria, unspecified
CPT/HCPCS: 51798; 99284; 81003; 81015; 87086; 99283

== ENCOUNTER 2023-05-19 23:23 | Emergency (ER) | payer OTHER, SELFPAY ==
[2023-05-19 23:29] VITALS: BP 161/85; PULSE 98; RESP 18; TEMP 36; O2SAT 96
--- NOTE | 2023-05-19 23:54 | W.ED.GENAD ---
HPI General Stated Complaint: Urinary Mode of arrival: ambulatory. BETHNAY: 4 Date/Time Provider Initiated Documentation: 05/19/23 23:27. Limitations to Documentation: no limitations. Information obtained by: patient and old records reviewed. HPI Narrative: 72yo M with urinary retention, hematuria, presenting requesting remy catheter removal. Remy placed earlier today in this ED for urinary retention. ED visit note reviewed. Patient reports leaking from the catheter tubing (not the meatus) since then and requests catheter removal. No abodminal pain. He is otherwise in his usual state of health. Related Data Home Medications Medication Instructions Recorded Confirmed sildenafil 100 mg tablet (Viagra) 100 mg PO DAILY PRN ED #10 tabs 09/13/21 05/19/23 tamsulosin 0.4 mg capsule (Flomax) 0.4 mg PO HS #90 caps 11/16/22 05/19/23 sertraline 50 mg tablet 50 mg PO DAILY #90 tabs 01/24/23 05/19/23 cetirizine 10 mg tablet (All Day 10 mg PO DAILY PRN 05/03/23 05/19/23 Allergy (cetirizine)) finasteride 5 mg tablet 5 mg PO DAILY #30 tabs 05/03/23 05/19/23 ciprofloxacin HCl 500 mg tablet 500 mg PO BID #14 tabs 05/13/23 05/19/23 Previous Rx's Medication Instructions Recorded sildenafil 100 mg tablet (Viagra) 100 mg PO DAILY PRN ED #10 tabs 09/13/21 tamsulosin 0.4 mg capsule (Flomax) 0.4 mg PO HS #90 caps 11/16/22 sertraline 50 mg tablet 50 mg PO DAILY #90 tabs 01/24/23 finasteride 5 mg tablet 5 mg PO DAILY #30 tabs 05/03/23 ciprofloxacin HCl 500 mg tablet 500 mg PO BID #14 tabs 05/13/23 Allergies Allergy/AdvReac Type Severity Reaction Status Date / Time atorvastatin calcium AdvReac Unknown Verified 05/19/23 16:43 [From Lipitor] smoke AdvReac Mild uri Uncoded 05/19/23 16:43 symptoms Review of Systems Narrative: see HPI PFSH All Active Problems (Updated 05/19/23 @ 23:56 by Amee Ortiz MD) Complication of Remy catheter (Acute) Acute on chronic urinary retention (Acute) Hematuria (Acute) Urinary tract infection (Acute) Cyst of left kidney (Acute) Bladder calculi (Acute) Hematuria (Acute) Microscopic hematuria (Acute) Anxiety disorder (Acute) Atypical nevi (Acute) Benign prostatic hyperplasia (Acute) Elevated prostate specific antigen [PSA] (Acute 03/13/12) Generalized osteoarthrosis (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 not vaccinated Back pain of thoracolumbar region (Acute) Surgical History S/P total hip arthroplasty H/O arthroscopy of left knee History of lumbar spinal fusion Vasectomy Colonoscopy - MAC 2005;NEG Colonoscopy - IV Sedation (07/21/16) Appendectomy Family History Mother , 95 No problems noted. Father , age 97 Essential hypertension Sister No problems noted. Brother No problems noted. Maternal Grandfather No problems noted. Paternal Grandfather No problems noted. Maternal Grandmother No problems noted. Paternal Grandmother Cancer Social History Smoking/Tobacco Use Status: Former Tobacco Use tobacco type: cigarettes Quit Date: 05/14/91 Second Hand Exposure: No Smoking risk assessment performed?: Yes Alcohol Intake: current Alcohol Intake frequency: a few times a week Alcohol type: beer Details: weekends only Drug use: Never Substance use type: does not use Caregiver/Support person: No Household members: spouse Housing: house Communication Needs: None Do you need help understanding health information?: Never current occupation: [employer] Pets and animals: Yes Pets and animals: cat(s) Sexually active: No Do you think of yourself as: straight/heterosexual Current gender identity: male What is your relationship status?: How often do you talk on the phone with friends or family?: once per week How often do you get together with friends or relatives?: once per week How often do you attend mormonism or sabianism services?: 1-3 times per year Do you belong to any clubs or organized social groups?: no Panel score (0-1 are the most socially isolated patients): 1 What type of physical activity do you participate in: walking Duration: 45-60 minutes/day Frequency: 5-6 times per week Melinda/Rastafarian: Mosque Special melinda needs: No Seatbelt use: always Helmet use: No 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 Head: Normocephalic, atraumatic Neck: Trachea midline, ?Neck supple. Cardiac: ?No cyanosis. Resp: No respiratory distress. Speaking in full sentences. . Abd: ?Soft, non-distended, nontender : ?No suprapubic tenderness. Extremities: ?No deformities.? No peripheral edema. Neurologic: GCS 15. ? Moves all extremities freely against gravity Course Vital Signs Vital signs: Vital Signs Temperature 36 C L 05/19/23 23:29 Pulse 98 H 05/19/23 23:29 Respiratory Rate 18 05/19/23 23:29 Blood Pressure 161/85 H 05/19/23 23:29 Pulse Oximetry 96 05/19/23 23:29 Temperature 36 C L 05/19/23 23:29 Pulse 98 H 05/19/23 23:29 Respiratory Rate 18 05/19/23 23:29 Respiratory Effort Normal 05/19/23 23:32 Blood Pressure 161/85 H 05/19/23 23:29 Pulse Oximetry 96 05/19/23 23:29 Oxygen Delivery Method Room Air 05/19/23 23:29 Oxygen Flow Rate 0 05/19/23 23:29 Pain Level 0 05/19/23 23:29 Medical Decision Making 72yo M with urinary retention, hematuria, presenting requesting remy catheter removal. Remy placed earlier today in this ED for urinary retention. ED visit note reviewed. Patient reports leaking from the catheter tubing (not the meatus) since then and requests catheter removal. No other new symptoms. Not willing to allow us to troubleshoot catheter. States that he wants it removed, regardless of risk for future urinary retention. Plans to followup with Dr. Torrez on Sunday. Bladder scanned, ~140cc in bladder. Remy removed at patient insistence, he refuses remy replacement. Discharged home to followup with urologyl discharge instructions and return precautions reviewed with patient who verbalized understanding. All questions were answered and he is in full agreement with the plan. Medical Records Medical records reviewed: Yes I reviewed the patient's medical records. Quality:[facility] Health Related Social Needs: No Data to Display Discharge Plan Disposition Patient Disposition: Home Condition: Good Discharge Details Chief Complaint: Urinary Clinical Impression: Complication of Remy catheter Primary Care Provider: Franc Horner ED Provider: Amee Ortiz Home Meds and New Rx's Prescriptions: No Action sildenafil [Viagra] 100 mg tablet 100 mg PO DAILY MDD 100 mg PRN (Reason: ED) Qty: 10 6RF tamsulosin [Flomax] 0.4 mg capsule 0.4 mg PO HS Qty: 90 3RF sertraline 50 mg tablet 50 mg PO DAILY Qty: 90 3RF ciprofloxacin HCl 500 mg tablet 500 mg PO BID Qty: 14 0RF cetirizine [All Day Allergy (cetirizine)] 10 mg tablet 10 mg PO DAILY PRN finasteride 5 mg tablet 5 mg PO DAILY Qty: 30 0RF Discharge Instructions Instructions: Urinary Retention in Men (ED) Additional Instructions: Call your urologist to schedule an appointment for Sunday. Return to the emergency department for new or worsening symptoms including inability to urinate, abdominal pain, or if you have any other concerns. Referrals: [facility] [Provider Group]
--- NOTE | 2023-05-20 00:22 | NUR.NOTE ---
catheter removed. cath intact. Nursing Note:
== END 2023-05-20 00:23 | disposition home or self-care (01) ==
PROVIDERS: Emergency Provider Student in an Organized Health Care Education/Training Program; PCP Nurse Practitioner Family
DX: T83.9XXA Unspecified complication of genitourinary prosthetic device, implant and graft, initial encounter (principal); R33.9 Retention of urine, unspecified; R31.9 Hematuria, unspecified
CPT/HCPCS: 51798; 99283

== ENCOUNTER → 2023-05-22 14:21 | Outpatient (BNVA) | payer OTHER, SELFPAY | PROVIDERS: PCP Nurse Practitioner Family; Referring Provider Nurse Practitioner Family; Visit Provider Nurse Practitioner Gerontology | DX: R31.9 Hematuria, unspecified (principal) | CPT/HCPCS: 99442 ==

== ENCOUNTER → 2023-06-05 10:43 | Outpatient (BNVA) | payer OTHER, SELFPAY | PROVIDERS: PCP Nurse Practitioner Family; Referring Provider Nurse Practitioner Family; Visit Provider Urology | DX: N21.0 Calculus in bladder (principal) | CPT/HCPCS: 99213 ==

== ENCOUNTER 2023-11-16 18:11 | Outpatient (CLI) | payer OTHER, SELFPAY ==
[2023-11-16 17:23] LABS: D-Dimer 621 ng/mlFEU (<500)
== END 2023-11-16 18:12 | disposition home or self-care (01) ==
LOC: LBO 18:12
PROVIDERS: PCP Nurse Practitioner Family; Visit Provider Nurse Practitioner Family
DX: M25.562 Pain in left knee (principal)
CPT/HCPCS: 36415; 85379

== ENCOUNTER → 2023-11-16 18:17 | Outpatient (CLI) | payer OTHER, SELFPAY ==
--- NOTE | 2023-11-16 16:35 | DI.RAD_ITS ---
Exam(s) XR KNEE LT 3V AP,LAT,ZEB EXAM: XR KNEE LT 3V AP,LAT,ZEB CLINICAL HISTORY: M25.562 Pain in left knee and swelling. TECHNIQUE: 2D digital imaging was performed. COMPARISON: CR,XR XR KNEE LT 3V AP,LAT,ZEB from 10/18/2021 FINDINGS: 3 views No evidence of acute fracture although there is a joint effusion noted. Also advanced degenerative c hanges patellofemoral compartment and prominent inferior pole the patella again noted. There is moderate degenerative change in the medial compartment. Mild degenerative changes in the la teral compartment. No significant osseous lesions. IMPRESSION: Osteoarthritic degenerative changes. Minimal progression when compared to prior images of October 2021. Joint effusion noted. DATA REPOSITORY: RADIATION DOSE DELIVERED:
== END ==
PROVIDERS: PCP Nurse Practitioner Family; Visit Provider Nurse Practitioner Family
DX: M25.562 Pain in left knee (principal); M17.12 Unilateral primary osteoarthritis, left knee; M25.462 Effusion, left knee
CPT/HCPCS: 73562

== ENCOUNTER → 2023-11-26 15:40 | Outpatient (CLI) | payer OTHER, SELFPAY ==
--- NOTE | 2023-11-26 15:18 | DI.RAD_ITS ---
Exam(s) XR HIP LT COMPLETE AP PELVIS EXAM: XR HIP LT COMPLETE AP PELVIS CLINICAL HISTORY: M25.552 Pain LT hip -increased pain. TECHNIQUE: 2D digital imaging was performed. Two views. COMPARISON: CR XR hip RT AP lat only from 07/31/2018 FINDINGS: BONES: No acute fracture is present. No bony destructive lesion is seen. JOINTS: No dislocation present. Moderate to severe narrowing of the left hip joint space. Prominen t periarticular spurring. The right hip prosthesis appears unchanged. SI joints are unremarkable. There is hardware at the L4-5 level. SOFT TISSUE: Normal. IMPRESSION: Moderate severe degenerative changes of the left hip. Stable appearance of right hip prosthesis. DATA REPOSITORY: RADIATION DOSE DELIVERED:
--- NOTE | 2023-11-26 15:18 | DI.RAD_ITS ---
Exam(s) XR LUMBAR SPINE COMPLETE EXAM: XR LUMBAR SPINE COMPLETE CLINICAL HISTORY: M54.50 M25.552 increased pain LBP LT hip pain. TECHNIQUE: 2D digital imaging was performed. Five views. COMPARISON: CT CT ABDOMEN PELVIS WO/W from 05/01/2023 FINDINGS: BONES: No fracture or destructive lesion. Vertebral body heights are maintained. Hardware again note d at L4-[address] with [address]. The alignment appears unchanged. A right hip prosthesis also n oted. DISKS: Intervertebral disc spaces are maintained. There is fusion across the L5-S1 disc space. The re superior disc spaces are maintained. There are prominent endplate osteophytes projecting mainly a nteriorly. SOFT TISSUE: Normal. IMPRESSION: The stable degenerative and postsurgical changes. DATA REPOSITORY: RADIATION DOSE DELIVERED:
== END ==
PROVIDERS: PCP Nurse Practitioner Family; Visit Provider Nurse Practitioner Family
DX: M54.50 Low back pain, unspecified (principal); M25.552 Pain in left hip
CPT/HCPCS: 72110; 73502

== ENCOUNTER 2024-01-16 02:45 | Outpatient (CLI) | payer OTHER, SELFPAY ==
[2024-01-16 18:41] LABS: PSA, Diagnostic 2.6 ng/mL (<=6.5)
== END 2024-01-16 02:46 | disposition home or self-care (01) ==
LOC: LBO 02:45
PROVIDERS: PCP Nurse Practitioner Family; Visit Provider Nurse Practitioner Gerontology
DX: N40.0 Benign prostatic hyperplasia without lower urinary tract symptoms (principal); R97.20 Elevated prostate specific antigen [PSA]
CPT/HCPCS: 36415; 84153

== ENCOUNTER → 2024-01-31 10:10 | Outpatient (BNVA) | payer OTHER, SELFPAY | PROVIDERS: PCP Nurse Practitioner Family; Referring Provider Nurse Practitioner Family; Visit Provider Student in an Organized Health Care Education/Training Program | DX: M17.12 Unilateral primary osteoarthritis, left knee (principal) | CPT/HCPCS: 20611; 99213; J1010 ==

== ENCOUNTER → 2024-02-18 07:56 | Outpatient (BNVA) | payer OTHER, SELFPAY | PROVIDERS: PCP Nurse Practitioner Family; Visit Provider Nurse Practitioner Gerontology | DX: N40.0 Benign prostatic hyperplasia without lower urinary tract symptoms (principal); N21.0 Calculus in bladder; R97.20 Elevated prostate specific antigen [PSA]; R31.29 Other microscopic hematuria | CPT/HCPCS: 51798; 81003; 99213 ==

== ENCOUNTER → 2024-02-21 09:21 | Outpatient (BNVA) | payer OTHER, SELFPAY | PROVIDERS: PCP Nurse Practitioner Family; Referring Provider Nurse Practitioner Family | DX: M17.12 Unilateral primary osteoarthritis, left knee (principal); M16.12 Unilateral primary osteoarthritis, left hip | CPT/HCPCS: 20610; J1010 ==

== ENCOUNTER 2024-03-18 01:21 | Outpatient (CLI) | payer OTHER, SELFPAY ==
--- NOTE | 2024-03-18 07:45 | DI.MRI_ITS ---
Exam(s) MR LUMBAR SPINE WO EXAM: MR LUMBAR SPINE WO CLINICAL HISTORY: no improvement with PT,H/O LUMBAR SPINAL FUSION, Z98.1. TECHNIQUE: Multiplanar multisequence MRI of the Lumbar spine was performed. COMPARISON: MR MRI - LUMBAR SPINE WO CONTRAST from 09/28/2017 CR XR LUMBAR SPINE COMPLETE from 11/26/2023 FINDINGS: Bones: The last intervertebral disc space is designated the L5/S1 level for the numbering purpose of this examination. There are again seen posterior spinal rods and pedicle screws at L4 and L5 with t he L4-5 disc fusion. Alignment is satisfactory. Mild degenerative endplate signal changes are presen t. There is artifact from the patient's right hip prosthesis. Cord: The conus tip ends at the L1 level. It is of normal size and signal intensity. There is again seen a sacral cyst at the S2 and S3 level compressing the nerve roots anteriorly. There is remodeli ng the posterior wall of the sacrum consistent with a longstanding presents. It measures 5.3 x 1.6 c m. T12-L1: No disc herniations or bulges are present. No central spinal canal or neural foraminal stenos is. L1-2: No disc herniations or bulges are present. No central spinal canal or neural foraminal stenosis . L2-3: No disc herniations or bulges are present. Degenerative changes of the facets are present. No significant central spinal canal stenosis is present.Mild narrowing of the neural foramen is present. L3-4: There are degenerative changes of the facets and hypertrophy of the ligamentum flavum. There i s a mild diffuse disc bulge. The findings cause severe central spinal canal stenosis. Minimal neura l foraminal stenosis is seen bilaterally. L4-5: No disc herniations or bulges are present. No significant central spinal canal stenosis. No si gnificant neural foraminal stenosis. L5-S1: No disc herniations or bulges are present. No central spinal canal or neural foraminal stenosi s. Soft tissues: The visualized SI joints and sacrum are well maintained. The paraspinal soft tissues ar e unremarkable. 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 Bilateral re nal cysts are present. There is a 1.6 cm exophytic nodule arising from the midpole of the left kidne y posteriorly. It does not meet the criteria for simple cyst. IMPRESSION: 1. At L3-L4 there are degenerative changes present which cause severe central spinal canal stenosis a nd mild bilateral neural foraminal stenosis. 2. Increase in size of the left common iliac artery aneurysm which now measures 3.1 cm. 3. 1.6 cm exophytic nodule along the posterior midpole of the left kidney. It does not meet the crit eria for simple cyst. Follow-up MRI of the kidney without and with contrast is recommended. Unexpected findings DATA REPOSITORY:
== END 2024-03-18 01:41 ==
LOC: DI 01:21
PROVIDERS: PCP Nurse Practitioner Family; Visit Provider Nurse Practitioner Family
DX: Z98.1 Arthrodesis status (principal); M48.02 Spinal stenosis, cervical region; M99.63 Osseous and subluxation stenosis of intervertebral foramina of lumbar region
CPT/HCPCS: 72148

== ENCOUNTER 2024-04-15 01:15 | Outpatient (CLI) | payer OTHER, SELFPAY ==
--- NOTE | 2024-04-15 06:45 | DI.MRI_ITS ---
Exam(s) MR ABDOMEN WO/W EXAM: MR ABDOMEN WO/W CLINICAL HISTORY: 1.6 cm lt kidney mass,n28.89,f/u abnl mri TECHNIQUE: Multiplanar multisequence MRI of the Abdomen was performed. CONTRAST MATERIAL: IV Contrast: 16 mL of Dotarem contrast administered. COMPARISON: CT ABD/PELVIS WO W CONTRAST from 10/27/2016 MR MRI - LUMBAR SPINE WO CONTRAST from 09/28/2017 US US RENAL from 05/01/[address] ABDOMEN PELVIS WO/W from 05/01/2023 FINDINGS: Lung bases: Unremarkable. Liver: 2 tiny cysts are noted. Pancreas: Unremarkable. Gallbladder and Bile Ducts: Unremarkable. Adrenals: Unremarkable. Kidneys: 1.6 centimeter solid mass noted projecting from the posterior aspect of the left kidney, in the midportion. The borders are circumscribed. There is significant enhancement following IV gadolini um. This mass has been present since 2017 where it measured 10 millimeters. It has grown slowly sinc e then. Other simple cysts are noted in each kidney. Spleen: Unremarkable. Aorta: Unremarkable. Dilatation of the left iliac artery again noted. Soft Tissues: Unremarkable. Bone: Hardware in lower lumbar spine. Sacral Tarlov cysts again noted. Lymph Nodes: No evidence of adenopathy Stomach and bowel: Unremarkable. Peritoneal cavity: Unremarkable. No evidence of ascites. IMPRESSION: Enhancing 1.6 cm solid, circumscribed mass in the posterior left kidney. The findings are consistent with neoplasm although the growth has been slow since 2017. DATA REPOSITORY:
[2024-04-15] MEDS: Gadoterate meglumine 20 ML VIAL IVP (07:48)
[2024-04-15] MEDS: Normal Saline - Diluent 50 ML VIAL 25 ML IJ (07:48)
== END 2024-04-15 01:35 ==
LOC: DI 01:15
PROVIDERS: PCP Nurse Practitioner Family; Visit Provider Nurse Practitioner Family
DX: N28.89 Other specified disorders of kidney and ureter (principal)
CPT/HCPCS: 74183

== ENCOUNTER → 2024-04-28 14:37 | Outpatient (BNVA) | payer OTHER, SELFPAY | PROVIDERS: PCP Nurse Practitioner Family; Referring Provider Nurse Practitioner Family; Visit Provider Student in an Organized Health Care Education/Training Program | DX: M17.12 Unilateral primary osteoarthritis, left knee (principal); M16.12 Unilateral primary osteoarthritis, left hip | CPT/HCPCS: 99214 ==

== ENCOUNTER 2024-05-09 01:56 | Outpatient (CLI) | payer OTHER, SELFPAY ==
[2024-05-09 11:50] LABS: HCT 43.6 % (40.0-50.0); HGB 14.9 g/dL (13.5-17.5); MCH 31.4 pg (27.0-33.0); MCHC 34.2 % (32.0-36.0); MCV 92 fL (80-95); Platelet Count 207 10^3/uL (130-400); RBC 4.75 10^6/uL (4.36-5.78); RDW 12.5 % (11.8-14.1); RDW-SD 42.1 fL; WBC 7.17 10^3/uL (4.4-10.8)
[2024-05-09 12:13] LABS: Anion Gap 7.9 mmol/L (3-11); BUN 28 mg/dL (7-18); CO2 26.1 mmol/L (21.0-32.0); CREATININE 1.1 mg/dL (0.70-1.30); Calcium 8.7 mg/dL (8.5-10.1); Chloride 108 mmol/L (98-107); Estimated GFR 71.32 (mL/min/1.73m2); Glucose 100 mg/dL (74-106); Potassium 4.2 mmol/L (3.5-5.1); Sodium 142 mmol/L (136-145)
== END 2024-05-09 01:57 | disposition home or self-care (01) ==
LOC: LBO 01:56
PROVIDERS: PCP Nurse Practitioner Family; Visit Provider Student in an Organized Health Care Education/Training Program
DX: M17.12 Unilateral primary osteoarthritis, left knee (principal); Z01.818 Encounter for other preprocedural examination
CPT/HCPCS: 36415; 80048; 85027; 99024

== ENCOUNTER 2024-05-09 10:43 | Outpatient (CLI) | payer OTHER, SELFPAY ==
--- NOTE | 2024-05-09 10:30 | DI.RAD_ITS ---
Exam(s) XR KNEE LT 1V XR STANDING ALIGNMENT EXAM: XR STANDING ALIGNMENT CLINICAL HISTORY: left knee DJD. TECHNIQUE: 2D digital imaging was performed. Standing AP views were performed from the pelvis throu gh the ankles. Lateral view of the left knee COMPARISON: CR XR KNEE LT 1V from 05/09/2024 FINDINGS: BONES: No acute fracture is present. No bony destructive lesion is seen. Hardware lower lumbar spine . Leg length discrepancy: No significant overall leg length discrepancy. JOINTS: Knees: Severe narrowing of the medial femoral tibial joint space of the left knee causing m ild varus angulation.. Severe narrowing of the left patellofemoral joint space. Prominent periartic ular spurring. The right knee joint spaces are maintained. The ankle joints are unremarkable. Hips: Right hip prosthesis. [id number] narrowing of the left hip joint space and periarticular spurring. SOFT TISSUE: Normal. IMPRESSION: Severe degenerative changes of the left knee. No significant leg length discrepancy. DATA REPOSITORY: RADIATION DOSE DELIVERED:
== END 2024-05-09 10:44 | disposition home or self-care (01) ==
LOC: DIORS 10:43
PROVIDERS: PCP Nurse Practitioner Family; Referring Provider Nurse Practitioner Family; Visit Provider Physician Assistant
DX: M17.12 Unilateral primary osteoarthritis, left knee (principal); Z01.818 Encounter for other preprocedural examination
CPT/HCPCS: 73560; 77073

== ENCOUNTER 2024-05-20 09:56 | Day surgery (SDC) | payer MEDICARE, SELFPAY ==
[2024-05-20] VITALS (19 sets, daily range): BP systolic 116–165; BP diastolic 67–88; PULSE 79–95; RESP 8–19; TEMP 36.3–36.6; O2SAT 92–97; BMI 35.9
--- NOTE | 2024-05-20 10:29 | PDOC.DSDIS_ITS ---
Date of service: 05/20/24 Discharge Plan Disposition Patient Disposition: Home Condition: Good Discharge Details Reason For Visit: Left knee DJD Attending Provider: Familia Junior Primary Care Provider: Franc Horner Home Meds and New Rx's Prescriptions: New acetaminophen 500 mg tablet 1,000 mg PO Q8H PRN Qty: 90 0RF Rx Instructions: Take two tablets up to every 8 hours as needed for pain aspirin 81 mg tablet,delayed release (DR/EC) 81 mg PO BID 30 Days Qty: 60 0RF celecoxib [Celebrex] 200 mg capsule 200 mg PO BID PRNQty: 60 0RF Rx Instructions: Take one tablet twice daily for pain and inflammation docusate sodium [Colace] 100 mg capsule 100 mg PO BID Qty: 30 0RF pantoprazole 40 mg tablet,delayed release (DR/EC) 40 mg PO DAILY Qty: 14 0RF dexamethasone 4 mg tablet 4 mg PO DAILY Qty: 2 0RF Rx Instructions: Take one tablet once daily for two days gabapentin 300 mg capsule 300 mg PO QHS Qty: 14 0RF Rx Instructions: Take one tablet at bedtime oxycodone 5 mg tablet 5 mg PO Q4H PRNQty: 18 0RF Rx Instructions: Take one tablet up to every 4 hours as needed for severe postoperative pain Continued tamsulosin [Flomax] 0.4 mg capsule 0.4 - 0.8 mg PO HS Qty: 180 3RF sildenafil [Viagra] 100 mg tablet 100 mg PO DAILY MDD 100 mg PRN (Reason: ED) Qty: 10 6RF sertraline 50 mg tablet 50 mg PO DAILY Qty: 90 3RF finasteride 5 mg tablet 5 mg PO DAILY Qty: 90 1RF (DME) [facility] Spacer See Rx Instructions .Route Qty: 1 0RF Rx Instructions: As directed albuterol sulfate 90 mcg/actuation HFA aerosol inhaler 2 puff inhalation Q6H PRN (Reason: shortness of breath or wheezing) Qty: 8.5 0RF Discontinued tramadol 50 mg tablet 50 mg PO Q8H PRN (Reason: pain) Qty: 14 0RF Discharge Instructions Additional Instructions: Total Knee Discharge Instructions Activity: The most important activity is to walk and to work on gentle motion (both flexion and extension). You should try to take short walks a few times a day. It is important that when resting you work on keeping the knee straight. Avoid putting a pillow behind the knee as this will encourage flexion. Work on range of motion exercises as provided by Physical Therapy. - Start outpatient physical therapy within 2 weeks. - You should wear the YONI hose on both legs for 2 weeks. You may remove these at night. You may also use any compression sock in place of the YONI hose. - Utilize [employer] to review exercises, see videos on exercises and obtain basic information pertaining to your surgery and your recovery. Dressing: Remove the Bud wrap by 2 days after your surgery and put on the YONI stocking given to you from the hospital. Keep the surgical dressing (underneath the BUD wrap) in place for at least one week. After the first week it may be removed and replaced with light gauze and tape or nothing. The wound and dressing may get wet after 3 days but avoid soaking the dressing or otherwise it will need to be changed. Many people prefer covering the dressing with cling wrap (saran wrap) to minimize it from getting soaked. If it gets wet, just pat dry. If it starts to peel off then it will need to be changed. Medications: - You should take Tylenol and anti-inflammatory Celebrex as your primary pain control medications. If the Celebrex is too expensive or not covered, please call the office for another alternative (Advil/Ibuprofen or Naproxen/Aleve) - You have been prescribed a stronger pain medication Oxycodone for breakthrough pain, take as needed as prescribed. - You have also been prescribed a stomach acid reduction agent Pantoprozole to help reduce stomach acid and reflux. - You have been prescribed Gabapentin to take at night for restlessness and nerve pain. - You will be taking Aspirin 81mg twice a day for DVT prevention unless instructed otherwise. - You have also been prescribed Decadron to take to control post-operative nausea and pain. You will start this tomorrow. - If you have constipation you should take Colace (which has been prescribed) or Miralax (which is available [id number]). It takes most people 3-4 days to have a bowel movement. Follow-up: 2 weeks If you have any acute concerns or questions, please do not hesitate to contact the office at [phone]. You may contact Dr. Junior with any questions after hours through the hospital at [phone] or on his cell phone at [phone]. Stand Alone Forms: Anesthesia Discharge Inst., Rufino.Nerve Block Instructions, Taylor Barnes ([facility]) Referrals: Familia Junior MD [ [facility] STAFF PHYSICIAN] - 06/02/24 2:15 pm Equipment/Supplies: Walker Activity:: Elevate Remove Dressings/Wound Care:: Do Not Remove Shower/Bathe:: Cover Diet:: As Tolerated Discharge Orders Discharge Orders: Discharge Order (Routine); Ordered 05/20/24 Ordered By: Coral Poole
[2024-05-20] MEDS: Celecoxib 200 MG CAP 400 MG PO (10:39)
[2024-05-20] MEDS: Gabapentin 300 MG CAP PO (10:39)
[2024-05-20] MEDS: Acetaminophen 500 MG TAB 1000 MG PO (10:39)
[2024-05-20] MEDS: Lactated Ringers 1,000 ML 80 ML IV (10:57)
--- NOTE | 2024-05-20 11:16 | W.ANESPRE ---
General Info Date of Service Date Performed: 05/20/24 Height: 5 ft 7 in Weight: 104.1 kg Body Mass Index (BMI): 35.9 Surgical Procedure: Operation Date: 05/20/24 12:40 Proposed Procedure Side Surgeon p Knee Total Arthroplasty, Cementless CR Left Familia Junior MD Meds Allergies and Home Medications Allergies Allergy/AdvReac Type Severity Reaction Status Date / Time atorvastatin calcium (From AdvReac Unknown unknown Verified 05/20/24 10:34 Lipitor) smoke AdvReac Mild uri Uncoded 05/20/24 10:34 symptoms Home Medication ?Medication ?Instructions ?Recorded sildenafil 100 mg tablet (Viagra) 100 mg PO DAILY PRN ED #10 tabs 09/13/21 tamsulosin 0.4 mg capsule (Flomax) 0.4 - 0.8 mg (1 - 2 x 0.4 mg) PO 06/05/23 HS #180 caps sertraline 50 mg tablet 50 mg PO DAILY #90 tabs 06/20/23 finasteride 5 mg tablet 5 mg PO DAILY #90 tabs 09/10/23 albuterol sulfate 90 mcg/actuation 2 puff inhalation Q6H PRN 03/05/24 aerosol inhaler shortness of breath or wheezing #8.5 grams inhalational spacing device #1 ea 03/05/24 ([facility] spacer) acetaminophen 500 mg tablet 1,000 mg (2 x 500 mg) PO Q8H PRN 05/20/24 pain #90 tabs aspirin 81 mg tablet,delayed 81 mg PO BID 30 days #60 tabs 05/20/24 release celecoxib 200 mg capsule (Celebrex) 200 mg PO BID PRN #60 caps 05/20/24 dexamethasone 4 mg tablet 4 mg PO DAILY #2 tabs 05/20/24 docusate sodium 100 mg capsule 100 mg PO BID #30 caps 05/20/24 (Colace) gabapentin 300 mg capsule 300 mg PO QHS #14 caps 05/20/24 oxycodone 5 mg tablet 5 mg PO Q4H PRN #18 tabs 05/20/24 pantoprazole 40 mg tablet,delayed 40 mg PO DAILY #14 tabs 05/20/24 release Current Visit Medications: Current Medications Generic Name Dose Route Start Last Admin Trade Name Freq PRN Reason Stop Dose Admin Acetaminophen 1,000 mg 05/20/24 06:00 05/20/24 10:39 Acetaminophen 500 Mg Tab PO 05/20/24 23:59 1,000 mg PREOP JACQUELINE Administration Celecoxib 400 mg 05/20/24 06:00 05/20/24 10:39 Celecoxib 200 Mg Cap PO 05/20/24 23:59 400 mg PREOP JACQUELINE Administration Gabapentin 300 mg 05/20/24 06:00 05/20/24 10:39 Gabapentin 300 Mg Cap PO 05/20/24 23:59 300 mg PREOP JACQUELINE Administration Hydromorphone HCl 0.5 mg 05/20/24 10:26 Hydromorphone 2 Mg/Ml Syr IVP 06/19/24 10:25 Q2H PRN PRN Tranexamic Acid/Sodium Chloride 1,000 mg in 100 mls @ 600 mls/hr 05/20/24 06:00 IVPB 05/20/24 23:59 PREOP JACQUELINE Ringer's Solution 1,000 mls @ 80 mls/hr 05/20/24 10:00 05/20/24 10:57 IV 06/19/24 09:59 80 mls/hr INFUSION JACQUELINE Administration Cefazolin Sodium/Dextrose 2 gm in 50 mls @ 100 mls/hr 05/20/24 10:00 Ancef Duplex IVPB 06/19/24 09:59 PREOP JACQUELINE Cefazolin Sodium/Dextrose 1 gm in 50 mls @ 100 mls/hr 05/20/24 12:00 Ancef Duplex IVPB 05/21/24 04:29 Q8H JACQUELINE IV Miscellaneous Supplies 1 each 05/20/24 06:00 Iv Access IV 05/20/24 23:59 DIRECTED JACQUELINE Oxycodone HCl 0 mg 05/20/24 10:26 Oxycodone 5 Mg Tab PO 06/19/24 10:25 Q3H PRN PRN Pain Sodium Chloride 0 ml 05/20/24 06:00 Normal Saline Flush 10 Ml Syr IV 05/20/24 23:59 PRN PRN Sodium Chloride 0 ml 05/20/24 06:00 Normal Saline 10 Ml Vial IJ 05/20/24 23:59 DIRECTED PRN Sterile Water 0 ml 05/20/24 06:00 Water,Injection,Sterile 10 Ml Vial IJ 05/20/24 23:59 DIRECTED PRN PFSH Active Problems Active Problems: Problem Status Onset Code History of total left knee replacement Acute 05/20/24 Z96.652 Iliac artery aneurysm Acute I72.3 Left kidney mass Acute N28.89 Degenerative joint disease of left hip Acute M16.12 Left knee pain Acute M25.562 Microscopic hematuria Acute R31.29 Anxiety disorder Acute F41.9 Atypical nevi Acute D22.9 Benign prostatic hyperplasia Acute N40.0 Elevated prostate specific antigen [PSA] Acute 03/13/12 R97.20 Generalized osteoarthrosis Acute M15.9 History of tobacco use Acute Z87.891 Hyperlipidemia Acute E78.5 Lactose intolerance Acute E73.9 Microscopic hematuria Acute 11/20/17 R31.29 Diastasis recti Acute M62.08 COVID-19 Acute U07.1 Back pain of thoracolumbar region Acute M54.50, M54.6 Medical History Medical History Pneumonia Bladder calculi Surgical History Surgical History History of cystoscopy (05/03/23) cystoscopy, holmium laser lithotripsy of bladder stones, stone fragment extraction S/P total hip arthroplasty Right H/O arthroscopy of left knee History of lumbar spinal fusion Vasectomy Colonoscopy - MAC 2005;NEG Colonoscopy - IV Sedation (07/21/16) Appendectomy Tobacco Smoking/Tobacco Use Status: Former Tobacco Use Passive smoking exposure: Yes Second hand exposure: No Alcohol Alcohol Intake: current Alcohol intake frequency: a few times a week Alcohol type: beer Details: weekends only Substance Use Substance use: Never Substance use type: does not use Vital Signs and Lab Results Vital Signs Most Recent Vital Signs in EMR: Most Recent Vital Signs Temp Pulse Resp BP Pulse Ox 36.4 C L 95 H 16 143/73 H 95 05/20/24 10:15 05/20/24 10:15 05/20/24 10:15 05/20/24 10:15 05/20/24 10:15 Lab Results Blood Type / Crossmatch: No Data to Display Complete Blood Count: White Blood Count 7.17 10^3/uL (4.4-10.8) 05/09/24 11:34 Red Blood Count 4.75 10^6/uL (4.36-5.78) 05/09/24 11:34 Hemoglobin 14.9 g/dL (13.5-17.5) 05/09/24 11:34 Hematocrit 43.6 % (40.0-50.0) 05/09/24 11:34 Platelet Count 207 10^3/uL (130-400) 05/09/24 11:34 Complete Metabolic Panel: Sodium 142 mmol/L (136-145) 05/09/24 11:34 Potassium 4.2 mmol/L (3.5-5.1) 05/09/24 11:34 Chloride 108 mmol/L (98-107) H 05/09/24 11:34 Carbon Dioxide 26.1 mmol/L (21.0-32.0) 05/09/24 11:34 BUN 28 mg/dL (7-18) H 05/09/24 11:34 Creatinine 1.1 mg/dL (0.70-1.30) 05/09/24 11:34 Est GFR (CKD-EPI 2020) 71.32 (mL/min/1.73m2) 05/09/24 11:34 Calcium 8.7 mg/dL (8.5-10.1) 05/09/24 11:34 Glucose 100 mg/dL (74-106) 05/09/24 11:34 Liver Function Panel: No Data to Display Coagulation Panel: No Data to Display Cardiac Panel: No Data to Display Arterial Blood Gas: No Data to Display Venous Blood Gas: No Data to Display Pancreas Panel: No Data to Display Thyroid Panel: No Data to Display Infectious Disease: No Data to Display Blood Cultures: No Data to Display Toxicology Panel: No Data to Display Anesthesia Assessment and Plan Anesthesia History Personal History: No History of Anesthesia Complications Family History: No Family History of Anesthesia Complications Exercise Tolerance Exercise Tolerance: Metabolic Equivalents>4 Pertinent Negatives Pertinent Negatives: No Symptoms of GERD, No Major Pulmonary Symptoms or Complaints and No History of CVA/TIA Cardiac & Pulmonary Exam Cardiac Exam: Normal S1/S2 Heart Sounds Pulmonary Exam: Clear Bilateral Breath Sounds Implantable Cardiac Device Does patient have a Pacemaker or an ICD?: No Airway Exam Known Difficult Airway: No Mallampati Class: 2 Mouth Opening: Normal (> 3cm) Thyromental Distance: Greater than 3 cm Neck Range of Motion: Full ROM Neck Circumference: Normal Teeth Condition: Normal Dentition ASA Classification ASA Score: ASA 2 Emergency Case?: No NPO Status NPO Status: NPO Clears >2 hours, Solids >8 hours Anesthesia Plan Resuscitation Status: Full Code Anesthesia Technique: Spinal Anesthesia Airway Planned: Natural Airway Pain Management: Surgeon and patient request nerve block Monitors Used: Standard Monitors
--- NOTE | 2024-05-20 11:51 | W.ANESNERVE ---
Nerve Block Single Injection Procedure Date and Time Date Performed: 05/20/24 Procedure Start: 11:41 Location Where Procedure Performed Procedure Location: Day Surgery Unit Reason Performed: Postoperative Analgesia Requesting Provider: Familia Junior Timeout Performed Timeout Performed: Yes Monitoring Used ECG, Blood Pressure and SpO2 Sterility Sterility: Hand Hygiene, Surgical Cap, Surgical Mask, Sterile Gloves and Chlorhexidine Sedation Given During Procedure Sedation Given (Indicate Dose Given): Versed IV Dose:: 2 mg Patient Mental Status Patient Mental Status: Sedate with meaningful communication Nerve Block 1st Nerve Block: Laterality: Left Block Type: Adductor Canal Ultrasound Image Saved?: Yes Needle / Catheter Used: 100mm SonoPlex II Local Anesthetic Bolus (Indicate Dose Given): Lidocaine used for local infiltration of skin, Injected in 3-5ml increments after negative blood aspiration and Bupivacaine 0.25% Dose:: 15 ml Additives (Indicate Dose Given): Normal Saline Ultrasound: Sterile probe cover and gel used Nerve Stimulator: Supplement to Ultrasound use and No twitch or parasthesia noted < 0.5 mA Paresthesia: None Procedure Tolerated: No Complications and Patient tolerated well Procedure Outcome: Successful Performed By: James Sam
[2024-05-20] MEDS: ceFAZolin 2 GM/50 ML BAG IVPB (12:37)
[2024-05-20] MEDS: TRANEXAMIC ACID/SOD. CHL. 1,000 MG/100 ML BAG 600 MG IVPB (12:46)
--- NOTE | 2024-05-20 15:05 | ROE_ITS ---
Operative Note Operative Note PRE-OP DIAGNOSIS: Left Knee Osteoarthritis POST-OP DIAGNOSIS: same PROCEDURE: Left Total Knee Replacement SURGEON: Familia Junior SURVEYOR HYDROGRAPHIC: Coral Poole ANESTHESIA TYPE: Spinal Refer to Anesthesia Record ESTIMATED BLOOD LOSS: 200 PATHOLOGY: none sent TOURNIQUET TIME: 0 COMPLICATIONS: None Patient was transported to: PACU Patient's condition: stable Implants: 1. Depuy Attune Cementless Cruciate Retaining Femoral Component, Size 7 2. Depuy Attune Cementless Fixed Bearing Tibial Component, Size 6 3. Depuy Attune 7x6mm CR/FB Poly 4. Depuy Attune Patellar Component, Size 38 Indications: I have seen Leonard in clinic for symptoms of knee arthritis, confirmed with radiographic findings. Leonard has exhausted nonoperative methods and was having significant limitations in daily function and desired better function and less pain. I discussed the technical details of a knee replacement. I explained the risks of the procedure to include, but not limited to, bleeding, infection, pain, stiffness, fracture, damage to nerves and vessels, damage to muscles and tendons, loosening, need for repeat procedure, blood clot and cardiopulmonary demise. Despite these risks, Leonard elected to proceed. Findings: There was significant signs of arthritis throughout the knee with large osteophytes throughout. There is notable deformity of the patella with large enthesophytes proximally and distally along with peripheral osteophytes, 2 of which were loose laterally. Procedure Description: Leonard was greeted in the preoperative holding area where the correct side was identified and marked. The consent was reviewed with the patient and signed. The history and physical was updated. All questions were answered. Preoperative medications were administered: Acetaminophen 1000mg, Celebrex 400mg, and Gabapentin 300mg. An adductor canal block was then administered by the anesthesia team in the DSU. Leonard was taken back to the operating room. A spinal anesthestic was then administered. The patient was placed into the supine position on the operating room table. Posts were placed for positioning during the procedure. All bony prominences were well padded. Prophylactic antibiotics in the form of Cefazolin were administered. 1g of Tranxemic Acid was given intravenously within 30 minutes of incision. The left leg was then prepped with Chloraprep and draped in a standard fashion with impervious stockinette. A second prep with Chloraprep was performed prior to application of Iodine impregnated skin protection. A timeout to confirm correct identity, side and site, procedure, allergies, anesthesia, and medical concerns was performed. With the knee in some flexion, a midline incision was made overlying the knee. Full thickness skin flaps were raised once the extensor mechanism was encountered. These were raised medially and laterally. Any bleeding was controlled with electrocautery. Once the extensor mechanism was fully exposed, a medial parapatellar arthrotomy was performed in a flexed position. All bleeding from the arthrotomy and the geniculate arteries was coagulated. A medial subperiosteal peel was performed with electrocautery to the midcoronal plane. Due to the significant varus deformity the entire medial tibial plateau was exposed. The fat pad was removed while keeping the patellar tendon protected. The anterior distal femur synovium was removed for later visualization. There was dense synovitis seen throughout the knee and this was also resected from the suprapatellar compartment. The ACL and PCL were resected and the anterior horn of the lateral meniscus was transected. The knee was then flexed. The patella was unable to be everted initially. Some release was performed around the patella with dense synovitis seen throughout. The synovitis was removed sharply. The patella had a large enthesophyte distally and a small rent posteriorly with tendinous attachments which was left in place. However, there is osteophyte seen medially and laterally on the patella. As a patella was slowly brought up an E version the lateral osteophyte was noted to be loose. This was debrided away and removed. With the patella everted. Large osteophytes from the tibia were removed. Large osteophytes from the femur were removed. Using a step drill, and based on preoperative templating, the femoral canal was entered. This was done with a step drill without any difficulty. The intramedullary distal femoral cut guide was inserted, set to a 5 degree valgus cut and 9mm cut thickness. The distal femoral cut guide was then held in position and pinned. With the soft tissues protected, the distal cut was performed. This was passed over a few times to ensure a planar cut. I then turned attention to the tibia. The extramedullary guide was placed onto the leg. The distal aspect was slid medial to adjust for position of center of ankle and stay in line with shaft of the tibia. Approximately 3-5 degrees of posterior slope was kept in the proximal cutting guide. The center of the guide was aligned with the PCL. The stylus was used to assess cut thickness. The medial side, most involved side, was set for a 4mm cut. This was then held in position and pinned into place with 2 additional pins and a cross pin for stability. The medial and lateral collateral ligaments were protected and the cut was performed. With this comp leted, it was assessed and noted to be of appropriate dimensions. The guide was removed. A spacer block was inserted and the knee was brought into extension. The 6mm spacer block provided full extension, without hyperextension and with stability of both the medial and lateral collateral ligaments was assessed. The pins from the femur and the tibia were then removed. The distal femur was then sized. The anterior stylus was placed onto the lateral ridge of the anterior femur. This indicated a size 7 femur. The external rotation of the guide was adjusted to 5 degrees to match the epicondy lar axis, perpendicular to Kyle?s line. The 4-in-1 cutting guide was the placed. The posterior medial femur cut was evaluated and appeared of good thickness. The spacer block was inserted underneath the cutting guide and stability was confirmed in 90 degrees of flexion. An jonathon wing was used to confirm appropriate position of the anterior cut to avoid notching. This cutting guide was ensured to be flush on the cut surface and then pinned into place with headed pins. While protecting the soft tissues, quad tendon, and collateral ligaments, the anterior and posterior cuts were performed with a saw. The central two pins were removed and the posterior and anterior chamfers were cut next. The notch-cutting guide was placed. This was pinned to lateralize the femoral component as much as possible while keeping it flush on the cut surface. This was then pinned into position. A reciprocating saw was used to make the notch cut. A rasp smoothed the cut surfaces. The medial and lateral menisci were removed. A trial femoral component was then inserted, impacted down to the cut surfaces, and the lug holes were drilled. A provisional trial tibial component was placed and the knee was brought through range of motion. There was noted to be excellent extension and flexion. There was no significant instability. The patella was tracking without thumbs. A size 6mm polyethylene component provided the best range of motion and stability with less than 2mm gapping with medial and lateral stress and full extension without significant hyperextension. The tibial cut surface was fully exposed. The tibia was then sized as a 6. The tibia had been previously marked during trialing to correspond to the center of the tibial component to help with rotation. The trial was aligned to this rocky, approximately rotated to the medial 1/3rd of the tibial tubercle. The trial was pinned into place. The tibia was prepared with a reamer and a keel punch and lug holes. The knee was then brought into extension and the patella was measured as 24mm. I was unable to use a patellar clamp given the deformity of the patella but I did freehand the patella cut flush with the bottom of the scalloped patella, leaving approximate 13 mm behind. The size 38 patella fit the best. This was oriented and then clamped into position. The lugs were drilled. The trial components were removed. The final components were opened on the back table. The periosteal and capsular tissues, especially posteriorly, around the knee were then systematically injected with a periarticular cocktail consisting of 246mg of Ropivacaine, 0.5mg of Epinephrine, 0.08mg of Clonidine, and 30mg of Ketorolac, diluted to 100cc. On the back table, with the implants opened, the cement was mixed. One batch of high viscosity cement was prepared with vacuum assistance. After the cement was ready a small amount was placed on the cut surface of the patella and the patellar button was clamped into position and held. While the cement was hardening, the cementless knee components were placed. Starting with the tibial component, the tibia was subluxed anteriorly and the lug holes of the component were lined up. The tibia was then impacted with an impactor and mallet until the tibial component was in contact with the tibia. The final polyethylene component was inserted. Then, the femoral component was inserted. The lug holes were aligned and the component was impacted into position. The knee was irrigated with Surgiphor Betadine solution. This was allowed to sit in the knee for 3 minutes and then it was irrigated out with saline. After the cement had finally cured, approximately 15min, the clamp was removed from the patella and the knee was taken through range of motion. The patella was tracking with a no-thumbs technique. The capsule was then reapproximated with a No. 1 Vicryl at multiple locations. The capsule was finally closed with a No. 2 Stratafix, barbed suture. The second dosing of 1g TXA was started. Deep tissues were then reapproximated with 0 Vicryl and 2-0 Vicryl. The skin was closed with a running 3-0 Monocryl in a subcuticular fashion. This was reinforced with skin glue. A Mepilex silver dressing was applied along with a [id number] SOLANGE wrap. A CryoCuff was applied. Leonard was transferred to the hospital bed without difficulty an suffering no apparent complication. Leonard has a good prognosis. Physical therapy will start today and without restrictions, weight-bearing as tolerated. Aspirin 81mg BID will be used for DVT prophylaxis. Date of Procedure: 05/20/24
[2024-05-20] MEDS: oxyCODONE 5 MG TAB PO (15:06)
--- NOTE | 2024-05-20 15:09 | W.ANESPOSTOP ---
Postoperative Evaluation Date, Time and Location Date Performed: 05/20/24 Time Performed: 15:10 Patient Location: Day Surgery Unit Vital Signs Most Recent Imported Vital Signs: Most Recent Vital Signs Temp Pulse Resp BP Pulse Ox 36.3 C L 79 14 128/78 97 05/20/24 14:47 05/20/24 14:36 05/20/24 14:36 05/20/24 14:36 05/20/24 14:47 Pain Score Most Recent Pain Score: Most Recent Pain Score Pain Level 4 05/20/24 14:47 Assessment Mental Status: Awake (Alert & Oriented to Patient Baseline) Airway and Respiratory Function: Patent airway with normal (patient baseline) respiratory exam Cardiovascular Function: Hemodynamically Stable Hydration Status: Adequately Hydrated Nausea & Vomiting: No Nausea or Vomiting Pain: Pain is tolerable per patient Peripheral Nerve Block: Regional nerve block not resolved at time of post operative discharge
--- NOTE | 2024-05-20 16:42 | IN_ITS ---
PT Notes Visit Reasons: Left knee DJD Physical Therapy Day Surgery Initial Evaluation Date: 05/20/2024 Referring Doctor: Dr. Sandi Gamboa PT Orders: PT CONSULT: Status post Ortho consult Precautions: WBAT left lower extremity,TEDS x 2 weeks Patient Profile/Admitting Diagnosis: Patient is 73-year-old male presenting status post elective left TKA spinal anesthesia. Postop uncomplicated although patient noted to have lightheadedness after receiving pain med in day surgery unit. PMHX: OA, iliac artery aneurysm, left kidney mass, DJD left hip, anxiety disorder, atypical Nevi, BPH, history of tobacco use, hyperlipidemia, lactose intolerance, diastases recti, history of COVID, thoracolumbar back pain Social History/Home Situation: Patient lives with his in a single level home with finished basement where patient's offices. Patient has 2 steps to enter without a rail and a flight of stairs with bilateral rails to the basement. Patient independent ambulation without device independent ADLs positive driving, shopping assists with meal prep. Equipment Owned/DME: Tub seat and hand-held shower, [facility] Subjective: Patient reports he is motivated to participate in his outpatient program so he can get back to doing the things he used to be able to do. Patient reports he wants to stay on the basement level of home this PT recommended patient to stay on first level of home initially then progressed to flight of stairs in the next few days. Objective: [] General Observation: Male semireclined on stretcher with Cryo/Cuff to left knee. present. Mental Status: Alert and oriented x 4, agreeable and motivated to participate. Eager to start outpatient PT in 2 weeks Pain: [] 2/10 left knee Vitals supine 165/80, patient reported lightheadedness after ambulating 35 feet Patient stayed in seated position for 15 minutes to perform HEP then able to resume functional mobility with blood pressure noted 123/67 with heart rate of 94 ROM: [] Right Upper Extremity: Within normal limits Left Upper Extremity: Within normal limits Right Lower Extremity: Within normal limits Left Lower Extremity: Hip and ankle within functional limits, knee 0 to 92 degrees Strength: [] Right Upper Extremity: 5/5 globally Left Upper Extremity: 5/5 globally Right Lower Extremity: 5/5 globally Left Lower Extremity: Hip flexion: 3 -/5; hip abduction: 3 -/5; hip extension: 3/5; knee extension: 3 -/5 patient able to perform quad set, patient able to sustain SLR without lag for 2 trials in shortened range; knee flexion: 2+/5 ankle DF: 3/5 ; ankle PF: 3/5 Sensation: [] Intact Bed Mobility/Transfers: Supine to sit supervision Sit to stand supervision with cues for hand placement Stand to sit supervision with cues for hand placement Bed to chair supervision with FWW Gait: Patient ambulated with FWW and contact-guard assist 75 feet with step to pattern initially demonstrating decreased knee flexion on the left during swing phase. Patient with absent heel strike despite cueing. Patient with early heel off on left. Patient with shortened step length on right. Patient able to correct for reduced knee flexion on left during swing phase with cueing and able to carryover. Patient with excessive stiffness bilateral upper extremities requiring cues to relax shoulders. Stairs: Step to pattern 3 steps utilizing walker on top step to simulate entrance into home with no railings as patient does not have other assistive device. Patient performed 6 steps with bilateral rails step to pattern with supervision Balance: [] Static Sitting: Normal Dynamic Sitting: Good Static Standing: Good Dynamic Standing: Fair plus Special Tests: [] Mobility Limitations Standardized Measure [] [facility] 6 clicks Basic Mobility Inpatient Short Form: [] Raw Score: 21 CMS Score: 28.97% Informed Consent/Education: Patient instructed in purpose of PT consult. Packet containing TKA exercise protocol has been given to patient. Therapeutic exercise 70218: Education and training on initial set of exercises x 10 reps in supine and sit that can be done at home have been completed with patient. Therapeutic activity 70377: Instruction and training in transfers with FWW initially with contact-guard and verbal cues for hand placement and safe approach to surface by end of session patient able to perform with supervision without cueing. Supervision provided due to patient intermittent reports of fogginess/lightheadedness. Patient instructed to stay on first floor of home initially then progressed to returning to lower level with flight of stairs of home where his office is located. Assessment: Patient is a 73-year-old male presents with clinical signs and symptoms consistent with current/admitting diagnoses that have resulted to mobility limitations, gait instability, generalized weakness, and impairment of motor control as demonstrated by the following impairment level findings: 1. Decreased strength to left knee major muscle groups 2. Impaired standing balance 3. Limitation of joint range of motion in left knee 4. Impaired functional activity tolerance and standing Impairments are contributing to the following functional limitations: 1. Inability to safely ambulate without assistive device 2. Increase completion time for mobility ADL performance 3. Increased fall risk 4. Difficulty performing stairs alone safely Patient is assessed as a moderate complexity based on the following: History: 73-year-old male with impairment level findings, functional limitations, and past medical history as indicated above Examination: Demonstrable impairment in strength, balance, and mobility level with underlying impairments and functional limitations as documented above Presentation: Evolving Decision Making: Moderate Goals: N/A. Plan of Care/Treatment Plan: N/A. DISCHARGE RECOMMENDATIONS: Home with home exercise program and outpatient PT as scheduled TREATMENT CODE/TIME: 26072 x 20 minutes for 1 unit, 26904 x 21 minutes for 1 unit, 09594 x 24 minutes for 2 units/[id number] Thank you for the opportunity to participate in the care of this patient. Ela Dougherty, PT [facility]
== END 2024-05-20 17:42 | disposition home or self-care (01) ==
PROVIDERS: PCP Nurse Practitioner Family; Visit Provider Student in an Organized Health Care Education/Training Program
PROC: (CPT 27447; principal; 2024-05-20 12:30)
DX: M17.12 Unilateral primary osteoarthritis, left knee (principal); G89.18 Other acute postprocedural pain; M25.562 Pain in left knee; E78.5 Hyperlipidemia, unspecified; F41.9 Anxiety disorder, unspecified
CPT/HCPCS: 27447; 64447; 97110; 97162; 97530; C1776; J0665; J0690; J1100; J2003; J2250; J2371; J2401; J2405; J2704; J3010

== ENCOUNTER 2024-06-02 15:44 | Outpatient (CLI) | payer MEDICARE, SELFPAY ==
--- NOTE | 2024-06-02 14:15 | DI.RAD_ITS ---
Exam(s) XR KNEE LT 1V XR STANDING ALIGNMENT EXAM: XR STANDING ALIGNMENT CLINICAL HISTORY: 1ST POST OP S/P L TKA. TECHNIQUE: 2D digital imaging was performed. Standing AP views were performed from the pelvis throu gh the ankles. COMPARISON: CR XR STANDING ALIGNMENT from 05/09/2024 CR XR KNEE LT 1V from 06/02/2024 FINDINGS: BONES: No acute fracture is present. No bony destructive lesion is seen. Hardware noted in the lower lumbar spine. Leg length discrepancy: No significant overall leg length discrepancy. JOINTS: Knees: A total left knee prosthesis has been placed which shows satisfactory alignment. The ankle joints are unremarkable. Hips: Stable appearance of right hip prosthesis. Stable moderate degenerative changes of the left hi p. SOFT TISSUE: Normal. IMPRESSION: Status post placement of a total left knee prosthesis. No significant leg length discrepancy. DATA REPOSITORY: RADIATION DOSE DELIVERED:
== END 2024-06-02 15:45 | disposition home or self-care (01) ==
LOC: DIORS 15:44
PROVIDERS: PCP Nurse Practitioner Family; Referring Provider Nurse Practitioner Family; Visit Provider Student in an Organized Health Care Education/Training Program
DX: Z96.652 Presence of left artificial knee joint (principal); Z47.1 Aftercare following joint replacement surgery
CPT/HCPCS: 99024; 73560; 77073

== ENCOUNTER → 2024-06-30 13:21 | Outpatient (BNVA) | payer MEDICARE, SELFPAY | PROVIDERS: PCP Nurse Practitioner Family; Visit Provider Student in an Organized Health Care Education/Training Program | DX: Z47.1 Aftercare following joint replacement surgery (principal); M16.12 Unilateral primary osteoarthritis, left hip; Z96.652 Presence of left artificial knee joint | CPT/HCPCS: 99024 ==

== ENCOUNTER 2024-07-29 15:41 | Outpatient (CLI) | payer MEDICARE, SELFPAY ==
--- NOTE | 2024-07-29 13:00 | DI.RAD_ITS ---
Exam(s) XR SHOULDER LT COMPLETE 2+V EXAM: XR SHOULDER LT COMPLETE 2+V CLINICAL HISTORY: LEFT SHOULDER PAIN. TECHNIQUE: 2D digital imaging was performed of the left shoulder. Two images were obtained. Axilla ry and Grashey views were obtained. COMPARISON: CR LEFT SHOULDER COMPLETE from 06/05/2014 FINDINGS: BONES: No acute fracture is present. No bony destructive lesion is seen. There is a small spur at the lateral aspect of the acromion. JOINTS: No dislocation present. There are moderate degenerative changes seen at the acromioclavicular joint. Mild degenerative changes are seen at the glenohumeral joint. SOFT TISSUE: Normal. IMPRESSION: Arthrosis of the left shoulder. DATA REPOSITORY: RADIATION DOSE DELIVERED:
== END 2024-07-29 15:42 | disposition home or self-care (01) ==
LOC: DIORS 15:41
PROVIDERS: PCP Nurse Practitioner Family; Referring Provider Nurse Practitioner Family; Visit Provider Student in an Organized Health Care Education/Training Program
DX: M19.012 Primary osteoarthritis, left shoulder; S46.212A Strain of muscle, fascia and tendon of other parts of biceps, left arm, initial encounter; X58.XXXA Exposure to other specified factors, initial encounter
CPT/HCPCS: 99214; 73030

== ENCOUNTER → 2024-08-11 13:43 | Outpatient (BNVA) | payer MEDICARE, SELFPAY | PROVIDERS: PCP Nurse Practitioner Family; Referring Provider Nurse Practitioner Family; Visit Provider Student in an Organized Health Care Education/Training Program | DX: Z47.1 Aftercare following joint replacement surgery (principal); Z96.652 Presence of left artificial knee joint | CPT/HCPCS: 99024 ==

== ENCOUNTER → 2024-08-15 08:00 | Outpatient (BNVA) | payer MEDICARE, SELFPAY | PROVIDERS: PCP Nurse Practitioner Family; Referring Provider Nurse Practitioner Family; Visit Provider Physician Assistant | DX: M19.012 Primary osteoarthritis, left shoulder (principal) | CPT/HCPCS: 20611; J1010 ==

== ENCOUNTER 2024-08-17 05:11 | Emergency (ER) | payer MEDICARE, SELFPAY ==
[2024-08-17] VITALS (40 sets, daily range): BP systolic 113–206; BP diastolic 68–120; PULSE 60–83; RESP 12–20; TEMP 36.6; O2SAT 94–98
--- NOTE | 2024-08-17 05:00 | RT.EKG_ITS ---
APPROVED REPORT Exam: Resting ECG Reason for Exam: chest pain Patient Location: E HR:75 bpm ECG Measurements Heart Rate 75 AXIS MS [id number] P [id number] QRSd 108 QRS -51 QT 401 T 27 QTc 449 Conclusion Atrial fibrillation...V-rate 68- 80, irreg A-activity Inferior infarct, old...Q >35mS, II III aVF Sinus at 75 with PAC Normal Interval Left [place] No acute ST changes
--- NOTE | 2024-08-17 05:12 | ED.GENADUL_ITS ---
Discharge Plan Discharge Details Chief Complaint: Chest Pain Primary Care Provider: Franc Horner ED Provider: Polo Chamberlain [place] Meds and New Rx's Prescriptions: No Action sildenafil [Viagra] 100 mg tablet 100 mg PO DAILY MDD 100 mg PRN (Reason: ED) Qty: 10 6RF (DME) [facility] Spacer See Rx Instructions .Route Qty: 1 0RF Rx Instructions: As directed tamsulosin [Flomax] 0.4 mg capsule 0.4 - 0.8 mg PO HS Qty: 180 3RF finasteride 5 mg tablet 5 mg PO DAILY Qty: 90 3RF sertraline 50 mg tablet 50 mg PO DAILY Qty: 90 3RF HPI General Mode of arrival: ambulatory . Date/Time Provider Initiated Documentation: 08/17/24 05:12 . Limitations to Documentation: no limitations . Information obtained by: patient and RN notes reviewed . HPI Narrative: Patient presents to ED with complaint of chest pain. Patient felt fine when he first woke up this morning. Once he got downstairs he started to develop epigastric and chest pressure. This is now been ongoing for almost an hour. He has not had anything like this previously. He feels a little nauseated and a little short of breath but is very anxious. There is no radiation of the pain/pressure into the back, neck or arms. Denies any lightheadedness or diaphoresis. Stopped smoking many years ago and denies any history of hypertension, hyperlipidemia, diabetes. Related Data Home Medications ?Medication ?Instructions ?Recorded ?Confirmed sildenafil 100 mg tablet (Viagra) 100 mg PO DAILY PRN ED #10 tabs 09/13/21 08/17/24 inhalational spacing device #1 ea 03/05/24 08/15/24 ([facility] spacer) finasteride 5 mg tablet 5 mg PO DAILY #90 tabs 05/26/24 08/17/24 tamsulosin 0.4 mg capsule (Flomax) 0.4 - 0.8 mg (1 - 2 x 0.4 mg) PO 05/26/24 08/17/24 HS #180 caps sertraline 50 mg tablet 50 mg PO DAILY #90 tabs 07/22/24 08/17/24 Previous Rx's ?Medication ?Instructions ?Recorded sildenafil 100 mg tablet (Viagra) 100 mg PO DAILY PRN ED #10 tabs 09/13/21 inhalational spacing device #1 ea 03/05/24 ([facility] spacer) finasteride 5 mg tablet 5 mg PO DAILY #90 tabs 05/26/24 tamsulosin 0.4 mg capsule (Flomax) 0.4 - 0.8 mg (1 - 2 x 0.4 mg) PO 05/26/24 HS #180 caps sertraline 50 mg tablet 50 mg PO DAILY #90 tabs 07/22/24 Allergies Allergy/AdvReac Type Severity Reaction Status Date / Time atorvastatin calcium (From AdvReac Unknown unknown Verified 08/17/24 05:17 Lipitor) smoke AdvReac Mild uri Uncoded 08/17/24 05:17 symptoms General BETHANY: 4 Exam Narrative Exam Narrative: Const: WDWN elderly male anxious but in no distress. VS per triage. HEENT: NC/AT. Normal facial exam. Neck: Supple. Trachea midline. Lungs: Normal respiratory effort. Lungs are clear. Cor: RRR without murmur. Good radial pulses. GI: Soft/ND. Mild epigastric tenderness. Neuro: A+O x 3. Normal speech, mentation, gait. Cranial nerves II - XII grossly intact. No gross motor or sensory deficit. Ext: No C/C/E. Medical Decision Making Patient presenting to ED with complaint of epigastric and chest pressure ongoing for 1 hour now. No previous symptoms similar to this in the past. Little short of breath and nauseated but very anxious but shaking due to the anxiety. He is a little tender in the epigastric region otherwise exam unremarkable. EKG on arrival per my read is sinus rhythm with PAC, left axis, no acute ST changes. Differential includes ACS versus GI cause such as reflux or gallbladder disease. Less likely pulmonary in nature but will obtain D-dimer given his age and inability to use PERC algorithm. Will give sublingual nitroglycerin, aspirin, IV Pepcid, Mylanta. Patient denies use of his sildenafil in months. Patient feels much improved after medications. Laboratory studies with white count of 11, normal hemoglobin and platelets. Chemistries and liver function unremarkable. Initial troponin normal. D-dimer greater than 1000 so CTA of the chest is ordered. Second troponin has just been sent. Patient be signed out to oncoming ED physician pending repeat troponins, CTA results. Lab Data Lab results reviewed: Yes I reviewed the patient's lab results. Lab results narrative: see MDM ECG Data Attestation: I personally reviewed and interpreted this ECG (s) as follows: Prior ECG tracings: not available for review Interpretation: see EKG/MDM PFSH All Active Problems Rupture of left proximal biceps tendon (Acute) Arthritis of left glenohumeral joint (Chronic) 80 Depo-medrol injection: 08/15/24 Iliac artery aneurysm (Acute) Left kidney mass (Acute) Degenerative joint disease of left hip (Acute) POCUS injection: 01/31/2024 Left knee pain (Acute) Microscopic hematuria (Acute) Anxiety disorder (Acute) Atypical nevi (Acute) Benign prostatic hyperplasia (Acute) Elevated prostate specific antigen [PSA] (Acute 03/13/12) Generalized osteoarthrosis (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 not vaccinated Back pain of thoracolumbar region (Acute) Medical History Pneumonia Bladder calculi Surgical History History of total left knee replacement (05/20/24) History of cystoscopy (05/03/23) cystoscopy, holmium laser lithotripsy of bladder stones, stone fragment extraction S/P total hip arthroplasty Right H/O arthroscopy of left knee History of lumbar spinal fusion Vasectomy Colonoscopy - MAC 2005;NEG Colonoscopy - IV Sedation (07/21/16) Appendectomy Family History Mother , 95 No problems noted. Father , age 97 Essential hypertension Sister No problems noted. Brother No problems noted. Maternal Grandfather No problems noted. Paternal Grandfather No problems noted. Maternal Grandmother No problems noted. 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 Pets and animals: Yes Pets and animals: cat(s) Sexually active: No Do you think of yourself as: straight/heterosexual Current gender identity: male What is your relationship status?: How often do you talk on the phone with friends or family?: once per week How often do you get together with friends or relatives?: once per week How often do you attend sabianist or sabianism services?: 1-3 times per year Do you belong to any clubs or organized social groups?: no Panel score (0-1 are the most socially isolated patients): 1 What type of physical activity do you participate in: walking Duration: 45-60 minutes/day Frequency: 5-6 times per week Melinda/Tenriism: Confucianism Special melinda needs: No Seatbelt use: always Helmet use: No Drive intox or ride w/intox 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
[2024-08-17] MEDS: Famotidine 20 MG/2 ML VIAL 40 MG IVP (05:31)
[2024-08-17] MEDS: Aspirin 81 MG CHEW 324 MG CH (05:31)
[2024-08-17] MEDS: Mylanta Suspension 30 ML CUP PO (05:31)
[2024-08-17 05:36] LABS: Abs Immature Grans 0.06 10^3/uL (0.0-0.06); Absolute Basophil Count 0.04 10^3/uL (0.0-0.2); Absolute Eosinophil Count 0.02 10^3/uL (0.0-0.7); Absolute Lymphocyte Count 2.04 10^3/uL (1.2-3.4); Absolute Monocyte Count 0.84 10^3/uL (0.1-0.8); Absolute Neutrophil Count 7.99 10^3/uL (1.2-6.7); Basophils % 0.4 %; Eosinophils % 0.2 %; HCT 47.9 % (40.0-50.0); Immature Grans % 0.5 %; Lymphocytes % 18.6 %; MCH 30.8 pg (27.0-33.0); MCHC 33.4 % (32.0-36.0); MCV 92 fL (80-95); MPV 10.2 fL (8.0-11.0); Monocytes % 7.6 %; Neutrophils % 72.7 %; Platelet Count 264 10^3/uL (130-400); RBC 5.19 10^6/uL (4.36-5.78); RDW-SD 41.1 fL; WBC 10.99 10^3/uL (4.4-10.8)
[2024-08-17] MEDS: nitroGLYcerin 0.4 MG TAB SL (05:39)
[2024-08-17 05:57] LABS: ALT 24 U/L (16-63); AST 15 U/L (15-37); Albumin 3.7 g/dL (3.4-5.0); Alkaline Phosphatase 130 U/L (46-116); Anion Gap 9.1 mmol/L (3-11); BUN 22 mg/dL (7-18); Bilirubin, Total 0.4 mg/dL (0.2-1.0); CO2 26.9 mmol/L (21.0-32.0); Calcium 8.9 mg/dL (8.5-10.1); Chloride 106 mmol/L (98-107); Estimated GFR 79.97 (mL/min/1.73m2); Glucose 131 mg/dL (74-106); Lipase 51 U/L (<78); Potassium 3.9 mmol/L (3.5-5.1); Sodium 142 mmol/L (136-145); Total Protein 7.6 g/dL (6.4-8.2); Troponin I 7 ng/L (<or=76)
--- NOTE | 2024-08-17 06:00 | DI.CT_ITS ---
Exam(s) CT CHEST PE CTA EXAM: CT CHEST PE CTA CLINICAL HISTORY: CP, elevated d-dimer. TECHNIQUE: Imaging Protocol: Axial CT angiography was performed with multi-slice acquisition and mu lti-planar and/or 3D reconstructions. Lung Computer Aided Detection (CAD) was utilized. CONTRAST MATERIAL: Intravenous: Omnipaque 350 contrast volume:75 mL COMPARISON: CR XR CHEST 2V PA LATERAL from 05/01/2023 FINDINGS: Tracheobronchial tree: Patent where visualized. No bronchiectasis. Pulmonary parenchyma: No consolidation or dominant measurable mass. No architectural distortion. Pulmonary Arteries: No evidence of filling defect to suggest pulmonary emboli. Mediastinum and Saige: No dominant adenopathy or fluid collection. The esophagus is unremarkable. Visualized thyroid gland: Unremarkable. Pleura: No effusion or pneumothorax. Heart: The heart is not dilated. Mild coronary artery calcification. No pericardial effusion. Aorta: Thoracic aorta non-dilated. Atherosclerotic calcification is present. Upper abdomen: Unremarkable. Soft tissues: Unremarkable. Bones: Within normal limits for the patient's age. IMPRESSION: 1. No evidence of a pulmonary embolism or thoracic aortic aneurysm. 2. No acute pulmonary process. RADIATION DOSE DELIVERED: 160.89mGy.cm Total DLP DATA REPOSITORY: All CT scans at this facility are submitted to the National Radiology Data Registry (NRDR) Dose Index Registry (DIR) with the [employer] (ACR). RADIATION OPTIMIZATION: All CT scans at this facility use at least one of these dose optimization te chniques: automated exposure control; mA and/or kV adjustment per patient size (includes targeted exa ms where dose is matched to clinical indication); or iterative reconstruction.
[2024-08-17 06:06] LABS: D-Dimer 1429 ng/mlFEU (<500)
[2024-08-17] MEDS: Omnipaque 350 MG/ML 100 ML BTL 85 ML IJ (06:59)
[2024-08-17] MEDS: Normal Saline - Diluent 50 ML VIAL IJ (07:00)
--- NOTE | 2024-08-17 07:31 | DI.VRAD_ITS ---
PROCEDURE INFORMATION: Exam: CTA Chest With Contrast Exam date and time: 08/17/2024 6:50 AM Age: 73 years old Clinical indication: Other: Cp, elevated d-dimer TECHNIQUE: Imaging protocol: Computed tomographic angiography of the chest with contrast. Exam focused on the arteries. 3D rendering (Not supervised by radiologist): MIP and/or 3D reconstructed images were created by the technologist. Contrast material: OMNIPAQUE 350; Contrast volume: 85 ml; Contrast route: INTRAVENOUS (IV); COMPARISON: CR XR CHEST 2V PA LATERAL 05/01/2023 1:30 PM FINDINGS: Pulmonary arteries: Normal. No pulmonary emboli. Aorta: Unremarkable. No aortic aneurysm. Lungs: Unremarkable. No consolidation. No masses. Pleural spaces: Unremarkable. No pneumothorax. No pleural effusion. Heart: Unremarkable. No cardiomegaly. No pericardial effusion. Lymph nodes: Unremarkable. No enlarged lymph nodes. Bones/joints: Unremarkable. No acute fracture. Soft tissues: Unremarkable. IMPRESSION: No acute findings. Dictated and Authenticated by: Darline Stringer MD. Orderin Bulmaro Cuellar MD
[2024-08-17 07:36] LABS: Troponin I 8 ng/L (<or=76)
[2024-08-17 08:52] LABS: Troponin I 7 ng/L (<or=76)
--- NOTE | 2024-08-17 09:06 | ED.PROG_ITS ---
Date of service: 08/17/24 Time of Service: 09:06 Medical Decision Making Patient signed out to me pending delta troponins and CTA. CTA read by myself and virtual radiology is negative for acute findings. He has had 3 negative troponins. He is asymptomatic currently and feels well. Given reassuring workup I feel he is stable for discharge he will follow-up with his PCP, return precautions given Lab Data Lab results reviewed: Yes I reviewed the patient's lab results. Quality:SDOH Health Related Social Needs: No Data to Display Discharge Plan Disposition Patient Disposition: Home Condition: Stable Discharge Details Clinical Impression: Chest pain Primary Care Provider: Franc Horner ED Provider: Aaron Juarez Home Meds and New Rx's Prescriptions: Continued sildenafil [Viagra] 100 mg tablet 100 mg PO DAILY MDD 100 mg PRN (Reason: ED) Qty: 10 6RF (DME) [facility] Spacer See Rx Instructions .Route Qty: 1 0RF Rx Instructions: As directed tamsulosin [Flomax] 0.4 mg capsule 0.4 - 0.8 mg PO HS Qty: 180 3RF finasteride 5 mg tablet 5 mg PO DAILY Qty: 90 3RF sertraline 50 mg tablet 50 mg PO DAILY Qty: 90 3RF Discharge Instructions Additional Instructions: Your blood work and CAT scan did not show any concerning findings at this time. Your pain could be from your stomach or esophagus, you can take a daily over-th e-counter acid biomechanical engineer such as famotidine. I would still recommend following up with your primary care provider and discuss having a stress test. If you feel more ill or have severe worsening pain or difficulty breathing return to the emergency department for reevaluation.
== END 2024-08-17 09:34 | disposition home or self-care (01) ==
PROVIDERS: Emergency Medicine; Emergency Provider Emergency Medicine; PCP Nurse Practitioner Family
DX: R07.9 Chest pain, unspecified (principal); R10.13 Epigastric pain; F41.9 Anxiety disorder, unspecified; R94.31 Abnormal electrocardiogram [ECG] [EKG]; Z98.1 Arthrodesis status; Z87.891 Personal history of nicotine dependence
CPT/HCPCS: 00123; 36415; 71275; 80053; 83690; 93005; 96374; 99285; 83735; 84484; 85025; 85379; 93010; J3490

== ENCOUNTER 2024-09-30 12:48 | Outpatient (CLI) | payer MEDICARE, SELFPAY ==
--- NOTE | 2024-09-30 12:45 | RT.EKG_ITS ---
APPROVED REPORT Exam: Resting ECG Reason for Exam: pre-op surgery Patient Location: O HR:90 bpm ECG Measurements Heart Rate 90 AXIS GA 156 P 42 QRSd 92 QRS -35 QT 354 T 4 QTc 433 Conclusion Sinus rhythm...normal P axis, V-rate 50- 99 Left axis deviation...QRS axis (-30,-90) late transition...QRS area<0 in V5/V6
== END 2024-09-30 12:49 | disposition home or self-care (01) ==
LOC: DI.CM 12:49
PROVIDERS: PCP Nurse Practitioner Family; Visit Provider Nurse Practitioner Family
DX: R06.02 Shortness of breath (principal); R94.31 Abnormal electrocardiogram [ECG] [EKG]
CPT/HCPCS: 93010

== ENCOUNTER 2024-10-03 01:39 | Outpatient (CLI) | payer MEDICARE, SELFPAY ==
[2024-10-03 11:45] LABS: HCT 47.8 % (40.0-50.0); HGB 15.7 g/dL (13.5-17.5); MCH 29.8 pg (27.0-33.0); MCHC 32.8 % (32.0-36.0); MCV 91 fL (80-95); MPV 9.9 fL (8.0-11.0); Platelet Count 216 10^3/uL (130-400); RBC 5.27 10^6/uL (4.36-5.78); RDW-SD 43.3 fL; WBC 6.76 10^3/uL (4.4-10.8)
[2024-10-03 12:12] LABS: Anion Gap 5.6 mmol/L (3-11); BUN 23 mg/dL (7-18); CO2 31.4 mmol/L (21.0-32.0); Calcium 9.3 mg/dL (8.5-10.1); Chloride 105 mmol/L (98-107); Estimated GFR 79.97 (mL/min/1.73m2); Glucose 108 mg/dL (74-106); Potassium 4.4 mmol/L (3.5-5.1); Sodium 142 mmol/L (136-145)
== END 2024-10-03 01:40 | disposition home or self-care (01) ==
LOC: LBO 01:41
PROVIDERS: PCP Nurse Practitioner Family; Visit Provider Student in an Organized Health Care Education/Training Program
DX: M16.12 Unilateral primary osteoarthritis, left hip (principal); Z01.818 Encounter for other preprocedural examination
CPT/HCPCS: 36415; 80048; 85027

== ENCOUNTER 2024-10-03 11:37 | Outpatient (CLI) | payer MEDICARE, SELFPAY ==
--- NOTE | 2024-10-03 11:23 | DI.RAD_ITS ---
Exam(s) XR PELVIS AP EXAM: XR PELVIS AP CLINICAL HISTORY: PRE OP L HIP. TECHNIQUE: 2D digital imaging was performed. Single AP view. COMPARISON: CR XR hip RT complete AP pelvis from 05/02/2018 CR XR STANDING ALIGNMENT from 06/02/2024 FINDINGS: BONES: No acute fracture is present. No bony destructive lesion is seen. Subchondral cyst superior acetabulum. JOINTS: No dislocation present. Moderate left hip joint space narrowing. Prominent spurring of the acetabulum. Mild spurring at the femoral head. Stable appearance of the right hip prosthesis. Ther e is some spurring at the inferior SI joints. SOFT TISSUE: Normal. IMPRESSION: Moderate to severe degenerative changes of the left hip. DATA REPOSITORY: RADIATION DOSE DELIVERED:
== END 2024-10-03 11:38 | disposition home or self-care (01) ==
LOC: DIORS 11:38
PROVIDERS: PCP Nurse Practitioner Family; Visit Provider Physician Assistant
DX: M16.12 Unilateral primary osteoarthritis, left hip (principal)
CPT/HCPCS: 99213; 72170

== ENCOUNTER 2024-10-08 05:56 | Day surgery (SDC) | payer MEDICARE, SELFPAY ==
[2024-10-08] VITALS (22 sets, daily range): BP systolic 78–131; BP diastolic 44–93; PULSE 53–83; RESP 8–18; TEMP 36.2–36.5; O2SAT 90–96; BMI 36.1
[2024-10-08] MEDS: Celecoxib 200 MG CAP 400 MG PO (06:40)
--- NOTE | 2024-10-08 06:40 | ANES.PREOP_ITS ---
General Info Date of Service Date Performed: 10/08/24 Height: 5 ft 7 in Weight: 104.8 kg Body Mass Index (BMI): 36.1 Surgical Procedure: Operation Date: 10/08/24 07:50 Proposed Procedure Side Surgeon p Hip Total Hip Anterior, Actis Left Familia Junior MD Meds Allergies and Home Medications Allergies Allergy/AdvReac Type Severity Reaction Status Date / Time atorvastatin calcium (From AdvReac Unknown unknown Verified 10/08/24 06:26 Lipitor) smoke AdvReac Mild uri Uncoded 10/08/24 06:26 symptoms Home Medication ?Medication ?Instructions ?Recorded inhalational spacing device #1 ea 03/05/24 ([facility] [facility] spacer) finasteride 5 mg tablet 5 mg PO DAILY #90 tabs 05/26/24 sertraline 50 mg tablet 50 mg PO DAILY #90 tabs 07/22/24 sildenafil 100 mg tablet (Viagra) 100 mg PO DAILY PRN ED #10 tabs 09/30/24 tamsulosin 0.4 mg capsule (Flomax) 0.4 - 0.8 mg PO BID 10/03/24 Current Visit Medications: Current Medications Generic Name Dose Route Start Last Admin Trade Name Freq PRN Reason Stop Dose Admin Acetaminophen 1,000 mg 10/08/24 06:00 Acetaminophen 500 Mg Tab PO 10/08/24 23:59 PREOP JACQUELINE Celecoxib 400 mg 10/08/24 06:00 Celecoxib 200 Mg Cap PO 10/08/24 23:59 PREOP JACQUELINE Ringer's Solution 1,000 mls @ 80 mls/hr 10/08/24 06:00 IV 10/08/24 23:59 INFUSION JACQUELINE Cefazolin Sodium/Dextrose 2 gm in 50 mls @ 100 mls/hr 10/08/24 06:00 Ancef Duplex IVPB 10/08/24 23:59 PREOP JACQUELINE Tranexamic Acid/Sodium Chloride 1,000 mg in 100 mls @ 600 mls/hr 10/08/24 06:00 IVPB 10/08/24 23:59 PREOP JACQUELINE IV Miscellaneous Supplies 1 each 10/08/24 06:00 Iv Access IV 10/08/24 23:59 DIRECTED JACQUELINE Sodium Chloride 0 ml 10/08/24 06:00 Normal Saline Flush 10 Ml Syr IV 10/08/24 23:59 PRN PRN Sodium Chloride 0 ml 10/08/24 06:00 Normal Saline 10 Ml Vial IJ 10/08/24 23:59 DIRECTED PRN Sterile Water 0 ml 10/08/24 06:00 Water,Injection,Sterile 10 Ml Vial IJ 10/08/24 23:59 DIRECTED PRN PFSH Active Problems Active Problems: Problem Status Onset Code Rupture of left proximal biceps tendon Acute S46.212A Arthritis of left glenohumeral joint Chronic M19.012 Iliac artery aneurysm Acute I72.3 Left kidney mass Acute N28.89 Degenerative joint disease of left hip Acute M16.12 Left knee pain Acute M25.562 Microscopic hematuria Acute R31.29 Anxiety disorder Acute F41.9 Atypical nevi Acute D22.9 Benign prostatic hyperplasia Acute N40.0 Elevated prostate specific antigen [PSA] Acute 03/13/12 R97.20 Generalized osteoarthrosis Acute M15.9 History of tobacco use Acute Z87.891 Hyperlipidemia Acute E78.5 Lactose intolerance Acute E73.9 Microscopic hematuria Acute 11/20/17 R31.29 Diastasis recti Acute M62.08 COVID-19 Acute U07.1 Back pain of thoracolumbar region Acute M54.50, M54.6 Medical History Medical History Pneumonia Bladder calculi Surgical History Surgical History History of total left knee replacement (05/20/24) History of cystoscopy (05/03/23) cystoscopy, holmium laser lithotripsy of bladder stones, stone fragment extraction S/P total hip arthroplasty Right H/O arthroscopy of left knee History of lumbar spinal fusion Vasectomy Colonoscopy - MAC 2005;NEG Colonoscopy - IV Sedation (07/21/16) Appendectomy Tobacco Smoking/Tobacco Use Status: Former Tobacco Use Passive smoking exposure: Yes Second hand exposure: No Alcohol Alcohol Intake: current Alcohol intake frequency: a few times a week Alcohol type: beer Details: weekends only Substance Use Substance use: Never Substance use type: does not use Vital Signs and Lab Results Vital Signs Most Recent Vital Signs in EMR: Most Recent Vital Signs Temp Pulse Resp BP Pulse Ox 36.5 C 83 16 131/93 H 96 10/08/24 06:10 10/08/24 06:10 10/08/24 06:10 10/08/24 06:10 10/08/24 06:10 Lab Results Blood Type / Crossmatch: 2 No Data to Display Complete Blood Count: 2 White Blood Count 6.76 10^3/uL (4.4-10.8) 10/03/24 11:42 Red Blood Count 5.27 10^6/uL (4.36-5.78) 10/03/24 11:42 Hemoglobin 15.7 g/dL (13.5-17.5) 10/03/24 11:42 Hematocrit 47.8 % (40.0-50.0) 10/03/24 11:42 Platelet Count 216 10^3/uL (130-400) 10/03/24 11:42 Complete Metabolic Panel: 2 Sodium 142 mmol/L (136-145) 10/03/24 11:42 Potassium 4.4 mmol/L (3.5-5.1) 10/03/24 11:42 Chloride 105 mmol/L (98-107) 10/03/24 11:42 Carbon Dioxide 31.4 mmol/L (21.0-32.0) 10/03/24 11:42 BUN 23 mg/dL (7-18) H 10/03/24 11:42 Creatinine 1.0 mg/dL (0.70-1.30) 10/03/24 11:42 Est GFR (CKD-EPI 2020) 79.97 (mL/min/1.73m2) 10/03/24 11:42 Calcium 9.3 mg/dL (8.5-10.1) 10/03/24 11:42 Glucose 108 mg/dL (74-106) H 10/03/24 11:42 Liver Function Panel: 2 No Data to Display Coagulation Panel: 2 No Data to Display Cardiac Panel: 2 No Data to Display Arterial Blood Gas: 2 No Data to Display Venous Blood Gas: 2 No Data to Display Pancreas Panel: 2 No Data to Display Thyroid Panel: 2 No Data to Display Infectious Disease: 2 No Data to Display Blood Cultures: 2 No Data to Display Toxicology Panel: 2 No Data to Display Anesthesia Assessment and Plan Anesthesia History Personal History: No History of Anesthesia Complications Family History: No Family History of Anesthesia Complications Exercise Tolerance Exercise Tolerance: Metabolic Equivalents>4 Pertinent Negatives Pertinent Negatives: No Major Cardiovascular Symptoms or Complaints, No Major Pulmonary Symptoms or Complaints and No History of CVA/TIA Cardiac & Pulmonary Exam Cardiac Exam: Normal S1/S2 Heart Sounds Pulmonary Exam: Clear Bilateral Breath Sounds and No cough or Cold Implantable Cardiac Device Does patient have a Pacemaker or an ICD?: No Airway Exam Known Difficult Airway: No Mallampati Class: 2 Mouth Opening: Normal (> 3cm) Thyromental Distance: Greater than 3 cm Neck Range of Motion: Full ROM Neck Circumference: Normal Teeth Condition: Generalized Poor Dentition Tooth Numberin 1. Missing ASA Classification ASA Score: ASA 2 Emergency Case?: No NPO Status NPO Status: NPO Clears >2 hours, Solids >8 hours Anesthesia Plan Resuscitation Status: Full Code Anesthesia Technique: Spinal Anesthesia Airway Planned: Natural Airway Monitors Used: Standard Monitors Preoperative Comments:: 73 Yo M presenting for a Left total hip. Hx notable for a recent [facility] ED visit (08/2024) with a chief complaint of chest pain. EKG negative, serial troponins negative. Diagnosis of GERD made. No subsequent events since. Endorses chronic, mild sensory deficits in his feet and chronic right hip pain, which patient believes is related to his previous hip surgery. Plan for spinal anesthesia with sedation.
[2024-10-08] MEDS: Acetaminophen 500 MG TAB 1000 MG PO (06:41)
--- NOTE | 2024-10-08 07:08 | PDOC.DSDIS_ITS ---
Date of service: 10/08/24 Discharge Plan Disposition Patient Disposition: Home Condition: Good Discharge Details Reason For Visit: L THR Attending Provider: Familia Junior Primary Care Provider: Franc Horner Home Meds and New Rx's Prescriptions: New acetaminophen 500 mg tablet 1,000 mg PO TID Qty: 90 3RF aspirin 81 mg tablet,delayed release (DR/EC) 81 mg PO BID Qty: 60 0RF celecoxib 200 mg capsule 200 mg PO BID Qty: 60 0RF dexamethasone 4 mg tablet 4 mg PO DAILY Qty: 2 0RF docusate sodium 100 mg capsule 100 mg PO BID PRNQty: 28 0RF pantoprazole 40 mg tablet,delayed release (DR/EC) 40 mg PO DAILY Qty: 14 0RF oxycodone 5 mg tablet 5 mg PO Q4H MDD 6 tabs PRN (Reason: pain) Qty: 12 0RF Continued sildenafil [Viagra] 100 mg tablet 100 mg PO DAILY MDD 100 mg PRN (Reason: ED) Qty: 10 6RF (DME) [facility] Spacer See Rx Instructions .Route Qty: 1 0RF Rx Instructions: As directed finasteride 5 mg tablet 5 mg PO DAILY Qty: 90 3RF sertraline 50 mg tablet 50 mg PO DAILY Qty: 90 3RF tamsulosin [Flomax] 0.4 mg capsule 0.4 - 0.8 mg PO BID Discharge Instructions Additional Instructions: Total Hip Discharge Instructions Activity: The most important activity is to walk. You should try to take short walks a few times a day. You have no restrictions on movement or positioning, but do not try to force what you do. You will find some stiffness and weakness with hip flexion (lifting your knee). Do not try to strengthen this too early, continue to practice walking and stairs and this will come. - Outpatient physical therapy can be helpful to help return you to a normal gait and improve your flexibility and strength. This can start around 2 weeks. For some patients, it?s not necessary. Usually this is determined at the time of discharge or at the first post-operative visit. - You should wear the YONI hose on both legs for 2 weeks. Dressing: Keep the surgical dressing in place for at least one week. After the first week it may be removed and replace with light gauze and tape or nothing. It may get wet after 3 days but avoid soaking the dressing. If it gets wet, just lightly pat dry. It is important to always keep some gauze between skin folds, especially when you are sitting. Spend some time with the wound exposed when you are lying flat as the incision does wrinkle onto itself. Medications: - You should take Tylenol and an anti-inflammatory Celebrex as your primary pain control medications. If the Celebrex is too expensive or not covered, please call the office for another alternative (Advil/Ibuprofen or Naproxen/Aleve). - You have been prescribed a stronger pain medication Oxycodone for breakthrough pain, take as needed as prescribed. - You have also been prescribed a stomach acid reduction agent Pantoprozole to help reduce stomach acid and reflux. - You have also been prescribed Decadron to help with post-operative nausea and pain. You will take this for two days starting tomorrow. - You will be taking Aspirin 81mg twice a day for DVT prevention unless instructed otherwise. - If you have constipation you should take Colace or Miralax (both [id number]). It takes most people 3-4 days to have a bowel movement. Follow-up: 2 weeks If you have any acute concerns or questions, please do not hesitate to contact the office at [phone]. You may contact Dr. Junior with any questions after hours through the hospital at [phone] or on his cell phone at [phone]. Referrals: Familia Junior MD [ [facility] STAFF PHYSICIAN] - Equipment/Supplies: Walker Activity:: Activity as Tolerated Shower/Bathe:: 72 hours Diet:: As Tolerated Discharge Orders Discharge Orders: Discharge Order (Routine); Ordered 10/08/24 Ordered By: Srikanth Espinosa DS: Diagnosis Discharge Diagnosis (1) Arthritis of left glenohumeral joint: Status: Chronic
[2024-10-08] MEDS: Lactated Ringers 1,000 ML 80 ML IV (07:10)
[2024-10-08] MEDS: ceFAZolin 2 GM/50 ML BAG IVPB (07:29)
[2024-10-08] MEDS: TRANEXAMIC ACID/SOD. CHL. 1,000 MG/100 ML BAG 600 MG IVPB (07:35)
--- NOTE | 2024-10-08 07:40 | ROE_ITS ---
Operative Note Operative Note PRE-OP DIAGNOSIS: Left Hip Osteoarthritis POST-OP DIAGNOSIS: same PROCEDURE: Left Anterior Total Hip Arthroplasty with Intraoperative Navigation SURGEON: Familia Junior MEDICAL BILL PROCESSOR: Srikanth Espinosa ANESTHESIA TYPE: Spinal Refer to Anesthesia Record ESTIMATED BLOOD LOSS: 300 PATHOLOGY: none sent TOURNIQUET TIME: 0 COMPLICATIONS: None Patient was transported to: PACU Patient's condition: stable Implants: 1. Depuy Bowie Acetabular Component, 54mm 2. Depuy Acetabular Liner, 64y20rs 3. Depuy Actis Standard Collared Femoral Stem, Size 6 4. Depuy Altrx Ceramic Femoral Head, Size 36+5mm Indications: I have seen Lenoard in clinic for symptoms of hip arthritis, confirmed with radiographic findings. He has exhausted nonoperative methods and was having significant limitations in daily function and desired better function and less pain. I discussed the technical details of a hip replacement. He had a successful hip replacement on the other side by Dr. Vaz 6 or so years ago. I explained the risks of the procedure to include, but not limited to, bleeding, infection, pain, stiffness, fracture, damage to nerves and vessels, damage to muscles and tendons, loosening, instability, leg length inequality, need for repeat procedure, blood clot and cardiopulmonary demise. Despite these risks, Leonard elected to proceed. Findings: There was significant signs of arthritis throughout the hip. Procedure Description: Leonard was greeted in the preoperative holding area where the correct side was identified and marked. The consent was reviewed with the patient and signed. The history and physical was updated. All questions were answered. He was taken back to the operating room. A spinal anesthestic was then administered. The feet were wrapped with cast padding and Coban and then placed into the boot liners and then into the boots. Care was taken to protect the skin and make sure the heels were fully down and the boots were stable. The patient was then positioned onto the HANA table. Both legs were held in a neutral position. SCDs were applied. The patient was then slid down onto a peroneal post. Prophylactic antibiotics in the form of Cefazolin were administered. 1g of Tranxemic Acid was given intravenously within 30 minutes of incision. The left leg was then prepped with Chloraprep and draped in a standard fashion. A second prep with Chloraprep was performed prior to placement of a shower-curtain type drape with Iodine impregnated skin protection. A timeout to confirm correct identity, side and site, procedure, allergies, anesthesia, and medical concerns was performed. An obliquely oriented incision was made starting lateral to the ASIS and running distal over the Tensor Fascia Prema (TFL) muscle belly toward the fibular head, approximately 10cm. The skin and soft tissue was dissected sharply, through Sonido?s fascia, and to the fascia of the TFL. With the fascia and superior border of the IT band identified, the fascia was incised with a new knife just above any perforators from the IT band. The TFL muscle belly was bluntly dissected away from the fascia and moved laterally. The fat between TFL and rectus was identified to ensure the dissection was not within the TFL. Blunt dissection created space between abductors and the capsule and retractor was placed over the lateral femoral neck. The fibers of the rectus femoris tendon were identified and these were freed from the anterior capsule. A second cobra retractor was placed around the medial femoral neck. The TFL was further retracted laterally to show the deep fascia. Careful dissection through this layer identified three main crossing vessels of the lateral femoral circumflex. These were cauterized in multiple locations and then cut without any noticeable bleeding. The TFL was further released bluntly from the deep fascia to expose anterior hip capsule and fat The soft tissue orthopaedic retractor was then placed beneath the TFL and against sartorius and medial soft tissues to protect and retract the soft tissues. A T-capsulotomy was then performed starting at the superior lateral acetabulum and moving distally to the intertrochanteric ridge. These capsular flaps were tagged with a No. 1 Vicryl and elevated from within. The capsular flaps were released to the shoulder of the lateral neck and to the lesser trochanter to give excellent visualization of the proximal femur. A neck osteotomy was performed using an oscillating saw based on preoperative templates. This cut started in the shoulder and of the lateral neck and exited medially. The saw was at all times directed medially to avoid injury to the greater trochanter. Gross traction was applied to the leg and the osteotomy opened. The femoral head was removed with a corkscrew, making sure to protect the TFL on its exit. Traction was released after head removal. This was measured on the back table to determine the starting reamer size. Portions of the rectus obscuring visualization were minimally elevated off the superior acetabulum. An anterior retractor was placed over the anterior wall between capsule and labrum and attached to the Gripper retraction system. The femur was rotated to 90 degrees and medial capsule was fully released until the lesser trochanter was palpable and visible; the femur was returned to 30 degrees. A posterior retractor was placed similarly between capsule and labrum. This provided excellent visualization. The contents of the cotyloid fossa were removed with electrocautery and the labrum was removed with a knife. There was a notable floor osteophyte. There was significant chondromalacia of the superior acetabulum. Acetabular reaming began with a 49mm reamer. This first reaming was directed anterior to posterior and medial to get down to the true floor. This was inspected and reamed until the true floor was reached. The anterior retractor was then released and entry and exit was provided by traction on the capsular flaps. I then reamed sequentially up to a 54mm reamer where good fit was obtained. The larger reamers were oriented based on anatomical reference of the anterior and lateral lora to ensure proper abduction and anteversion. Positioning and size was confirmed with the fluoroscopy. A 54mm Depuy Bowie acetabular component was selected. The acetabulum was reamed around the periphery with the selected acetabular size to prevent a rim fit. The deep tissues were irrigated. The acetabular component was then impacted in a position of about 40-45 degrees of abduction and 15-20 degrees of anteversion, using the patient?s anatomy as the ultimate landmark. Fluoroscopy was used to confirm this. There was excellent developer trading systems of the acetabular component and the inserting handle was removed. The acetabular liner, Depuy [id number] polyethylene liner, was inserted and lined up with the tines of the acetabular component. There was no soft tissue interposition. The liner was then impacted into position and confirmed to be well-seated. A portion of the abeba-articular cocktail was then injected around the acetabulum into the capsule and periosteum. This cocktail consisted of 123mg of Ropivacaine, 0.25mg of Epinephrine, 0.04mg of Clonidine, and 15mg of Ketorolac, diluted to 50cc. The leg was rotated to 120 degrees. Any remaining medial capsule was released until the lesser trochanter was easily palpable. A retractor was placed medially. The lateral capsule was further released into the shoulder to allow access to the greater trochanter. A Alejandro retractor was placed over the greater trochanter which allowed the trochanter to flip in front of the capsule for excellent exposure. The leg was brought down into maximal extension and 20 degrees of adduction while ensuring there was no impingement on the acetabulum. Any remnant capsule within the trochanter was released. Piriformis and obturator externis were identified and protected. There was excellent access to the proximal femur. The lateral neck remnant was removed with a rongeur. A blunt canal probe was used to identify the canal and trajectory for later broaching. A box osteotome initiated the broach course. A small curved rasp and a curved curette were used to work laterally. Broaching then began with a starter Actis broach. This was inserted manually around the trochanter and into the canal before mallet blows. The broach was seated to a few millimeters below the cut level based on the neck cut and the preoperative template. Sequential broaching was continued with the Samba Ads pneumatic broaching device until a tight fit was obtained with good rotational control of the femur. A trial standard neck was inserted along with a +1.5 trial head. The leg was brought out of extension and adduction and then reduced with traction and internal rotation. The leg was stable anteriorly in a position of 30 degrees of extension and 90 degrees of external rotation. Fluoroscopy was used to ensure there was no fracture and the stem was seated well. Leg lengths were checked with an AP pelvis and pelvic reference points. Cintric navigation system was used to confirm appropriate positioning and leg length and offset. Once content with the desired offset and leg lengths, the leg was brought back into extension, external rotation and adduction. The periosteum and surrounding tissue was injected with remaining portion of the abeba-articular cocktail. The proximal femur was irrigated as well as the deep tissues. The GlySureuy Actis standard collared stem, size 6, was then manually inserted into the proximal femur making sure to control rotation. It was then malleted into position with light blows, giving breaks to allow bone expansion and decrease risk of fracture. The selected Depuy Altrx Ceramic Head, size 36+5mm, was then placed onto the clean and dry trunnion and secured with impaction onto the tapered fit. The leg was brought back out of extension and adduction and reduced with traction and internal rotation. Stability was confirmed with no shuck at 90 degrees of external rotation and 30 degrees of extension. No impingement through range of motion arc. Final x-ray images were obtained with fluoroscopy to confirm adequate positioning and no intraoperative fracture. The deep tissues were thoroughly irrigated with Surgiphor, betadine solution. This was allowed to sit in the wound for 3 minutes before being thoroughly irrigated out with normal saline. The capsule was then reapproximated with the previously placed sutures. The TFL fascia was finally closed with a No. 2 S tratafix, barbed suture. Deep tissues were then reapproximated with 0 Vicryl and a running 2-0 Vicryl. The skin was closed with a running 4-0 Monocryl in a subcuticular fashion. This was reinforced with skin glue. A Mepilex silver dressing was applied. At the end of the case, all counts were correct. Leonard was transferred to the hospital bed without difficulty and suffering no apparent complication. Leonard has a good prognosis. Physical therapy will start today and without restrictions, weight-bearing as tolerated. Aspirin 81mg BID will be used for DVT prophylaxis. Date of Procedure: 10/08/24
--- NOTE | 2024-10-08 09:00 | DI.RAD_ITS ---
Exam(s) XR HIP LT IN OR EXAM: XR HIP LT IN OR CLINICAL HISTORY: DJD LEFT HIP. TECHNIQUE: 2D and realtime digital imaging was performed. COMPARISON: CR XR PELVIS AP from 10/03/2024 FINDINGS: Hard copy images show placement of a left hip prosthesis. The alignment appears satisfactory. Please see procedure note for details. Fluoro time: 24.3seconds RADIATION DOSE DELIVERED: Ka,r=5.5 mGy
[2024-10-08] MEDS: ePHEDrine 25 MG/5 ML Syringe IVP (09:28)
[2024-10-08] MEDS: fentaNYL 100 MCG/2 ML VIAL IVP ×2 (09:32→09:46)
--- NOTE | 2024-10-08 11:34 | W.ANESPOSTOP ---
Postoperative Evaluation Date, Time and Location Date Performed: 10/08/24 Time Performed: 11:29 Patient Location: Day Surgery Unit Vital Signs Most Recent Imported Vital Signs: Most Recent Vital Signs Temp Pulse Resp BP Pulse Ox 36.2 C L 77 16 108/67 94 10/08/24 10:43 10/08/24 10:43 10/08/24 10:43 10/08/24 10:43 10/08/24 10:43 Pain Score Most Recent Pain Score: Most Recent Pain Score Pain Level 1 10/08/24 10:43 Assessment Mental Status: Awake (Alert & Oriented to Patient Baseline) Airway and Respiratory Function: Patent airway with normal (patient baseline) respiratory exam Cardiovascular Function: Hemodynamically Stable Hydration Status: Adequately Hydrated Nausea & Vomiting: No Nausea or Vomiting Pain: Pain is tolerable per patient Peripheral Nerve Block: Patient did not receive a nerve block
--- NOTE | 2024-10-08 11:35 | PT.INIE ---
PT Notes Visit Reasons: L THR Physical Therapy Day Surgery Initial Evaluation Date: 10/08/2024 Referring Doctor: Dr. Sandi Granger PT Orders: PT CONSULT: Status post Ortho consult Precautions: WBAT left lower extremity,TEDS x 2 weeks Patient Profile/Admitting Diagnosis: Patient is 73-year-old male presenting status post elective left DENIA spinal anesthesia. Postop uncomplicated PMHX: OA, iliac artery aneurysm, left kidney mass, DJD left hip, anxiety disorder, atypical Nevi, BPH, history of tobacco use, hyperlipidemia, lactose intolerance, diastases recti, history of COVID, thoracolumbar back pain Social History/Home Situation: Patient lives with his in a single level home with finished basement where patient's offices. Patient has 2 steps to enter without a rail and a flight of stairs with bilateral rails to the basement. Patient independent ambulation without device independent ADLs positive driving, shopping assists with meal prep. Equipment Owned/DME: Tub seat and hand-held shower, FWW Subjective: Patient reports he is motivated to get back to doing things after having the knee done in May and now his hip Objective: [] General Observation: Male semireclined on stretcher with Cryo/Cuff to left knee. present. Mental Status: Alert and oriented x 4, agreeable and motivated to participate. Pain: 2/10 left hip ROM: [] Right Upper Extremity: Within normal limits Left Upper Extremity: Within normal limits Right Lower Extremity: Within normal limits Left Lower Extremity: Hip flexion 90, abduction 12, IR to neutral, knee~ 0-120 , ankle WFL Strength: [] Right Upper Extremity: 5/5 globally Left Upper Extremity: 5/5 globally Right Lower Extremity: 5/5 globally Left Lower Extremity: Hip flexion: 3 -/5; hip abduction: 2+/5; hip extension: 3/5; knee extension: >/= to 3 /5 ; knee flexion: 2+/5 ankle DF: 3/5 ; ankle PF: 3/5 Sensation: [] Intact Bed Mobility/Transfers: Supine to sit supervision Sit to stand supervision Stand to sit supervision Bed to chair supervision with FWW Gait: Patient ambulated with FWW and SBA 200 feet with reciprocal patternminimal WB through BUE Stairs: CGA Step to pattern 3 steps utilizing walker on top step to simulate entrance into home with no railings as patient does not have other assistive device. Patient performed 6 steps with bilateral rails step to pattern with supervision cues for sequencing Balance: [] Static Sitting: Normal Dynamic Sitting: Good Static Standing: Good Dynamic Standing: Fair plus Special Tests: [] Mobility Limitations Standardized Measure [] [facility] 6 clicks Basic Mobility Inpatient Short Form: [] Raw Score: 23 CMS Score: 11.20% Informed Consent/Education: Patient and instructed in purpose of PT consult. Packet containing DENIA exercise protocol has been given to patient. Assessment: Patient is a 73-year-old male presents with clinical signs and symptoms consistent with current/admitting diagnoses that have resulted to mobility limitations, gait instability, generalized weakness, and impairment of motor control as demonstrated by the following impairment level findings: 1. Decreased strength to left hip major muscle groups 2. Impaired standing balance 3. Limitation of joint range of motion in left hip 4. Impaired functional activity tolerance and standing Impairments are contributing to the following functional limitations: 1. Inability to safely ambulate without assistive device 2. Increase completion time for mobility ADL performance 3. Increased fall risk 4. Difficulty performing stairs alone safely Patient is assessed as a low complexity based on the following: History: 73-year-old male with impairment level findings, functional limitations, and past medical history as indicated above Examination: Demonstrable impairment in strength, balance, and mobility level with underlying impairments and functional limitations as documented above Presentation: stable Decision Making: low Goals: N/A. Plan of Care/Treatment Plan: N/A. DISCHARGE RECOMMENDATIONS: Home with home exercise program TREATMENT CODE/TIME: [id number] /[id number] Thank you for the opportunity to participate in the care of this patient. Ela Dougherty, PT [facility]
== END 2024-10-08 11:40 | disposition home or self-care (01) ==
PROVIDERS: PCP Nurse Practitioner Family; Visit Provider Student in an Organized Health Care Education/Training Program
PROC: (CPT 27130; principal; 2024-10-08 07:30)
DX: M16.12 Unilateral primary osteoarthritis, left hip (principal)
CPT/HCPCS: 20985; 27130; 97161; 73501; C1776; J0690; J1100; J2003; J2250; J2371; J2401; J2405; J2704; J3010

== ENCOUNTER → 2024-10-13 09:34 | Outpatient (BNVA) | payer MEDICARE, SELFPAY | PROVIDERS: PCP Nurse Practitioner Family; Referring Provider Nurse Practitioner Family; Visit Provider Student in an Organized Health Care Education/Training Program | DX: Z47.1 Aftercare following joint replacement surgery (principal); Z96.642 Presence of left artificial hip joint | CPT/HCPCS: 99024 ==

== ENCOUNTER 2024-10-19 10:14 | Emergency (ER) | payer MEDICARE, SELFPAY ==
[2024-10-19 10:18] VITALS: BP 173/95; PULSE 97; RESP 18; TEMP 36.9; O2SAT 96
[2024-10-19 10:20] VITALS: BP 173/95; PULSE 97; RESP 18; TEMP 36.9; O2SAT 96
--- NOTE | 2024-10-19 10:37 | W.ED.GENAD ---
Discharge Plan Disposition Patient Disposition: Home Condition: Stable Discharge Details Clinical Impression: Post-operative complication Primary Care Provider: Franc Horner ED Provider: Saurav Covington Home Meds and New Rx's Prescriptions: No Action sildenafil [Viagra] 100 mg tablet 100 mg PO DAILY MDD 100 mg PRN (Reason: ED) Qty: 10 6RF (DME) Jasiel [facility] Spacer See Rx Instructions .Route Qty: 1 0RF Rx Instructions: As directed finasteride 5 mg tablet 5 mg PO DAILY Qty: 90 3RF sertraline 50 mg tablet 50 mg PO DAILY Qty: 90 3RF tamsulosin [Flomax] 0.4 mg capsule 0.4 - 0.8 mg PO BID acetaminophen 500 mg tablet 1,000 mg PO TID Qty: 90 3RF aspirin 81 mg tablet,delayed release (DR/EC) 81 mg PO BID Qty: 60 0RF celecoxib 200 mg capsule 200 mg PO BID Qty: 60 0RF dexamethasone 4 mg tablet 4 mg PO DAILY Qty: 2 0RF docusate sodium 100 mg capsule 100 mg PO BID PRNQty: 28 0RF pantoprazole 40 mg tablet,delayed release (DR/EC) 40 mg PO DAILY Qty: 14 0RF oxycodone 5 mg tablet 5 mg PO Q4H MDD 6 tabs PRN (Reason: pain) Qty: 12 0RF Discharge Instructions Instructions: Surgical Wound (DC) Additional Instructions: You were seen in the emergency department for the bleeding from your incision site from your recent hip replacement, this surgical wound has been revised, I spoke with Dr. Junior today, please call him tomorrow and he will arrange follow-up for you. The wound does not appear to come apart with significant traction but you are having some minor leakage with movement and pressure. We are going to apply a pressure dressing, I sent you home with extra supplies in case you need to change this dressing before you can see Dr. Junior, try to minimize pressure on the area. Please return for any acute hemorrhage from the wound, any redness or signs of infection spreading. Referrals: [facility] [Provider Group] Franc Horner, BAKE ROOM WORKER [Primary Care Provider] - Discharge Data Discharge Date/Time-TO BE ENTERED AT DEPARTURE: 10/19/24 10:55 HPI General Date/Time Provider Initiated Documentation: 10/19/24 10:37. HPI Narrative: 73 year-old male presents to ED today by POV/ambulating with a chief complaint of incision site leakages from revision of prior dehiscence of L anterior hip replacement with onset today while bending over putting on his shoes. Quality described as some serious amount of blood at first- he struggled to put more pressure on it and called family to bring him here, no radiation to fever, inability to weight bear, erythema at site, drainage of pus from the area. Severity is described as severe. Palliating factors include bleeding controlled with bandage at home. Provoking factors include nothing specific. Events leading up to the incident/Associated Symptoms: Patient did not remember where he put Ortho's phone number, but was too concerned about bleeding to call outpatient services. Patient not anticoagulated. Related Data Home Medications ?Medication ?Instructions ?Recorded ?Confirmed inhalational spacing device #1 ea 03/05/24 10/13/24 [facility] spacer) finasteride 5 mg tablet 5 mg PO DAILY #90 tabs 05/26/24 10/13/24 sertraline 50 mg tablet 50 mg PO DAILY #90 tabs 07/22/24 10/13/24 sildenafil 100 mg tablet (Viagra) 100 mg PO DAILY PRN ED #10 tabs 09/30/24 10/13/24 tamsulosin 0.4 mg capsule (Flomax) 0.4 - 0.8 mg PO BID 10/03/24 10/13/24 acetaminophen 500 mg tablet 1,000 mg (2 x 500 mg) PO TID #90 10/08/24 10/13/24 tabs aspirin 81 mg tablet,delayed 81 mg PO BID #60 tabs 10/08/24 10/13/24 release celecoxib 200 mg capsule 200 mg PO BID #60 caps 10/08/24 10/13/24 dexamethasone 4 mg tablet 4 mg PO DAILY #2 tabs 10/08/24 10/13/24 docusate sodium 100 mg capsule 100 mg PO BID PRN #28 caps 10/08/24 10/13/24 oxycodone 5 mg tablet 5 mg PO Q4H PRN pain #12 tabs 10/08/24 10/13/24 pantoprazole 40 mg tablet,delayed 40 mg PO DAILY #14 tabs 10/08/24 10/13/24 release Previous Rx's ?Medication ?Instructions ?Recorded inhalational spacing device #1 ea 03/05/24 ([facility] spacer) finasteride 5 mg tablet 5 mg PO DAILY #90 tabs 05/26/24 sertraline 50 mg tablet 50 mg PO DAILY #90 tabs 07/22/24 sildenafil 100 mg tablet (Viagra) 100 mg PO DAILY PRN ED #10 tabs 09/30/24 acetaminophen 500 mg tablet 1,000 mg (2 x 500 mg) PO TID #90 10/08/24 tabs aspirin 81 mg tablet,delayed 81 mg PO BID #60 tabs 10/08/24 release celecoxib 200 mg capsule 200 mg PO BID #60 caps 10/08/24 dexamethasone 4 mg tablet 4 mg PO DAILY #2 tabs 10/08/24 docusate sodium 100 mg capsule 100 mg PO BID PRN #28 caps 10/08/24 oxycodone 5 mg tablet 5 mg PO Q4H PRN pain #12 tabs 10/08/24 pantoprazole 40 mg tablet,delayed 40 mg PO DAILY #14 tabs 10/08/24 release Allergies Allergy/AdvReac Type Severity Reaction Status Date / Time atorvastatin calcium (From AdvReac Unknown unknown Verified 10/08/24 06:26 Lipitor) smoke AdvReac Mild uri Uncoded 10/08/24 06:26 symptoms General Stated Complaint: GenMedical BETHANY: 3 Review of Systems All systems reviewed & are unremarkable except as noted in HPI and below Exam Narrative Exam Narrative: GENERAL APPEARANCE: Well-nourished, non-toxic, awake and alert, atraumatic, no acute distress. SKIN: Warm, pink, dry, left hip anterior incision site does not pull apart with significant manual traction, has a small area of leakage between 2 buried sutures in the inferior third of the incision, not actively bleeding, patient neurovascularly intact distal to this area no erythema, no drainage of pus, no lymphadenitis, able to weight-bear HEAD: Normocephalic, atraumatic, normal hair distribution for gender/age. EYES: Normal conjunctiva, no exudates on lids/lashes. ENT: Nares patent, no circumoral cyanosis, no facial swelling NECK: Supple, trachea midline, painless cervical ROM. LUNGS/CHEST: Non-labored respirations, normal A/P diameter, symmetrical expansion, no chest wall deformity HEART (CV/PV): No peripheral edema, no JVD. ABDOMEN: Soft, non-distended, no guarding. MSK: Normal ROM, no swelling/deformity to bilateral UEs or LEs, moving all extremities without weakness, no cyanosis, spine midline without tenderness, normal curvature. NEURO: Mental Status AAOx4 - alert to person, place, time, events No facial droop, no forehead involvement. Motor: No focal weakness - strength 5/5 in bilateral UEs and LEs, proximal and distal, symmetric. Sensory: sensation intact to light touch globally. Gait antalgic. PSYCH: euthymic, cooperative, pleasant, appropriate speech Course Vital Signs Vital signs: Vital Signs Temperature 36.9 C 10/19/24 10:18 Pulse 97 H 10/19/24 10:18 Respiratory Rate 18 10/19/24 10:18 Blood Pressure 173/95 H 10/19/24 10:18 Pulse Oximetry 96 10/19/24 10:18 Temperature 36.9 C 10/19/24 10:20 Temperature Source Oral 10/19/24 10:20 Pulse 97 H 10/19/24 10:20 Respiratory Rate 18 10/19/24 10:20 Respiratory Effort Normal 10/19/24 10:24 Blood Pressure 173/95 H 10/19/24 10:20 Pulse Oximetry 96 10/19/24 10:20 Medical Decision Making This dictation utilizes [id number] dictation software and may contain unedited grammatical errors. 73 year-old male presents to ED today by POV/ambulating with a chief complaint of incision site leakages from revision of prior dehiscence of L anterior hip replacement with onset today while bending over putting on his shoes. Quality described as some serious amount of blood at first- he struggled to put more pressure on it and called family to bring him here, no radiation to fever, inability to weight bear, erythema at site, drainage of pus from the area. Severity is described as severe. Palliating factors include bleeding controlled with bandage at home. Provoking factors include nothing specific. Events leading up to the incident/Associated Symptoms: Patient did not remember where he put Ortho's phone number, but was too concerned about bleeding to call outpatient services. Patients' medical history: Left total hip other orthopedic problems, BPH, anxiety, left kidney mass, iliac artery aneurysm. Family and social history: Has been improving his activity level as tolerated, otherwise noncontributory. Pertinent exam findings / vital signs include left hip anterior incision site does not pull apart with significant manual traction, has a small area of leakage between 2 buried sutures in the inferior third of the incision, not actively bleeding, patient neurovascularly intact distal to this area no erythema, no drainage of pus, no lymphadenitis, able to weight-bear. Differential / pathologies of concern include post-operative bleeding, wound dehiscence. Diagnostic studies of: -None. Interventions of: -Discussed with Ortho on-call Dr. Junior, will perform pressure dressing - he will follow in office. ED Course/Assessment/Plan: 73-year-old male who had a prior wound dehiscence that was revised by Dr. Junior is having some minor leakage his recent hip arthroplasty kind of significant pressure to the area like bending over to tie his shoes, I spoke with Dr. Junior, he cleaned the wound with Betadine and applied a pressure dressing to control bleeding and he will follow-up in office, his family member was present and witnessed technique required to make an effective pressure dressing should they have recurrence they can reapply a new dressing at home if they have not seen Dr. Junior yet, I stressed strict return criteria for any severe wound dehiscence or severe bleeding or signs of infection or any other emergent concerns. Findings not consistent with wound dehiscence, infection, hemorrhage. Disposition of Post-operative Complication. Patient verbalized understanding of the plan and return to ED criteria and engaged in shared decision making. Medical Records Medical records reviewed: Yes I reviewed the patient's medical records. Quality:SDOH Health Related Social Needs: No Data to Display [facility] All Active Problems (Updated 10/19/24 @ 10:41 by NICOLE Brasher) Post-operative complication (Acute) History of total left hip arthroplasty (Acute 10/08/24) Rupture of left proximal biceps tendon (Acute) Arthritis of left glenohumeral joint (Chronic) 81 Depo-medrol injection: 08/15/24 Iliac artery aneurysm (Acute) Left kidney mass (Acute) Left knee pain (Acute) Microscopic hematuria (Acute) Anxiety disorder (Acute) Atypical nevi (Acute) Benign prostatic hyperplasia (Acute) Elevated prostate specific antigen [PSA] (Acute 03/13/12) Generalized osteoarthrosis (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 not vaccinated Back pain of thoracolumbar region (Acute) Medical History Pneumonia Bladder calculi Surgical History History of total left knee replacement (05/20/24) History of cystoscopy (05/03/23) cystoscopy, holmium laser lithotripsy of bladder stones, stone fragment extraction S/P total hip arthroplasty Right H/O arthroscopy of left knee History of lumbar spinal fusion Vasectomy Colonoscopy - MAC 2005;NEG Colonoscopy - IV Sedation (07/21/16) Appendectomy Family History Mother , 95 No problems noted. Father , age 97 Essential hypertension Sister No problems noted. Brother No problems noted. Maternal Grandfather No problems noted. Paternal Grandfather No problems noted. Maternal Grandmother No problems noted. Paternal Grandmother Cancer Social History Smoking/Tobacco Use Status: Former Tobacco Use tobacco type: cigarettes Quit Date: 05/14/91 Second Hand Exposure: No Smoking risk assessment performed?: Yes Alcohol Intake: current Alcohol Intake frequency: a few times a week Alcohol type: beer Details: weekends only Drug use: Never Substance use type: does not use Caregiver/Support person: No Household members: spouse Housing: house Communication Needs: None Do you need help understanding health information?: Never current occupation: [employer] Pets and animals: Yes Pets and animals: cat(s) Sexually active: No Do you think of yourself as: straight/heterosexual Current gender identity: male What is your relationship status?: How often do you talk on the phone with friends or family?: once per week How often do you get together with friends or relatives?: once per week How often do you attend confucianism or restorationism services?: 1-3 times per year Do you belong to any clubs or organized social groups?: no Panel score (0-1 are the most socially isolated patients): 1 What type of physical activity do you participate in: walking Duration: 45-60 minutes/day Frequency: 5-6 times per week Melinda/Scientologist: Presybeterian Special melinda needs: No Seatbelt use: always Helmet use: No 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
== END 2024-10-19 10:55 | disposition home or self-care (01) ==
PROVIDERS: Emergency Provider Physician Assistant; PCP Nurse Practitioner Family
DX: T81.89XA Other complications of procedures, not elsewhere classified, initial encounter (principal)
CPT/HCPCS: 99283; 99282

== ENCOUNTER 2024-10-23 10:40 | Outpatient (CLI) | payer MEDICARE, SELFPAY ==
--- NOTE | 2024-10-23 09:45 | DI.RAD_ITS ---
Exam(s) XR HIP LT COMPLETE AP PELVIS EXAM: XR HIP LT COMPLETE AP PELVIS CLINICAL HISTORY: F/U LEFT DENIA. TECHNIQUE: 2D digital imaging was performed. COMPARISON: CR XR PELVIS AP from 10/03/2024 FINDINGS: Two views Stable position alignment of the components of the recently placed left hip prosthesis. No fracture or loosening evident. Right hip prosthesis again noted. IMPRESSION: DATA REPOSITORY: RADIATION DOSE DELIVERED:
== END 2024-10-23 10:41 | disposition home or self-care (01) ==
LOC: DIORS 10:40
PROVIDERS: PCP Nurse Practitioner Family; Referring Provider Nurse Practitioner Family; Visit Provider Physician Assistant
DX: Z47.1 Aftercare following joint replacement surgery (principal); Z96.642 Presence of left artificial hip joint; T81.30XA Disruption of wound, unspecified, initial encounter
CPT/HCPCS: 99213; 73502

== ENCOUNTER 2024-10-29 02:27 | Outpatient (CLI) | payer MEDICARE, SELFPAY ==
--- NOTE | 2024-10-29 | DI.CT_ITS ---
Exam(s) CT LUMBAR SPINE WO EXAM: CT LUMBAR SPINE WO CLINICAL HISTORY: Spinal stenosis of lumbar region with neurogenic claudication, M48.062;. TECHNIQUE: Imaging Protocol: Axial computed tomography images with coronal and sagittal reformatted images were created and reviewed COMPARISON: CT CT ABDOMEN PELVIS WO/W from 05/01/2023 FINDINGS: Bones: The last intervertebral disc space is designated the L5/S1 level for the numbering purpose of this examination. The vertebral body heights are well maintained. There is stable grade 1 anterolisthesis of L4 on L5. No fracture is seen. There again seen postsurgical changes with posterior spinal surgery at L4- L5 and intervertebral disc device at L4-L5. The orthopedic hardware appears unremarkable. T12-L1: No disc herniations or bulges are present. No central spinal canal or neural foraminal stenosis. L1-2: No disc herniations or bulges are present. No central spinal canal or neural foraminal stenosis. L2-3: There is a mild diffuse disc bulge. Mild hypertrophic changes of the ligamentum flavum are seen. Minimal narrowing of the central spinal canal is seen. No significant neural foraminal stenosis is present. L3-4: There is a diffuse disc bulge. There are hypertrophic changes of the facets and ligamentum flavum. These all contribute to cause marked central spinal canal stenosis. No significant neural foraminal stenosis is present. L4-5: No disc herniations or bulges are present. No central spinal canal or neural foraminal stenosis. L5-S1: No disc herniations or bulges are present. No central spinal canal or neural foraminal stenosis. Soft Tissues: The visualized SI joints and sacrum are will maintained. There is a left common iliac artery aneurysm measuring 3.7 cm. This has increased in size compared to the prior examination. IMPRESSION: 1. Degenerative changes at L3-L4 causing marked central spinal canal stenosis. 2. At L4-L5, there are again seen findings of posterior spinal surgery and an intervertebral disc device. 3. Stable grade 1 anterolisthesis of L4 on L5. 4. Multilevel degenerative changes in the lumbar spine. 5. Apparent interval increase in size of the left common iliac artery aneurysm measuring 3.[address] scan of the abdomen and pelvis is suggested for further characterization. Unexpected findings RADIATION DOSE DELIVERED: 1,329.05mGy.cm Total DLP 1,329.05mGy.cm Total DLP DATA REPOSITORY: All CT scans at this facility are submitted to the National Radiology Data Registry (NRDR) Dose Index Registry (DIR) with the [employer] (A[employer]). RADIATION OPTIMIZATION: All CT scans at this facility use at least one of these dose optimization techniques: automated exposure control; mA and/or kV adjustment per patient size (includes targeted exams where dose is matched to clinical indication); or iterative reconstruction.
== END 2024-10-29 02:47 ==
LOC: DI 02:28
PROVIDERS: PCP Nurse Practitioner Family; Visit Provider Physician Assistant Surgical
DX: M48.062 Spinal stenosis, lumbar region with neurogenic claudication (principal)
CPT/HCPCS: 72131

== ENCOUNTER → 2024-11-24 08:53 | Outpatient (BNVA) | payer MEDICARE, SELFPAY | PROVIDERS: PCP Nurse Practitioner Family; Referring Provider Nurse Practitioner Family; Visit Provider Physician Assistant | DX: Z47.1 Aftercare following joint replacement surgery (principal); Z96.642 Presence of left artificial hip joint | CPT/HCPCS: 99024 ==

== ENCOUNTER 2024-12-04 02:53 | Outpatient (CLI) | payer MEDICARE, SELFPAY ==
[2024-12-04 10:45] LABS: HCT 42.6 % (40.0-50.0); HGB 14.3 g/dL (13.5-17.5); MCH 30.5 pg (27.0-33.0); MCHC 33.6 % (32.0-36.0); MCV 91 fL (80-95); MPV 9.8 fL (8.0-11.0); Platelet Count 193 10^3/uL (130-400); RBC 4.69 10^6/uL (4.36-5.78); RDW 13.2 % (11.8-14.1); RDW-SD 43.9 fL; WBC 5.89 10^3/uL (4.4-10.8)
[2024-12-04 11:31] LABS: Anion Gap 7.9 mmol/L (3-11); BUN 24 mg/dL (7-18); CO2 29.1 mmol/L (21.0-32.0); Calcium 9.2 mg/dL (8.5-10.1); Chloride 105 mmol/L (98-107); Estimated GFR 90.18 (mL/min/1.73m2); Glucose 117 mg/dL (74-106); Potassium 4.3 mmol/L (3.5-5.1); Sodium 142 mmol/L (136-145)
[2024-12-05 10:24] LABS: Prealbumin 26 mg/dL (20-40)
== END 2024-12-04 02:54 | disposition home or self-care (01) ==
LOC: LBO 02:53
PROVIDERS: PCP Nurse Practitioner Family; Visit Provider Surgery
DX: I72.3 Aneurysm of iliac artery (principal)
CPT/HCPCS: 36415; 80048; 85027; 84134

== ENCOUNTER 2025-01-05 09:30 | Outpatient (CLI) | payer MEDICARE, SELFPAY ==
--- NOTE | 2025-01-05 08:45 | DI.RAD_ITS ---
Exam(s) XR KNEE LT 3V AP,LAT,ZEB EXAM: XR KNEE LT 3V AP,LAT,ZEB CLINICAL HISTORY: left TKA injury. TECHNIQUE: 2D digital imaging was performed. Three images were obtained. The merchant's, AP and lateral views were obtained. COMPARISON: CR XR KNEE LT 3V AP,LAT,ZEB from 11/16/2023 CR XR KNEE LT 1V from 05/09/2024 CR XR STANDING ALIGNMENT from 05/09/2024 CR XR STANDING ALIGNMENT from 06/02/2024 CR XR KNEE LT 1V from 06/02/2024 FINDINGS: BONES: There postoperative changes again seen of a left total knee arthroplasty. No fracture or dislocation. JOINTS: The femoral and tibial components appear in good position. There is new bone density material seen superior and lateral to the patella. This was not present on the examination from 06/02/2024. This may represent a fracture or dystrophic calcification. There is slight lateral tilt of the patella. SOFT TISSUE: Normal. IMPRESSION: 1. Left total knee arthroplasty. 2. New bone density material at the superior and lateral aspect of the patella not present on the prior examination. Acute fracture, healing fracture or dystrophic calcification. Please correlate with the patient's physical exam. A CT scan may be considered for further evaluation. DATA REPOSITORY: RADIATION DOSE DELIVERED:
== END 2025-01-05 09:31 | disposition home or self-care (01) ==
LOC: DIORS 09:30
PROVIDERS: PCP Nurse Practitioner Family; Referring Provider Nurse Practitioner Family; Visit Provider Student in an Organized Health Care Education/Training Program
DX: Z47.1 Aftercare following joint replacement surgery (principal); Z96.652 Presence of left artificial knee joint; M25.662 Stiffness of left knee, not elsewhere classified; M62.81 Muscle weakness (generalized)
CPT/HCPCS: 99213; 73562

== ENCOUNTER 2025-01-06 15:13 | Outpatient (CLI) | payer MEDICARE, SELFPAY ==
--- NOTE | 2025-01-06 10:45 | DI.CT_ITS ---
Exam(s) CT LOWER EXTREMITY LT WO EXAM: CT LOWER EXTREMITY LT WO CLINICAL HISTORY: PAIN, lt patella fracture, S82.002A. TECHNIQUE: Imaging Protocol: Axial computed tomography images with coronal and sagittal reformatted images were created and reviewed. CONTRAST MATERIAL: Intravenous: None COMPARISON: Prior x-rays 01/05/2025 FINDINGS: OSSEOUS: Again noted is a left hip arthroplasty and has also been patellar resurfacing. There are no fractures seen in the distal tibia and fibula no evidence of obvious loosening of the femoral and tibial components of the prosthesis There is a joint effusion noted in the suprapatellar bursa With respect to of the patella, there is an osteophytic density the seen off the superolateral aspect which has appearance of a fracture fragment measuring approximately 9 x 8 mm and there is a corresponding defect in the superior lateral cortex of the patella. IMPRESSION: Fracture fragment off the superolateral aspect of patella evident. There is a moderate size joint effusion. RADIATION DOSE DELIVERED: 162.09mGy.cm Total DLP DATA REPOSITORY: All CT scans at this facility are submitted to the National Radiology Data Registry (NRDR) Dose Index Registry (DIR) with the [employer] (ACR). RADIATION OPTIMIZATION: All CT scans at this facility use at least one of these dose optimization techniques: automated exposure control; mA and/or kV adjustment per patient size (includes targeted exams where dose is matched to clinical indication); or iterative reconstruction.
== END 2025-01-06 15:33 ==
LOC: DI 15:15
PROVIDERS: PCP Nurse Practitioner Family; Visit Provider Student in an Organized Health Care Education/Training Program
DX: S82.032A Displaced transverse fracture of left patella, initial encounter for closed fracture (principal); X58.XXXA Exposure to other specified factors, initial encounter
CPT/HCPCS: 73700

== ENCOUNTER 2025-01-26 15:02 | Outpatient (CLI) | payer MEDICARE, SELFPAY ==
--- NOTE | 2025-01-26 13:27 | DI.RAD_ITS ---
Exam(s) XR KNEE LT 3V AP,LAT,ZEB EXAM: XR KNEE LT 3V AP,LAT,ZEB CLINICAL HISTORY: L KNEE PAIN. TECHNIQUE: 2D digital imaging was performed. COMPARISON: CR XR KNEE LT 3V AP,LAT,ZEB from 01/05/[address] LOWER EXTREMITY LT WO from 01/06/2025 FINDINGS: 3 views Again noted is a total arthroplasty with no loosening evident. Joint effusion noted. The fracture fragment off the superolateral aspect of the patella is again noted, radiographically unchanged from 01/05/2025. Also again noted is lateral tilting of the patella, also unchanged from 01/05/2025. IMPRESSION: Patellar fracture appears similar to 01/05/2025. DATA REPOSITORY: RADIATION DOSE DELIVERED:
== END 2025-01-26 15:03 | disposition home or self-care (01) ==
LOC: DIORS 15:04
PROVIDERS: PCP Nurse Practitioner Family; Referring Provider Nurse Practitioner Family; Visit Provider Physician Assistant
DX: S82.002A Unspecified fracture of left patella, initial encounter for closed fracture (principal); W19.XXXA Unspecified fall, initial encounter; Z96.652 Presence of left artificial knee joint; Z96.642 Presence of left artificial hip joint
CPT/HCPCS: 99213; 73562

== ENCOUNTER 2025-02-09 04:08 | Outpatient (CLI) | payer MEDICARE, SELFPAY ==
[2025-02-10 18:34] LABS: PSA, Diagnostic 1.9 ng/mL (<=6.5)
== END 2025-02-09 04:09 | disposition home or self-care (01) ==
PROVIDERS: PCP Nurse Practitioner Family; Visit Provider Nurse Practitioner Gerontology
DX: N40.0 Benign prostatic hyperplasia without lower urinary tract symptoms (principal)
CPT/HCPCS: 36415; 84153

== ENCOUNTER → 2025-02-16 08:11 | Outpatient (BNVA) | payer MEDICARE, SELFPAY | PROVIDERS: PCP Nurse Practitioner Family; Visit Provider Nurse Practitioner Gerontology | DX: R31.29 Other microscopic hematuria (principal); N40.0 Benign prostatic hyperplasia without lower urinary tract symptoms; N21.0 Calculus in bladder; R97.20 Elevated prostate specific antigen [PSA]; R39.9 Unspecified symptoms and signs involving the genitourinary system | CPT/HCPCS: 99213; 81002; 51798 ==

== ENCOUNTER 2025-03-09 14:18 | Outpatient (CLI) | payer MEDICARE, SELFPAY ==
--- NOTE | 2025-03-09 13:30 | DI.RAD_ITS ---
Exam(s) XR KNEE LT 3V AP,LAT,ZEB EXAM: XR KNEE LT 3V AP,LAT,ZEB CLINICAL HISTORY: LEFT KNEE PAIN. TECHNIQUE: 2D digital imaging was performed. COMPARISON: CR XR KNEE LT 3V AP,LAT,ZEB from 01/26/2025 FINDINGS: 3 views compared to 01/26/2025. Again noted is total arthroplasty with no loosening evident. Again noted is a fracture fragment off of the superolateral aspect of the patella, radiographically unchanged from 01/05/2025 and 01/26/2025. The amount of lateral tilting of the patella is also unchanged. No new fractures evident IMPRESSION: Patellar fracture of position appear unchanged from 01/05/2025 and 01/26/2025. DATA REPOSITORY: RADIATION DOSE DELIVERED:
== END 2025-03-09 14:19 | disposition home or self-care (01) ==
LOC: DIORS 14:18
PROVIDERS: PCP Nurse Practitioner Family; Referring Provider Nurse Practitioner Family; Visit Provider Student in an Organized Health Care Education/Training Program
DX: S82.002D Unspecified fracture of left patella, subsequent encounter for closed fracture with routine healing (principal); W19.XXXD Unspecified fall, subsequent encounter; Z96.652 Presence of left artificial knee joint; Z96.642 Presence of left artificial hip joint
CPT/HCPCS: 99213; 73562

== ENCOUNTER → 2025-05-04 00:55 | Outpatient (CLI) | payer MEDICARE, SELFPAY ==
--- NOTE | 2025-05-04 06:45 | DI.MRI_ITS ---
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 CONTRAST MATERIAL: IV Contrast: 20 mL of Dotarem contrast administered. COMPARISON: MR MR ABDOMEN WO/W from 04/15/[address] CHEST PE CTA from 08/17/[address] LUMBAR SPINE WO from 10/29/2024 FINDINGS: Lung bases: Unremarkable. Liver: There are couple of small cysts in the liver. No suspicious hepatic masses are present. The liver shows normal signal. Pancreas: Unremarkable. There is no evidence of a pancreatic mass. Gallbladder and Bile Ducts: There is no cholelithiasis. There is no biliary ductal dilatation. Adrenals: Unremarkable. Kidneys: There are small simple cysts seen in the right kidney. The post ablation cavity shows hypointense signal on the T2 weighted image and hyperintense signal on the T1 weighted image. Following contrast administration, there is no enhancement. Spleen: Unremarkable. Bowel: There is no evidence of bowel wall thickening or obstruction. Aorta: Unremarkable. Soft Tissues: There is gynecomastia. Bone: Pedicle screws and posterior spinal rods are seen in the lower lumbar spine. Lymph Nodes: Unremarkable. IMPRESSION: The patient is status post ablation of a left renal cell carcinoma. The post ablation cavity shows no contrast enhancement. No evidence of residual tumor is seen. DATA REPOSITORY:
[2025-05-04] MEDS: Normal Saline - Diluent 50 ML VIAL IJ (09:39)
[2025-05-04] MEDS: Gadoterate meglumine 20 ML VIAL IJ (09:39)
== END ==
LOC: DI 00:55
PROVIDERS: PCP Nurse Practitioner Family; Visit Provider Nurse Practitioner Gerontology
DX: C64.2 Malignant neoplasm of left kidney, except renal pelvis (principal)
CPT/HCPCS: 74183